=== PATIENT | male | born 1975 | race Caucasian/White ===

== ENCOUNTER 2017-08-28 14:59 | Inpatient (IN) | payer MEDICARE, MEDICAID ==
[2017-08-28] MEDS ORDERED: EPINEPHrine 1 MG/ML AMP ONE ×2 (15:14→15:15)
[2017-08-28] MEDS ORDERED: Vancomycin HCl 1 GM in Premix Bag 1 BAG IVPB SCH (16:15)
[2017-08-28] MEDS ORDERED: Gentamicin Sulfate 80 MG in Premix Bag 1 BAG IVPB SCH (16:15)
[2017-08-28 16:37] LABS: #Basophils 0.1 thou/uL (0.0-0.2); #Eosinphils 0.3 thou/uL (0.0-0.7); #Lymphocytes 2.8 thou/uL (1.20-3.40); #Monocytes 1.5 thou/uL (0.11-0.59); #Neutrophils 13.8 thou/uL (1.40-6.50); %Basophils 0.6 % (0.0-1.0); %Eosinophils 1.8 % (0.0-10.0); %Lymphocytes 15.2 % (21.0-51.0); %Monocytes 7.9 % (0.0-10.0); Hematocrit 33.9 % (42.0-52.0); Red Blood Cell (RBC) Count 3.61 mill/uL (4.70-6.10); White Blood Cell (WBC) Count 18.5 thou/uL (4.8-10.8)
[2017-08-28 16:59] LABS: Anion Gap 21 mmol/L (10-20); BUN (Urea Nitrogen) 62 mg/dL (8.9-20.6); Calc. Creatinine Clearance 0 mL/min (70-130); Calcium 9.2 mg/dL (7.8-10.44); Carbon Dioxide 25 mmol/L (22-29); Chloride 98 mmol/L (98-107); Estimated GFR-MDRD 7
[2017-08-28] MEDS ORDERED: Dextrose 50% Abboject 50 ML SYRINGE IVP PRN (19:33)
[2017-08-28] MEDS ORDERED: Dextrose 5% in Water 1,000 ML IV PRN (19:33)
[2017-08-28] MEDS ORDERED: HumaLOG 300 UNITS/3 ML VIAL SC PRN (19:33)
[2017-08-28] MEDS ORDERED: HYDROcodone/Acetaminophen 5/325 mg Tablet PO PRN ×2 (19:34)
--- NOTE | 2017-08-28 21:10 | HP ---
HISTORY OF PRESENT ILLNESS: Nimesh Tolbert is a 41-year-old male patient, dialyzes Friday, and Friday, . The patient is followed by Dr. Pearce. 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 Axillary artery repair undertaken and a left wrist Tequila fistula placed. This failed to mature an d had faint signals and Dr. Venkat Dominguez performed arteriography noting brachial artery to be occlu ded. The patient subsequently underwent revascularization with reverse greater saphenous vein from right thigh. This was placed through a left axillary incision and seemed to work well, but develope d an infection, bleeding requiring emergent removal and ligation of the proximal distal artery. Onc e this was ligated, wound was left open to heal by secondary intention with wound VAC. It has since healed. He has been relying on a left internal jugular cuffed tunnel dialysis catheter. I saw him on last visit and informed him that he will need more permanent dialysis access. [facility] and is not a candidate for peritoneal dialysis. He is reluctant to have access in his rig ht arm due to the complications resulting in tissues of his left arm. In addition, he has developed ischemic changes in all fingertips and thumb tips. This left arm is paralyzed. He will probably w ind up with partial amputation of the left arm. Patient has developed Pseudomonas bacteremia and aranda s been sent to my office. In my office, the catheter and cuff were dislodged and he was admitted to the hospital for dialysis today. Antibiotic administration and post-dialysis removal of his cathet er. We will place a new catheter tomorrow. He can be discharged home tomorrow postoperatively. Considering his paralyzed left arm and ischemic fingers, he has a risk for amputation, have discusse d with Vascular Surgery. The situation is felt that it is not worthwhile trying to revascularize th e arm again considering his past failures. It is likely he will need a partial amputation of his le ft arm in the future. It is also necessary that he will need a right arm fistula or graft. This aranda s been reiterated to the patient. Marking ultrasound, 03/18/2017 was performed and revealed that hi s right cephalic vein and right basilic vein are small, probably not suitable for a fistula. ALLERGIES: None. TOBACCO: None. ALCOHOL: None. MEDICATIONS: Velphoro 1000 mg p.o. t.i.d. with meals, Protonix 40 mg at bedtime, Zofran p.r.n., Fos renol t.i.d. with meals, hydrocodone 5/325 p.r.n. pain, folic acid daily, atorvastatin, calcium ita y, aspirin 81 mg daily. PAST MEDICAL HISTORY: End-stage renal disease, paralyzed left arm, hypertension, hypertriglyceridem ia; diabetes mellitus type 2, coronary artery disease, status post coronary bypass grafting and aort ic valve replacement. PAST SURGICAL HISTORY: Toe amputations, coronary artery stents, bypass grafting, aortic valve repla cement, removal of bovine graft left upper arm after placement in [place] due to infection and hemorr eliana, brachial artery repair as described, left Tequila fistula, subsequent breakdown in bleeding req uiring ligation of brachial artery and wound healing by secondary intention. PHYSICAL EXAMINATION: VITAL SIGNS: 87/58, 240 pounds, 70 inches, 97 heart rate, 98.2 degrees. HEENT: Unremarkable. LUNGS: Clear to auscultation. CARDIAC: Rhythm without murmur or gallop. ABDOMEN: Soft, nontender. Left axillary wound well healed. EXTREMITIES: Paralyzed left arm, ischemic fingertips, thumb, and all fingers, left hand. Palpable radial pulse right. Dialysis catheter left chest. ASSESSMENT AND PLAN: 1. Pseudomonas bacteremia. Plan dislodgement of the catheter today in the office, removal of the c uff, freeing it to enable removal post-dialysis. We will plan dialysis tonight, vancomycin, gentami germaine administration. We will plan removal of the catheter tonight after dialysis, asked nurse to do this as it is not tunneled and not cuffed at this time. We will plan placement of a new dialysis ca theter tomorrow. 2. Paralyzed left arm at risk for amputation with ischemic left hand. I have discussed with Vascul ar Surgery, and we will not revascularize this considering his past 2 failures. 3. Prosthetic aortic valve. He will need prolonged intravenous antibiotics due to Pseudomonas bact eremia. 4. Needs custodial dialysis access. We will need a right arm graft in the future as an outpatient, probably not a candidate for peritoneal dialysis, although could consider considering this situatio n, although could not do this in the assisted probably and he is one handed and this will be dif ficult for him individually to manage peritoneal dialysis at home.
[2017-08-28] MEDS: Acetaminophen 500 MG TAB PO PRN (23:06)
--- NOTE | 2017-08-29 06:00 | CON ---
DATE OF CONSULTATION: 08/28/2017 CONSULTING PHYSICIAN: Brayan Graham M.D. REASON FOR CONSULTATION: End-stage renal disease evaluation and care. REASON FOR ADMISSION: Infected dialysis access. HISTORY OF PRESENT ILLNESS: This is a 41-year-old male with a history of end-stage renal disease, h ypertension, type 2 diabetes, who came to the hospital not feeling well. The patient is having Pseu domonas growth from his catheter and plan is to have a change out of the catheter. The patient will be admitted to dialysis and get dialysis today and then removal of the old catheter and placement o f a new catheter by Dr. Graham tomorrow. PAST MEDICAL HISTORY: Positive for end-stage renal disease, hypertension, hyperlipidemia, type 2 di abetes, coronary artery disease. PAST SURGICAL HISTORY: Dialysis access placement, multiple toe amputations, CABG, aortic valve repl acement. HOME MEDICATIONS: Tylenol, Norvasc, aspirin, Lipitor, Coreg, clindamycin. ALLERGIES: No known drug allergies. SOCIAL HISTORY: No smoking, alcohol, or illicit drug abuse. FAMILY HISTORY: No history of any kidney disease. REVIEW OF SYSTEMS: The following complete review of systems was negative, unless otherwise mentione d in the HPI or below: Constitutional: Weight loss or gain, ability to conduct usual activities. Skin: Rash, itching. Eyes: Double vision, pain. ENT/Mouth: Nose bleeding, neck stiffness, pain, tenderness. Cardiovascular: Palpitations, dyspnea on exertion, orthopnea. Respiratory: Shortnes s of breath, wheezing, cough, hemoptysis, fever or night sweats. Gastrointestinal: Poor appetite, abdominal pain, heartburn, nausea, vomiting, constipation, or diarrhea. Genitourinary: Urgency, fr equency, dysuria, nocturia. Musculoskeletal: Pain, swelling. Neurologic/Psychiatric: Anxiety, de pression. Allergy/Immunologic: Skin rash, bleeding tendency. PHYSICAL EXAMINATION: GENERAL: This is a well-developed male, in no apparent distress. VITAL SIGNS: Temperature 98.7, pulse 78, respiratory rate 18, blood pressure 120/88. HEENT: Atraumatic, normocephalic. Oral mucosa is moist. NECK: Supple, no masses. CARDIOVASCULAR: S1, S2 heard. Rate and rhythm regular. RESPIRATORY: Clear. GASTROINTESTINAL: Abdomen is soft. MUSCULOSKELETAL: No tenderness. No edema. DERMATOLOGIC: No skin rash. NEUROLOGIC: Alert, awake. PSYCHIATRIC: Mood and affect normal. LABORATORY DATA: Hemoglobin is 10.7, WBC is 18.5. ASSESSMENT AND PLAN: 1. End-stage renal disease, on hemodialysis. The patient was seen and evaluated for dialysis. ___ __ we will have dialysis. We will give 1 g of vancomycin and gentamicin with dialysis and plan is t o change out the catheter and I will give antibiotics for 2 weeks, repeat culture. We will also kevin ck echocardiogram. 2. Hyperkalemia, much better. We will recheck labs. 3. Anemia, mild. 4. Hypertension, stable. 5. Edema, controlled. Plan is to continue dialysis, change the catheter out and continue antibiotics for 2 weeks, and we w ill repeat cultures. We will follow.
[2017-08-29] MEDS: Acetaminophen 500 MG TAB PO PRN (06:44)
[2017-08-29 07:20] VITALS: TEMP 97.9
[2017-08-29] MEDS ORDERED: Bupivacaine PF 0.5% 30 ML VIAL ONE (08:11)
[2017-08-29] MEDS ORDERED: Sodium Chloride 0.9% 10 ML ONE (08:11)
[2017-08-29] MEDS ORDERED: Lidocaine 2% w/Epinephrine 1:200K 20 ML VIAL ONE (08:13)
[2017-08-29] MEDS ORDERED: Lanthanum Carbonate 500 mg Tablet PO SCH (09:00)
[2017-08-29] MEDS ORDERED: VELPHORO 500 MG PO SCH (09:00)
[2017-08-29] MEDS ORDERED: Aspirin 325 MG TAB PO SCH (09:00)
[2017-08-29] MEDS ORDERED: Heparin 1,000 UNITS/ML VIAL ONE (11:11)
[2017-08-29] MEDS ORDERED: Propofol 200 MG/20 ML VIAL ONE (11:36)
[2017-08-29] MEDS ORDERED: Midazolam HCl 2 mg/2 ml Vial ONE (11:40)
--- NOTE | 2017-08-29 12:33 | OP ---
DATE OF OPERATION: 08/29/2017 PREOPERATIVE DIAGNOSES: End-stage renal disease, legally blind, Pseudomonas bacteremia, status post removal of left internal jugular cuffed tunnel dialysis catheter, ischemic left arm, occluded left brachial artery, in need of future dialysis access, right arm ischemic changes fingertips, will need a partial amputation of the left arm future. PROCEDURE: Placement of right IJ cuffed tunneled dialysis catheter, angiodynamics precurved. Fluor oscopy and ultrasound used to facilitate catheter placement. SURGEON: Dr. Brayan Graham ANESTHESIA: Intravenous sedation and local 0.5% Marcaine, 30 mL, mixed with 2% Xylocaine, 20 mL. PROCEDURE IN DETAIL: The patient was taken to the operating room where under intravenous sedation, neck and chest were prepared with ChloraPrep, draped in routine fashion. Local anesthetic mixture i nfiltrated into skin and subcutaneous tissue about the operative site. Ultrasound was used to cannu late the right internal jugular vein, threaded, J-wire removed. Trocar catheter, enlarging the skin entrance site sharply with an 11 blade. Stab incision made over the right chest. Using the tunnel ing device, the precurved angiodynamics cuffed tunnel hemodialysis catheter tunneled between the two incisions, placing the fabric cuff beneath the skin and catheter secured with 2 interrupted sutures of 3-0 silk. Smaller and medium sized dilators placed over the J-wire into the internal jugular ve in and removed. Dilator and pull-away sheath placed over the J-wire in superior vena cava and dilat or and J-wire removed. Catheter placed with pull-away sheath; pull-away sheath removed. Fluoroscop ically, catheter noted to be in good position, platysma approximated with 4-0 Monocryl, skin with vieyra bdermal 4-0 Monocryl and DermaGlue and sterile dressings applied. Each port aspirated blood and flu shed with saline solution then flushed with heparinized saline solution 1000 units heparin per mL in dicated volume of the port.
[2017-08-29 12:39] VITALS: BP 120/63
[2017-08-29] MEDS ORDERED: Gentamicin Sulfate 80 MG in Premix Bag 1 BAG IVPB SCH (13:00)
[2017-08-29 13:17] VITALS: BMI 33.5
--- NOTE | 2017-08-29 14:01 | PRG ---
DATE OF SERVICE: 08/29/2017 SUBJECTIVE: Patient was seen and examined at bedside and overnight events noted. Patient denies an y shortness of breath or chest pain or palpitation. No history of nausea or vomiting or diarrhea or fever or chills or cramps. OBJECTIVE: GENERAL: This is a well-built male in no apparent distress. VITAL SIGNS: Temperature 97.9. Pulse 70. Respiratory rate 18. Blood pressure 113/58. HEENT: Atraumatic and normocephalic. Oral mucosa is moist. NECK: Supple. CARDIOVASCULAR: S1, S2 heard. Rate and rhythm regular. RESPIRATORY: Clear to auscultation. GASTROINTESTINAL: Abdomen is soft. MUSCULOSKELETAL: No tenderness. No edema. DERMATOLOGIC: No skin rash. NEUROLOGIC: Alert and awake and oriented x3. No focal neurologic deficits. Moving all the extremi ties. PSYCHIATRIC: Mood and affect normal. LABORATORY DATA: Potassium is 5.3, BUN is 62, and creatinine 8.09. ASSESSMENT AND PLAN: 1. End-stage renal disease on hemodialysis. Continue dialysis as tolerated. We will have dialysis today and okay to discharge home. 2. Hyperkalemia. 3. Anemia. 4. Hypertension. 5. Edema. 6. Plan is to have dialysis for 3 hours today with gentamicin for 4 weeks and we will follow up ech ocardiogram also. We will follow. Thank you for the consult.
--- NOTE | 2017-08-29 15:14 | RAD ---
PORTABLE CHEST 1 VIEW: Date: 08/29/17 Time: 1218 hours HISTORY: End-stage renal disease. FINDINGS/IMPRESSION: There are changes of median sternotomy. The heart is enlarged. There is a right internal jugular estefani ble lumen dialysis catheter with tips in the projection of the SVC. No pneumothoraces, lobar consoli dation, lizzeth pulmonary edema, or large effusions are seen. POS: KYLE
--- NOTE | 2017-08-30 10:01 | DIS ---
DATE OF ADMISSION: 08/28/2017 DATE OF DISCHARGE: 08/29/2017 DISCHARGE DIAGNOSES: 1. Legal blindness. 2. Paralyzed left arm. 3. Occluded left brachial artery. 4. End-stage renal disease, on maintenance dialysis via left IJ hemodialysis catheter. 5. Positive bacteremia, Pseudomonas. 6. Status post aortic valve replacement and coronary artery bypass grafting. 7. Diabetes mellitus. 8. Hypertension. 9. Decreased mobility. 10. [facility] resident. PROCEDURES: Removal of left internal jugular cuffed tunnel dialysis catheter in my office, freeing the cuff, leaving the catheter, admission to the hospital, dialysis and gentamicin intravenous admin istration along with vancomycin 1 g. The patient had a fever that night in the hospital, at midnigh t 101, but none since. He was taken to the operating room the next day and a right IJ cuffed tunnel hemodialysis catheter placed. The patient tolerated the procedure well. He went to dialysis posto peratively and being transferred to the [facility]. The patient has been reluctant to have a right arm fistula considering the status of his left arm, w hich is nonfunctional. He has ischemic changes in left hand and will need a partial amputation of l eft arm. Transcutaneous oxygen measurements had been ordered and hyperbaric to help determine level of amputation at left arm, but there was no one present in the hospital to do this in this hospital ization and this was not done. The patient had a new dialysis catheter placed today and then underg [facility] dialysis will be transferred back to the senior living. He will see me in the office in about 2 weeks. He will get gentamicin during dialysis under Dr. Pearce's orders for the next 4-5 weeks, c onsidering his prosthetic aortic valve and Pseudomonas bacteremia. He will need a right arm fistula or graft in the future. Ultrasound vein mapping previously reveals veins supoptimal for fistula, b ut exploration will be undertaken to help accomplish this versus a prosthetic graft. He is not a ca ndidate for peritoneal dialysis due to non-use of his left arm. As far as the left arm, probably re ferral to Dr. Chino, who had to be made for partial amputation of left arm. TCOM measurements of t he left arm for determination of amputation level need to be obtained. The patient will resume his prehospitalization admission medications.
== END 2017-08-29 19:13 | disposition home or self-care (01) | DRG 314 ==
LOC: T4-A 15:05 → ONC 15:43
PROVIDERS: ADMIT Specialist; ATTEND Specialist
PROC: 5A1D70Z Performance of Urinary Filtration, Intermittent, Less than 6 Hours Per Day (ICD-10-PCS; 2017-08-28)
PROC: 02HV33Z Insertion of Infusion Device into Superior Vena Cava, Percutaneous Approach (ICD-10-PCS; principal; 2017-08-29)
DX: T82.7XXA Infection and inflammatory reaction due to other cardiac and vascular devices, implants and grafts, initial encounter (principal); N18.6 End stage renal disease; I12.0 Hypertensive chronic kidney disease with stage 5 chronic kidney disease or end stage renal disease; E87.5 Hyperkalemia; E11.9 Type 2 diabetes mellitus without complications; B96.5 Pseudomonas (aeruginosa) (mallei) (pseudomallei) as the cause of diseases classified elsewhere; D64.9 Anemia, unspecified; I70.208 Unspecified atherosclerosis of native arteries of extremities, other extremity; G83.24 Monoplegia of upper limb affecting left nondominant side; H54.8 Legal blindness, as defined in USA; Z95.2 Presence of prosthetic heart valve; Z99.2 Dependence on renal dialysis; Z95.1 Presence of aortocoronary bypass graft; Z89.429 Acquired absence of other toe(s), unspecified side; Z79.82 Long term (current) use of aspirin; Y83.8 Other surgical procedures as the cause of abnormal reaction of the patient, or of later complication, without mention of misadventure at the time of the procedure
CPT/HCPCS: 36416; 71010; 80048; 85025; 87040; 87077; 87149; 87186; 87340; 90935; 93306; A4216; C1752; C1769; G0257; J0171; J1580; J1642; J1644; J2250; J2704; J3370; S0020

== ENCOUNTER 2018-01-29 11:40 | Inpatient (IN) | payer OTHER, MEDICARE, MEDICAID ==
[2018-01-29 12:19] LABS: #Basophils 0.1 thou/uL (0.0-0.2); #Lymphocytes 1.1 thou/uL (1.20-3.40); #Monocytes 1.1 thou/uL (0.11-0.59); #Neutrophils 11.2 thou/uL (1.40-6.50); %Basophils 0.6 % (0.0-1.0); %Eosinophils 0.1 % (0.0-10.0); %Lymphocytes 8.4 % (21.0-51.0); %Monocytes 7.8 % (0.0-10.0); %Neutrophils 83.1 % (42.0-75.0); Hemoglobin 13.4 g/dL (14.0-18.0); Mean Corpuscular HGB CONC 31.2 g/dL (32.0-36.0); Mean Corpuscular Hemoglobin 30.1 pg (27.0-31.0); Mean Corpuscular Volume 96.4 fl (80.0-94.0); Mean Platelet Volume 8.6 fL (7.4-10.4); Platelet Count 151 thou/uL (130-400); RBC Distribution Width 15.5 % (11.5-14.5); Red Blood Cell (RBC) Count 4.46 mill/uL (4.70-6.10); White Blood Cell (WBC) Count 13.5 thou/uL (4.8-10.8)
[2018-01-29] MEDS ORDERED: Ondansetron HCl/PF 4 MG/2 ML Vial ONE ×2 (12:20→12:22)
[2018-01-29] MEDS ORDERED: Morphine 4 MG/ML VIAL ONE (12:20)
[2018-01-29 12:39] LABS: ALT (SGPT) 20 U/L (8-55); AST (SGOT) 10 U/L (5-34); Albumin 3.9 g/dL (3.5-5.0); Alkaline Phosphatase 107 U/L (40-150); Anion Gap 21 mmol/L (10-20); BUN (Urea Nitrogen) 73 mg/dL (8.9-20.6); Bilirubin, Total 0.5 mg/dL (0.2-1.2); Calc. Creatinine Clearance 0 mL/min (70-130); Calcium 9.1 mg/dL (7.8-10.44); Carbon Dioxide 22 mmol/L (22-29); Chloride 96 mmol/L (98-107); Estimated GFR-MDRD 6; Globulin 3.5 g/dL (2.4-3.5); Glucose 136 mg/dL (70-105); Potassium 5.1 mmol/L (3.5-5.1); Protein, Total 7.4 g/dL (6.0-8.3); Sodium 134 mmol/L (136-145)
[2018-01-29] MEDS ORDERED: Acetaminophen 500 MG TAB PO PRN ×2 (18:08→19:33)
[2018-01-29] MEDS ORDERED: Dextrose 5% in Water 1,000 ML IV PRN (19:33)
[2018-01-29] MEDS ORDERED: HumaLOG 300 UNITS/3 ML VIAL SC PRN (19:33)
[2018-01-29] MEDS ORDERED: hydrALAZINE 20 MG/ML VIAL SLOW IVP PRN (19:33)
[2018-01-29] MEDS ORDERED: Ondansetron HCl/PF 4 MG/2 ML Vial IVP PRN (19:33)
[2018-01-29] MEDS ORDERED: Polyethylene Glycol 3350 17 GM Packet PO PRN (19:33)
[2018-01-29] MEDS ORDERED: Docusate 100 MG CAP PO PRN (19:33)
[2018-01-29] MEDS ORDERED: Dextrose 50% Abboject 50 ML SYRINGE SLOW IVP PRN (19:33)
[2018-01-29] MEDS ORDERED: Ondansetron ODT 4 MG TAB PO PRN (19:33)
[2018-01-29] MEDS ORDERED: Famotidine 20 MG TAB PO SCH (21:00)
--- NOTE | 2018-01-29 21:05 | HP ---
DATE OF ADMISSION: 01/29/2018 PRIMARY CARE PHYSICIAN: Dr. Nimesh Graham. PRIMARY CADASTRAL ENGINEER: Dr. Pearce. CHIEF COMPLAINT: Left arm swelling and fever. HISTORY OF PRESENT ILLNESS: This is a 42-year-old male who presents from [facility] complaining of less than one-day history of left upper extremity redness, swelling, and fever. Patient states he woke up and the arm was red, swollen, and painful with diffic ulty to bend at the elbow. Patient does state he receives hemodialysis 3 times per week at [facility] on Friday, Friday, and Friday. Patient states he has been on dialysis since 7. Patient reports he was last in dialysis in the last 24 hours. Patient admits to subjective fever , chills, and body aches with difficulty bending the left elbow to a straight position. Patient also admits to drainage and loss of fingernails on the left hand, but is unclear on the time course of th e condition. Patient with an extensive history of peripheral vascular disease, end-stage renal disea se on hemodialysis as well as coronary artery disease, and advanced diabetes mellitus, insulin requir ing. Patient has had 4 toe amputations as well as undergone dialysis shunt placement and bypass surg fabián x3. In the emergency department, patient was noted with swelling to the left upper extremity wit h profound erythema and Calor treated with IV vancomycin, morphine sulfate, and Zofran. Patient was referred to the Hospitalist Service for admission. PAST MEDICAL HISTORY: 1. End-stage renal disease with current hemodialysis on Friday, Friday, and Friday. 2. Left upper extremity paresis. 3. Peripheral vascular disease with ischemic left hand. 4. Hypertension. 5. Hyperlipidemia. 6. Diabetes mellitus type 2, insulin requiring with end-stage renal disease, diabetic retinopathy, a nd peripheral vascular disease. 7. Coronary artery disease. PAST SURGICAL HISTORY: 1. Status post amputation of two toes on each foot. 2. Status post AV fistula placement for hemodialysis. 3. Status post coronary artery bypass grafting x3 vessels. 4. Status post aortic valve replacement. 5. Status post removal of bovine graft. 6. Status post placement and subsequent removal of temporary-tunneled hemodialysis catheters. 7. Status post brachial artery repair. CURRENT MEDICATIONS: 1. Aspirin 325 mg 1 tab p.o. daily. 2. Lipitor 80 mg p.o. at bedtime. 3. PhosLo 1334 mg p.o. b.i.d. with meals. 4. Coreg 3.125 mg p.o. b.i.d. 5. Zyrtec 10 mg p.o. daily. 6. Vitamin D3 of 2000 units p.o. daily. 7. Docusate sodium 100 mg p.o. daily. 8. Folic acid 0.8 mg p.o. daily. 9. Humalog 5 units subcutaneously t.i.d. with meals. 10. [place] 5/325 mg 1 tab p.o. q.4-6 hours p.r.n. pain. 11. Tresiba FlexTouch 50 units subcutaneously at bedtime. 12. Probiotic 1 capsule p.o. daily. 13. Melatonin 6 mg p.o. at bedtime. 14. Zofran 4 mg p.o. q.6 hours p.r.n. nausea. 15. Veltassa 8.4 grams p.o. b.i.d. 16. MiraLax 17 grams p.o. daily. 17. Risperdal 0.25 mg p.o. at bedtime. ALLERGIES: No known drug allergies. FAMILY HISTORY: Positive for diabetes mellitus and hypertension. SOCIAL HISTORY: Patient resides at [facility]. No current alcohol, t obacco, or illicit drug use. Medical power of research attorney, Tee Lopez. CODE STATUS: DO NOT RESUSCITATE, confirmed with the patient. REVIEW OF SYSTEMS: The following complete review of systems was otherwise negative, except as stated per HPI: Constitutional: Weight loss or gain, ability to conduct usual activities. Skin: Rash, i tching. Eyes: Double vision, pain. ENT/Mouth: Nose bleeding, neck stiffness, pain, tenderness. C ardiovascular: Palpitations, dyspnea on exertion, orthopnea. Respiratory: Shortness of breath, whe ezing, cough, hemoptysis, fever or night sweats. Gastrointestinal: Poor appetite, abdominal pain, h eartburn, nausea, vomiting, constipation, or diarrhea. Genitourinary: Urgency, frequency, dysuria, nocturia. Musculoskeletal: Pain, swelling. Neurologic/Psychiatric: Anxiety, depression. Allergy/ Immunologic: Skin rash, bleeding tendency. PHYSICAL EXAMINATION: VITAL SIGNS: Vital signs on admission showed a blood pressure 115/112, pulse 88, respiratory rate 20 , temperature 99.3 degrees Fahrenheit, O2 saturation 99% on room air. GENERAL APPEARANCE: This is a 42-year-old male, alert and oriented x3, pleasant, responsiv e, in no acute distress. HEENT: Extraocular muscles are intact. No scleral icterus, no conjunctival injection. Nares patent . OP is clear. NECK: Supple, no cervical adenopathy, no thyromegaly, no carotid bruits, no JVD appreciated. Cervic al spine with full active and passive range of motion. CHEST: Lungs are clear to auscultation bilaterally. CARDIOVASCULAR: S1, S2 without noted murmur. ABDOMEN: Rounded, soft, nontender, nondistended. Bowel sounds are positive in all four quadrants. There is no hepatosplenomegaly, no abdominal bruits, no rebound or guarding appreciated. EXTREMITIES: No clubbing, cyanosis. No lower extremity asymmetric edema noted. Pulses is diminishe d in the dorsalis pedis and posterior tibial arteries. Post-surgical changes to bilateral feet consi stent with prior amputation of first and second toes. Left upper extremity with erythema, edema, and Calor with tenderness to palpation. Decreased range of motion of the left upper extremity with some contractures noted of the hand. Left hand fingertips with maceration, malodorous, purulent discharg e consistent with wet-gangrene. Ischemic changes noted at the fingertips of all fingers of the left hand. NEUROLOGIC: Visual impairment noted, chronic. Rest of the cranial nerves II-XII are grossly intact. Patient not observed ambulatory during this exam. Left upper extremity with paresis and contractur e of the hand. PERTINENT LABORATORY DATA AND X-RAY FINDINGS: Sodium 134, potassium 5.1, chloride 96, CO2 of 22, BUN 73, creatinine 9.49, estimated GFR 6, glucose 136. Lactic acid level 1.1, calcium 9.1. LFTs within normal limits. CBC showed a white blood cell count of 13.5, hemoglobin 13.4, hematocrit of 43, MCV 96, platelet count 151, 83% neutrophilia. ASSESSMENT AND PLAN: 1. Left upper extremity cellulitis. Patient will be admitted to the telemetry unit. We will contin ue vancomycin, sliding scale due to end-stage renal disease on hemodialysis. Add Rocephin 2 grams IV q.24 hours, first dose now. Blood cultures x2 pending. Consult General Surgery service for evaluat ion of left upper extremity arteriovenous fistula. Continue to monitor clinical response. 2. Gangrene of the left fingertips. We will continue antibiotic therapy as outlined in #1. Consult Wound Care team for local care and evaluation. Consult General Surgery service for consideration of surgical intervention. 3. End-stage renal disease with hemodialysis. We will consult Nephrology service for ongoing [facility] hemodialysis during the hospital course. No current evidence of acute volume overload with nee d for urgent hemodialysis. 4. Diabetes mellitus, type 2, insulin requiring. Continue home insulin regimen. Insulin sliding sc lalo for reflexive coverage. Accu-Cheks before meals and at bedtime. ADA diet. 5. Neutrophilic leukocytosis secondary to #1. We will continue treatment as outlined in #1. Repeat CBC in the a.m. 6. Peripheral vascular disease with occluded left brachial artery. Consult General Surgery service for evaluation and consideration for surgical intervention. 7. Coronary artery disease, chronic and stable. Resume home medication regimen to include aspirin 3 25 mg daily. Continue Lipitor 80 mg p.o. at bedtime. 8. Prophylaxis. Sequential compression devices while in bed. Pepcid 20 mg p.o. b.i.d. Influenza a nd pneumonia vaccinations, current. 9. Code status is DO NOT RESUSCITATE, confirmed with the patient. Medical power of research attorney, Tee Lopez.
[2018-01-29] MEDS: cefTRIAXone\\ROCEPHIN 2 GM in Sodium Chloride 0.9% 100 ML IVPB SCH (21:29)
[2018-01-29] MEDS: Atorvastatin Calcium 40 MG TAB PO SCH (21:30)
[2018-01-29] MEDS: Carvedilol 3.125 MG TAB PO SCH (21:30)
[2018-01-29] MEDS: Famotidine 20 MG TAB PO SCH (21:30)
[2018-01-29] MEDS: risperiDONE 0.25 MG TAB PO SCH (21:31)
[2018-01-29] MEDS: Heparin 5,000 UNITS/ML VIAL SC SCH ×2 (21:32)
[2018-01-29] MEDS: Melatonin 3 MG TAB PO SCH (21:32)
--- NOTE | 2018-01-29 23:14 | CON ---
DATE OF CONSULTATION: 01/29/2018 CONSULTING PHYSICIAN: Dr. Luna. REASON FOR CONSULTATION: End-stage renal disease evaluation and care. REASON FOR ADMISSION: Left cellulitis. HISTORY OF PRESENT ILLNESS: This is a 42-year-old white male with history of end-stage renal disease , hypertension, type 2 diabetes, CHF, hyperlipidemia, who came to the hospital with left arm pain and swelling and redness and is being treated for left arm cellulitis. The patient gets dialysis Friday , Friday, and Friday. Nephrology consult for maintenance hemodialysis. No nausea, vomiting repor lucio. He had some chills and fever. PAST MEDICAL HISTORY: Positive for end-stage renal disease on hemodialysis Friday, Friday, and ; CHF; CAD; type 2 diabetes; hyperlipidemia. PAST SURGICAL HISTORY: Dialysis shunt placement and amputation, appendectomy, cholecystectomy. HOME MEDICATIONS: Include PhosLo, Zyrtec, vitamin D3, Coreg, Zofran, [place], Joana-Anel, Tylenol, Allyn Lax, and Veltassa. ALLERGIES: No known drug allergies. SOCIAL HISTORY: No smoking, alcohol or illicit drug abuse. FAMILY HISTORY: No history of any kidney disease. REVIEW OF SYSTEMS: The following complete review of systems was negative, unless otherwise mentioned in the HPI or below: Constitutional: Weight loss or gain, ability to conduct usual activities. Skin: Rash, itching. Eyes: Double vision, pain. ENT/Mouth: Nose bleeding, neck stiffness, pain, tenderness. Cardiovascular: Palpitations, dyspnea on exertion, orthopnea. Respiratory: Shortness of breath, wheezing, cough, hemoptysis, fever or night sweats. Gastrointestinal: Poor appetite, abdominal pain, heartburn, nausea, vomiting, constipation, or diarr hea. Genitourinary: Urgency, frequency, dysuria, nocturia. Musculoskeletal: Pain, swelling. Neurologic/Psychiatric: Anxiety, depression. Allergy/Immunologic: Skin rash, bleeding tendency. PHYSICAL EXAMINATION: GENERAL: This is a well-built male, in no apparent distress. VITAL SIGNS: Temperature 100.2, pulse 87, respiratory rate 18, blood pressure 113/69. HEENT: Atraumatic, normocephalic. Oral mucosa is moist. NECK: Supple, no masses. CARDIOVASCULAR: S1, S2 heard. Rate and rhythm regular. RESPIRATORY: Clear. GASTROINTESTINAL: Abdomen is soft. MUSCULOSKELETAL: 1+ edema. DERMATOLOGIC: No rash. NEUROLOGIC: Alert and awake. PSYCHIATRIC: Mood and affect normal. LABORATORY DATA: Hemoglobin is 13.4. Potassium is 5.1, BUN is 73, creatinine is 9.4. ASSESSMENT AND PLAN: 1. End-stage renal disease. Continue on dialysis Friday, Friday, and Friday. No dialysis today. 2. Edema, controlled. 3. Hypertension. 4. Anemia. Hemoglobin is stable. 5. Obesity. Plan is to continue on dialysis as tolerated.
[2018-01-30 06:01] LABS: Band 1 % (5-11); Hemoglobin 11.7 g/dL (14.0-18.0); Lymphocytes 21 % (21-51); MDiff Complete? YES; Mean Corpuscular HGB CONC 32.2 g/dL (32.0-36.0); Mean Corpuscular Hemoglobin 30.6 pg (27.0-31.0); Mean Corpuscular Volume 95.2 fl (80.0-94.0); Mean Platelet Volume 8.9 fL (7.4-10.4); Monocytes 12 % (0-10); Neutrophil 66 % (42-75); PLT Morphology Comment Appears Adequate; Platelet Count 140 thou/uL (130-400); RBC Distribution Width 15.2 % (11.5-14.5); Red Blood Cell (RBC) Count 3.83 mill/uL (4.70-6.10); White Blood Cell (WBC) Count 11.8 thou/uL (4.8-10.8)
[2018-01-30 06:02] LABS: Anion Gap 23 mmol/L (10-20); BUN (Urea Nitrogen) 91 mg/dL (8.9-20.6); Calc. Creatinine Clearance 17 mL/min (70-130); Calcium 8.7 mg/dL (7.8-10.44); Carbon Dioxide 22 mmol/L (22-29); Chloride 99 mmol/L (98-107); Estimated GFR-MDRD 5; Glucose 121 mg/dL (70-105); Potassium 5.5 mmol/L (3.5-5.1); Sodium 138 mmol/L (136-145)
[2018-01-30] MEDS ORDERED: HumaLOG 300 UNITS/3 ML VIAL SC SCH (08:00)
[2018-01-30] MEDS: Folic Acid/Vit B Comp W-C PO SCH (09:12)
[2018-01-30] MEDS: Aspirin 325 MG TAB PO SCH (09:12)
[2018-01-30] MEDS: Lanthanum Carbonate 500 mg Tablet PO SCH ×2 (09:12→18:14)
[2018-01-30] MEDS: Calcium Acetate 667 MG CAP PO SCH ×2 (09:12→18:15)
[2018-01-30] MEDS: Saccharomyces boulardii 250 MG CAP PO SCH (09:12)
[2018-01-30] MEDS: Loratadine 10 MG TAB PO SCH (09:13)
[2018-01-30] MEDS: Heparin 5,000 UNITS/ML VIAL SC SCH ×4 (09:17→20:59)
[2018-01-30] MEDS ORDERED: Heparin 1,000 UNITS/ML VIAL ONE (11:11)
--- NOTE | 2018-01-30 15:36 | PDOC.PN ---
- Subjective Encounter Start Date: 01/30/18 Encounter Start Time: 15:20 Subjective: f/u for LUE cellulitis and ?gangrene of left fingers in context of ischemia -: to LUE and AV fistula in upper extremity. Tx with Vancomycin and Rocephin - Objective Resuscitation Status: Resuscitation Status DNR:Do Not Resuscitate MAR Reviewed: Yes Vital Signs & Weight: Vital Signs (12 hours) Temp Pulse Resp BP Pulse Ox 01/30/18 13:40 98.8 F 81 16 116/58 L 97 01/30/18 08:13 99.4 F 86 16 141/83 H 95 01/30/18 03:35 99.2 F 84 17 147/83 H 95 Weight Admit Weight 292 lb 15.909 oz Weight 292 lb 1.546 oz I&O: 01/29/18 01/30/18 01/31/18 06:59 06:59 06:59 Intake Total 698 Output Total 200 Balance 498 Result Diagrams: 01/30/18 05:34 01/30/18 05:34 Additional Labs: Accuchecks 01/29/18 01/29/18 20:20 17:26 POC Glucose 197 H 107 Microbiology 01/29/18 21:10 Finger Bacterial Culture - Preliminary Staphylococcus species 01/29/18 12:09 Venous blood - Right Arm Blood Culture - Preliminary Specimen has been received and culture in progress. No Growth to date. 01/29/18 12:04 Venous blood - Right Arm Blood Culture - Preliminary Coagulase Neg Staphylococcus Laboratory Tests 01/29/18 01/29/18 01/30/18 12:09 12:09 05:34 WBC 13.5 H Neutrophils % 83.1 H Neutrophils % (Manual) 66 Potassium 5.1 Creatinine 9.49 H EKG Reviewed by me: Yes (Tele - SR in 70's) Phys Exam - Physical Examination Constitutional: NAD HEENT: sclera anicteric, oral pharynx no lesions Neck: no JVD, supple Respiratory: no wheezing, clear to auscultation bilateral Cardiovascular: RRR Gastrointestinal: soft, non-tender, no distention, positive bowel sounds LUE with edema and erythema L hand fingertips with maceration, cyanotic and malodorous discharge LUE flaccid paresis Neurological: moves all 4 limbs Psychiatric: A&O x 3 Deviation from normal: LUE cellulitis in humerus distribution Skin: normal turgor Dx/Plan (1) Cellulitis of left upper extremity Code(s): L03.114 - CELLULITIS OF LEFT UPPER LIMB Status: Acute Comment: Continue Rocephin and sliding scale Vancomycin with HD (2) Gangrene of finger of left hand Code(s): I96 - GANGRENE, NOT ELSEWHERE CLASSIFIED Status: Acute Comment: Consult Gen surgery for evaluation, WCT for local care, continue Vancomycin and Rocephin (3) Bacteremia, coagulase-negative staphylococcal Code(s): R78.81 - BACTEREMIA Status: Acute Comment: Potential contaminant however high risk for staph infection given hx, ischemia and open wounds to Left fingertips (4) ESRD (end stage renal disease) on dialysis Code(s): N18.6 - END STAGE RENAL DISEASE; Z99.2 - DEPENDENCE ON RENAL DIALYSIS Status: Chronic Comment: HD per Renal service, completed maintenance HD 01/30 (5) PVD (peripheral vascular disease) Code(s): I73.9 - PERIPHERAL VASCULAR DISEASE, UNSPECIFIED Status: Chronic Comment: Continue ASA 325mg daily (6) DM2 (diabetes mellitus, type 2) Status: Chronic Qualifiers: Diabetes mellitus longterm insulin use: with business support specialist use Diabetes mellitus complication status: with kidney complications Diabetes mellitus complication detail: with chronic kidney disease Chronic kidney disease stage : on chronic dialysis Qualified Code(s): E11.22 - Type 2 diabetes mellitus with diabetic chronic kidney disease; N18.6 - End stage renal disease; Z79.4 - [facility] (current) use of insulin; Z99.2 - Dependence on renal dialysis Comment: Continue Tresiba 50u sc HS, ISS - Plan continue antibiotics, PT/OT, social security assessor, DVT proph w/SCDs Stable currently -: WCT for local care of L hand -: Continue Rocephin -: Vancomycin sliding scale with HD -: HD per Renal service * AM lab: BMP, CBC
[2018-01-30] MEDS ORDERED: HOLD VANCOMYCIN FOR LEVEL >20 FS SCH (16:15)
[2018-01-30] MEDS ORDERED: Vancomycin Sliding Scale 1 EACH FS ONE (16:15)
[2018-01-30] MEDS ORDERED: Vancomycin HCl 1 GM in Premix Bag 1 BAG IVPB SCH ×4 (16:15)
[2018-01-30] MEDS ORDERED: Vancomycin HCl 1.25 GM in Sodium Chloride 0.9% 250 ML 250 ML IVPB SCH (16:15)
[2018-01-30] MEDS ORDERED: Vancomycin HCl 750 MG in Sodium Chloride 0.9% 250 ML 250 ML IVPB SCH (16:15)
[2018-01-30] MEDS ORDERED: Sodium Chloride 0.9% 10 ML ONE (18:21)
[2018-01-30] MEDS: HumaLOG 300 UNITS/3 ML VIAL SC PRN (18:26)
[2018-01-30 18:32] LABS: Vancomycin, Trough 10.6 ug/mL
[2018-01-30] MEDS: Carvedilol 3.125 MG TAB PO SCH ×2 (19:29→21:00)
[2018-01-30] MEDS: Patiromer Calcium Sorbitex [Veltassa] 8.4 GM PO SCH (20:58)
[2018-01-30] MEDS: Atorvastatin Calcium 40 MG TAB PO SCH (20:59)
[2018-01-30] MEDS: Famotidine 20 MG TAB PO SCH (20:59)
[2018-01-30] MEDS: HYDROcodone/Acetaminophen 5/325 mg Tablet PO PRN (21:00)
[2018-01-30] MEDS: cefTRIAXone\\ROCEPHIN 2 GM in Sodium Chloride 0.9% 100 ML IVPB SCH (21:01)
[2018-01-30] MEDS: Melatonin 3 MG TAB PO SCH (21:01)
[2018-01-30] MEDS: risperiDONE 0.25 MG TAB PO SCH (21:01)
--- NOTE | 2018-01-30 23:30 | PRG ---
DATE OF SERVICE: 01/30/2018 SUBJECTIVE: Patient was seen and examined at bedside and overnight events noted. Patient denies any shortness of breath or chest pain or palpitation. No history of nausea or vomitin g or diarrhea or fever or chills or cramps. OBJECTIVE: GENERAL: This is a well-built male, in no apparent distress. VITAL SIGNS: Temperature 98.0, pulse 81, respiratory rate , blood pressure 116/58. HEENT: Atraumatic, normocephalic. Oral mucosa is moist NECK: Supple. CARDIOVASCULAR: S1 and S2 heard. Rate and rhythm regular. RESPIRATORY: Clear to auscultation. GASTROINTESTINAL: Abdomen is soft. MUSCULOSKELETAL: No tenderness. No edema. DERMATOLOGIC: No skin rash. NEUROLOGIC: Alert and awake and oriented X3, No focal neurologic deficits. Moving all the extremitie s. PSYCHIATRIC: Mood and affect normal. LABORATORY DATA: Potassium is 5.5, BUN 91, creatinine is 10.4. ASSESSMENT AND PLAN: 1. End-stage renal disease. Continue on hemodialysis as tolerated. The patient was seen and evalua lucio at dialysis and we will follow. 2. Edema, controlled. 3. Hypertension. 4. Anemia. 5. Obesity. Plan is to continue on dialysis as tolerated.
--- NOTE | 2018-01-31 00:14 | CON ---
DATE OF CONSULT: 01/30/2018 HISTORY OF PRESENT ILLNESS: A 42-year-old male, DNR patient, shelter resident, [place] dialyze s at [facility]. Mr. Tolbert presented on 03/19/2017, with a left upper arm looped, bovine dialysis graft, placed in [place]. He had an abscess in the axilla that I saw initially requi ring incision and drainage. He has bacteremic from thrombosed loop graft in [place] with methicillin- resistant Staph aureus bacteremia and hemorrhage from the left axillary graft arterial segment. He h ad an excellent left wrist cephalic vein for Tequila fistula. The patient was taken to the operating room on 03/19/2017, a left wrist Tequila fistula placed port heiden vein. I then explored the right brachi al artery, removed the bovine loop graft from the upper arm and repair of the brachial artery with re versed greater saphenous vein patch graft harvested from the right thigh. On 03/21/2017, he had poor function of his left Tequila fistula and he underwent a surgical evaluation with thrombectomy. Notin g good arterial inflow and intraoperative angiogram has ligation of the Tequila fistula collaterals. It was felt that he had a poor signal, but it was patent and at this point on 07/09/2017, the patient was returned to the operating room after Dr. Venkat Dominguez performed an arteriogram, revealing the b rachial artery be occluded. I then harvested the reversed saphenous vein from right thigh, revascula rized the right axillary artery, brachial artery, left arm. On 07/18/2017, the patient experienced h emorrhage from the left axilla with hematoma and underwent exploration, finding disruption of the vei n graft anastomosis. This Tequila fistula was ligated at the wrist to maximize blood flow of the hand and I could not reconstruct the brachial artery. By this time, the patient had a paralyzed left arm . The patient on 08/29/2017 had placement of right IJ cuffed tunnel dialysis catheter because of Pse udomonas bacteremia, requiring removal of the catheter. I initially saw the patient on 02/28/2017 for debridement of diabetic foot ulcers and on 03/04/2017 f or bacteremia related to dialysis catheter. He initially had a dialysis catheter placed at [facility] in [place] and then he was referred to [facility] in [place] for left upp er arm dialysis graft, leading to the bovine graft and subsequent hemorrhage infection, requiring rem oval, and subsequent bleeding and problems relating to paralysis of his left arm and occluded brachia l artery. Upper extremity dialysis access is terminated. The patient did have a marking ultrasound on 03/18/2017, noting cephalic vein in the right upper arm to be poor. This hospitalization, he has a right antecubital IV in place. In the interim, the patient has been sent from [facility], for dialysis access. I have talked to him about consideration of placement of a thigh graft. I have talked to him previously re garding long-term dialysis access to prevent complications of bacteremia from his hemodialysis cathet er, chronic use. The patient, however, is not followed up with me and he states that the dialysis ce melissa in [place] sent him to back to [place] for a long-term dialysis access. I have talked to him in the past about long-term dialysis access probably requiring a prosthetic graft, probably in his right upper extremity versus thigh. He wishes to salvage his only functioning right upper extremity and a void access here and thus we determined that at some point he would need a thigh dialysis graft. The patient is admitted this hospitalization with erythema and cellulitis of left upper arm. At the time of his past surgery, removal of his bovine prosthetic graft in his left upper extremity accompli shed that, and there is no evidence or suggestion that any fragment of this graft remains. The patie nt is admitted for vancomycin and observation. I have been asked to see him regarding his left upper arm cellulitis. The patient has remained afebrile. White count has fallen from 13 to 11 and hemogl obin 11. Blood cultures from his right arm are positive for coagulase negative Staphylococcus. Evaluation of his left arm reveals cellulitis. There is no fluctuance, no induration, no evidence of a foreign body along the course of the previous bovine graft in his upper arm. His left axilla spar ed from the cellulitic process. PHYSICAL EXAMINATION: VITAL SIGNS: Temperature 98.8 degrees, heart rate 81, blood pressure 116/58. LUNGS: Clear to auscultation. CARDIAC: Regular rate and rhythm without murmur or gallop. ABDOMEN: Soft, nontender. EXTREMITIES: Palpable radial positive, right. Paralyzed left arm, erythema of left upper arm, spari ng the axilla, affecting the anterior, anterior medial and slightly lateral upper arm. ASSESSMENT AND PLAN: 1. Bacteremia, positive blood cultures. This could be related to the cellulitis in left upper arm a nd more likely his chronic dialysis catheter. Currently, there are no indications for his surgical a ttention to his left upper arm. As far as I know, there is no prosthetic material in his left upper arm. There are no areas of induration or fluctuance or firmness to suggest a foreign body or drainab le fluid collection. At this point, I would continue parenteral antibiotics. 2. Bacteremia, possibly coming from his left upper arm cellulitis or his chronic indwelling catheter . He has had multiple bacteremic episodes from his chronic indwelling dialysis catheter. I have josé miguel ked to him in the past regarding placement of a more permanent dialysis access in his thigh, but he h as not followed up. He is chosen to go to [place] or at least he has told me that he has been told by the dialysis center in [place] that [facility] in [place] is only place that will provide dialysis access. At this point, with his current bacteremia and his cellulitis left arm, placement of a pros thetic graft is not indicated and would have to be delayed. In the future, I could perform this once his bacteremia is cleared. More than likely, he will require removal of his dialysis catheter, but we will await Dr. Drake' opinion. Currently, there is no indication for surgical intervention in his left upper arm. I suspect this probably will resolve with intravenous antibiotics. 3. Paralysis, left upper arm, exhausted left upper extremity access and patient wishes to avoid acce ss in his right upper arm, preserving his only functional arm. 4. DNR status. 5. End-stage renal disease. I will be out of town this weekend, Dr. Puga has covered him. Please call if needed. I will return next Friday
[2018-01-31] MEDS: Patiromer Calcium Sorbitex [Veltassa] 8.4 GM PO SCH ×4 (00:22→21:25)
[2018-01-31 05:50] LABS: Anion Gap 21 mmol/L (10-20); BUN (Urea Nitrogen) 66 mg/dL (8.9-20.6); Calc. Creatinine Clearance 22 mL/min (70-130); Calcium 9.7 mg/dL (7.8-10.44); Carbon Dioxide 24 mmol/L (22-29); Chloride 96 mmol/L (98-107); Estimated GFR-MDRD 7; Glucose 132 mg/dL (70-105); Potassium 4.7 mmol/L (3.5-5.1); Sodium 136 mmol/L (136-145)
[2018-01-31 06:05] LABS: Eosinophils 3 % (0-10); Hemoglobin 12.5 g/dL (14.0-18.0); Lymphocytes 12 % (21-51); MDiff Complete? YES; Mean Corpuscular HGB CONC 32.3 g/dL (32.0-36.0); Mean Corpuscular Hemoglobin 30.3 pg (27.0-31.0); Mean Corpuscular Volume 93.8 fl (80.0-94.0); Mean Platelet Volume 8.6 fL (7.4-10.4); Monocytes 21 % (0-10); Neutrophil 64 % (42-75); PLT Morphology Comment Appears Adequate; Platelet Count 151 thou/uL (130-400); RBC Distribution Width 15.3 % (11.5-14.5); RBC Morphology Normal; Red Blood Cell (RBC) Count 4.12 mill/uL (4.70-6.10); White Blood Cell (WBC) Count 9.8 thou/uL (4.8-10.8)
[2018-01-31] MEDS: Aspirin 325 MG TAB PO SCH (11:04)
[2018-01-31] MEDS: Calcium Acetate 667 MG CAP PO SCH ×2 (11:04→17:25)
[2018-01-31] MEDS: Carvedilol 3.125 MG TAB PO SCH ×2 (11:05→21:24)
[2018-01-31] MEDS: Folic Acid/Vit B Comp W-C PO SCH (11:05)
[2018-01-31] MEDS: Loratadine 10 MG TAB PO SCH (11:05)
[2018-01-31] MEDS: Saccharomyces boulardii 250 MG CAP PO SCH (11:05)
[2018-01-31] MEDS: Heparin 5,000 UNITS/ML VIAL SC SCH ×4 (11:06→21:23)
[2018-01-31] MEDS: Lanthanum Carbonate 500 mg Tablet PO SCH ×2 (11:06→17:25)
[2018-01-31 12:07] LABS: Troponin I 0.016 ng/mL (< 0.028)
--- NOTE | 2018-01-31 16:26 | PRG ---
Patient Name: EMEKA SPENCE Date of service: 01/31/2018 Subjective: Patient was seen and examined at bedside and overnight events noted. Patient denies any shortness of breath or chest pain or palpitation. No history of nausea or vomiting or diarrhea or fever or chills or cramps. Objective: General: This is a well-built male in no apparent distress. Vital signs: Temperature 98.1, pulse 80, respiratory 18, blood pressure 177/90. HEENT: Atraumatic, normocephalic. Oral mucosa is moist. Neck: Supple. Cardiovascular: S1 S2 heard. Rate and rhythm regular. Respiratory: Clear to auscultation. Gastrointestinal: Abdomen is soft. Musculoskeletal: No tenderness. No edema. Dermatologic: No skin rash. Neurologic: Alert and awake and oriented X3. No focal neurologic deficits. Moving all the extremit ies. Psychiatric: Mood and affect normal. LABORATORY DATA: Potassium is 4.7, BUN 66, creatinine 3.2. ASSESSMENT AND PLAN: 1. End-stage renal disease on hemodialysis. 2. Cellulitis. Continue antibiotics. 3. Edema, controlled. 4. Hypertension. 5. Anemia. 6. Obesity. Continue on dialysis Friday, Friday, and Friday as tolerated.
--- NOTE | 2018-01-31 16:39 | PDOC.PN ---
- Subjective Encounter Start Date: 01/31/18 Encounter Start Time: 16:37 Subjective: c/o pain in left arm.o/w no pain anywhere else.no N/V/D/AP -: nursing reports 9 beats of abberancy and few PVC.pt asymptomatic -: no CP/SOB/Palpitations/dizziness - Objective Resuscitation Status: Resuscitation Status DNR:Do Not Resuscitate MAR Reviewed: Yes Vital Signs & Weight: Vital Signs (12 hours) Temp Pulse Resp BP BP Pulse Ox 01/31/18 10:52 98.1 F 80 18 177/90 H 97 01/31/18 08:00 97.9 F 78 20 177/85 H 97 Weight Admit Weight 292 lb 15.909 oz Weight 290 lb I&O: 01/30/18 01/31/18 02/01/18 06:59 06:59 06:59 Intake Total 698 1040 960 Output Total 200 4100 Balance 498 -3060 960 Result Diagrams: 02/01/18 05:41 02/02/18 05:34 Additional Labs: Accuchecks 01/31/18 01/30/18 01/30/18 05:38 21:20 16:50 POC Glucose 122 H 156 H 180 H 01/30/18 05:41 POC Glucose 111 H Microbiology 01/29/18 21:10 Finger Bacterial Culture - Preliminary Methicillin resistant S.aureus 01/29/18 12:09 Venous blood - Right Arm Blood Culture - Preliminary Specimen has been received and culture in progress. No Growth to date. 01/29/18 12:04 Venous blood - Right Arm Blood Culture - Preliminary Coagulase Neg Staphylococcus Radiology Reviewed by me: Yes Phys Exam - Physical Examination Constitutional: NAD HEENT: PERRLA, moist MMs, sclera anicteric, oral pharynx no lesions Neck: no nodes, no JVD, supple, full ROM Respiratory: no wheezing, no rales, no rhonchi, clear to auscultation bilateral Cardiovascular: RRR, no significant murmur Gastrointestinal: soft, non-tender, no distention, positive bowel sounds Musculoskeletal: no edema LUE erythema,fading periphery.extreme tenderness to even superficial touch able to move left forearm off the bed.all fingers in bandages Neurological: non-focal, normal sensation, moves all 4 limbs Psychiatric: normal affect, A&O x 3 Dx/Plan (1) Arrhythmia Code(s): I49.9 - CARDIAC ARRHYTHMIA, UNSPECIFIED Status: Resolved (2) Cellulitis of left upper extremity Code(s): L03.114 - CELLULITIS OF LEFT UPPER LIMB Status: Acute Comment: Continue Rocephin and sliding scale Vancomycin with HD (3) Gangrene of finger of left hand Code(s): I96 - GANGRENE, NOT ELSEWHERE CLASSIFIED Status: Acute Comment: Consult Gen surgery for evaluation, WCT for local care, continue Vancomycin and Rocephin (4) Bacteremia, coagulase-negative staphylococcal Code(s): R78.81 - BACTEREMIA Status: Acute Comment: Potential contaminant however high risk for staph infection given hx, ischemia and open wounds to Left fingertips (5) Sepsis Code(s): A41.9 - SEPSIS, UNSPECIFIED ORGANISM Status: Suspected Qualifiers: Sepsis type: methicillin resistant Staphylococcus aureus Qualified Code(s) : A41.02 - Sepsis due to Methicillin resistant Staphylococcus aureus (6) Anemia of renal disease Code(s): D63.1 - ANEMIA IN CHRONIC KIDNEY DISEASE Status: Chronic (7) CAD (coronary artery disease) Code(s): I25.10 - ATHSCL HEART DISEASE OF [place] CORONARY ARTERY W/O ANG PCTRS Status: Chronic Qualifiers: Coronary Disease-Associated Artery/Lesion type: bypass graft [place] vs. transplanted heart: [place] heart Associated angina: without angina Qualified Code(s): I25.810 - Atherosclerosis of coronary artery bypass graft(s) without angina pectoris Comment: CABG 2017.on ASA,statin,BB (8) DM2 (diabetes mellitus, type 2) Status: Chronic Qualifiers: Diabetes mellitus halfway insulin use: with halfway use Diabetes mellitus complication status: with kidney complications Diabetes mellitus complication detail: with chronic kidney disease Chronic kidney disease stage : on chronic dialysis Qualified Code(s): E11.22 - Type 2 diabetes mellitus with diabetic chronic kidney disease; N18.6 - End stage renal disease; N18.6 - End stage renal disease; N18.6 - End stage renal disease; N18.6 - End stage renal disease; Z79.4 - buttermaker continuous churn (current) use of insulin; Z79.4 - buttermaker continuous churn ( current) use of insulin; Z79.4 - halfway (current) use of insulin; Z79.4 - halfway (current) use of insulin; Z99.2 - Dependence on renal dialysis; Z99.2 - Dependence on renal dialysis; Z99.2 - Dependence on renal dialysis; Z99.2 - Dependence on renal dialysis Comment: Continue Tresiba 50u sc HS, ISS (9) Dyslipidemia Code(s): E78.5 - HYPERLIPIDEMIA, UNSPECIFIED Status: Chronic (10) ESRD (end stage renal disease) on dialysis Code(s): N18.6 - END STAGE RENAL DISEASE; Z99.2 - DEPENDENCE ON RENAL DIALYSIS Status: Chronic Comment: HD per Renal service, completed maintenance HD 01/30 (11) Obesity (BMI 30-39.9) Code(s): E66.9 - OBESITY, UNSPECIFIED Status: Chronic (12) PVD (peripheral vascular disease) Code(s): I73.9 - PERIPHERAL VASCULAR DISEASE, UNSPECIFIED Status: Chronic Comment: Continue ASA 325mg daily (13) Secondary hyperparathyroidism of renal origin Code(s): N25.81 - SECONDARY HYPERPARATHYROIDISM OF RENAL ORIGIN Status: Chronic (14) Hyperkalemia, diminished renal excretion Code(s): E87.5 - HYPERKALEMIA Status: Chronic - Plan continue antibiotics, PT/OT, DVT proph w/SCDs No intervention per GS.h/o brachial art occlusion w grafting w re-occlusion -: empiric ABx. "finger Cx" +ve for MRSA.unclear how it was obtained.vanco -: will consult ID.may need angiogram of LUE w persistant severe pain -: will also consult cardiology for asymptomatic arrythmia as h/o severe CAD -: Troponin,mag checked stat and WNL.ECHO 07/27 WNL * . Monitor lytes,renal FX. HD per nephrology.daily labs.Potassium normalized w HD leucocytosis improved Review of Systems - Review of Systems Constitutional: weakness, malaise. negative: fever, chills, sweats, other ENT: negative: Ear Pain, Ear Discharge, Nose Pain, Nose Discharge, Nose Congestion, Mouth Pain, Mouth Swelling, Throat Pain, Throat Swelling, Other Respiratory: negative: Cough, Dry, Shortness of Breath, Hemoptysis, SOB with Excertion, Pleuritic Pain, Sputum, Wheezing Cardiovascular: negative: chest pain, palpitations, orthopnea, paroxysmal nocturnal dyspnea, edema, light headedness, other Gastrointestinal: negative: Nausea, Vomiting, Abdominal Pain, Diarrhea, Constipation, Melena, Hematochezia, Other Genitourinary: negative: Dysuria, Frequency, Incontinence, Hematuria, Retention , Other Musculoskeletal: Arm Pain, Hand Pain. negative: Neck Pain, Shoulder Pain, Back Pain, Leg Pain, Foot Pain, Other Skin: Rash - Medications/Allergies Allergies/Adverse Reactions: Allergies Allergy/AdvReac Type Severity Reaction Status Date / Time No Known Allergies Allergy Verified 07/15/17 02:05 Medications: Current Medications Acetaminophen (Tylenol) 1,000 mg PO Q6H PRN PRN Reason: Headache/Fever or Mild Pain Hydrocodone Bitart/Acetaminophen ([place] 5/325) 1 tab PO Q4HR PRN PRN Reason: Pain Last Admin: 01/30/18 21:00 Dose: 1 tab Aspirin (Aspirin) 325 mg PO DAILY [facility] Last Admin: 01/31/18 11:04 Dose: 325 mg Atorvastatin Calcium (Lipitor) 80 mg PO HS [facility] Last Admin: 01/30/18 20:59 Dose: 80 mg Calcium Acetate (Phoslo) 1,334 mg PO BID-[facility] Last Admin: 01/31/18 11:04 Dose: 1,334 mg Carvedilol (Coreg) 3.125 mg PO BID [facility] Last Admin: 01/31/18 11:05 Dose: 3.125 mg Cholecalciferol (Vitamin D3) 2,000 units PO DAILY [facility] Last Admin: 01/31/18 11:05 Dose: 2,000 units Clonidine (Catapres) 0.1 mg PO Q4H PRN PRN Reason: Systolic BP > 180 Dextrose/Water (Dextrose 50%) 25 gm SLOW IVP PRN PRN PRN Reason: Hypoglycemia Docusate Sodium (Colace) 100 mg PO DAILY PRN PRN Reason: Constipation Famotidine (Pepcid) 20 mg PO 2100 [facility] Last Admin: 01/30/18 20:59 Dose: 20 mg Glucagon (Glucagon) 1 mg IM PRN PRN PRN Reason: Hypoglycemia Heparin Sodium (Porcine) (Heparin) 5,000 units SC BID [facility] Last Admin: 01/31/18 11:06 Dose: 5,000 units Hydralazine HCl (Apresoline) 10 mg SLOW IVP Q4H PRN PRN Reason: Systolic BP > 180 Ceftriaxone Sodium 2 gm/ (Sodium Chloride) 100 mls @ 200 mls/hr IVPB 2100 [facility] Last Admin: 01/30/18 21:01 Dose: 100 mls Dextrose/Water (D5w) 1,000 mls @ 0 mls/hr IV .Q0M PRN; As Directed PRN Reason: Hypoglycemia Vancomycin HCl 1.25 gm/ Sodium (Chloride) 250 mls @ 166.667 mls/hr IVPB [facility] Vancomycin HCl 1 gm/ Device 200 mls @ 200 mls/hr IVPB [facility] Vancomycin HCl 750 mg/ Sodium (Chloride) 250 mls @ 250 mls/hr IVPB [facility] Vancomycin HCl 500 mg/ Sodium (Chloride) 100 mls @ 100 [facility]ls[facility] Insulin Human Lispro (Humalog) 0 units SC .MODERATE SLIDING SC PRN PRN Reason: Moderate Correctional Scale Last Admin: 01/30/18 18:26 Dose: 2 unit Insulin Human Lispro (Humalog) 0 units SC .BEDTIME SLIDING SC PRN PRN Reason: Bedtime Correctional Scale Lanthanum Carbonate (Fosrenol) 1,000 mg PO BID-[facility] Last Admin: 01/31/18 11:06 Dose: 1,000 mg Loratadine (Claritin) 10 mg PO DAILY [facility] Last Admin: 01/31/18 11:05 Dose: 10 mg Melatonin (Melatonin) 6 mg PO [facility] Last Admin: 01/30/18 21:01 Dose: Not Given Hold Vancomycin For (Level >20) 0 each FS .AT DIALYSIS [facility] Ondansetron HCl (Zofran Odt) 4 mg PO Q6H PRN PRN Reason: Nausea/Vomiting Ondansetron HCl (Zofran) 4 mg IVP Q6H PRN PRN Reason: Nausea/Vomiting [Tresiba Flextouch U (-100] 50 Unit)) 0 each SC [facility] Last Admin: 01/31/18 00:23 Dose: Not Given Patiromer Calcium Sorbitex [Veltassa] 8.4 Gm 1 each PO BID [facility] Last Admin: 01/31/18 11:07 Dose: 1 each Polyethylene Glycol (Miralax) 17 gm PO DAILY PRN PRN Reason: Constipation Risperidone (Risperidone) 0.25 mg PO [facility] Last Admin: 01/30/18 21:01 Dose: 0.25 mg Saccharomyces Boulardii (Florastor) 250 mg PO DAILY [facility] Last Admin: 01/31/18 11:05 Dose: 250 mg Vitamin B Complex/Vit C/Folic Acid (Nephro-Anel Tablet) 1 tab PO DAILY [facility] Last Admin: 01/31/18 11:05 Dose: 1 tab
--- NOTE | 2018-01-31 17:14 | CON ---
DATE OF CONSULTATION: 01/31/2018 REASON FOR CONSULTATION: Wide complex rhythm. PRIMARY GIN POLE OPERATOR: Dr. Cj Pace. HISTORY OF PRESENT ILLNESS: Mr. Tolbert is a pleasant 42-year-old white gentleman, who comes to the hospital for fever and arm pain. He was diagnosed with left arm cellulitis and was admitted for IV antibiotics. He was placed on telemetry and was found earlier today to have about 5-6 beats of nonsustained wide complex rhythm. So, Cardiology is being consulted. He does have a significant history of coronary artery disease. He underwent heart catheterization last year and eventually needed a coronary artery bypass grafting performed by Dr. Dominguez in August of last year. He has never followed up with Cardiology since. He denies any chest pain, tightness, pressure, no shortness of breath, lightheaded. No syncope or presyncope, PND, or orthopnea. PAST MEDICAL HISTORY: 1. End-stage renal disease, on hemodialysis Friday, Friday, Friday, by Dr. Pearce. 2. Left upper extremity paresis. 3. Peripheral vascular disease with ischemic left hand. 4. Hypertension. 5. Hyperlipidemia. 6. Type 2 diabetes. 7. Diabetic retinopathy. 8. Coronary artery disease as above. PAST SURGICAL HISTORY: 1. Amputation of 2 toes. 2. AV fistula placement. 3. Coronary artery bypass grafting x3 in 08/2017. 4. Aortic valve replacement. 5. Removal of bovine graft. 6. Removal of temporary tunneled hemodialysis catheters and brachial artery repair. OUTPATIENT MEDICATIONS: Include, 1. Aspirin 325 a day. 2. Lipitor 80 at bedtime. 3. PhosLo. 4. Coreg 3.125 mg b.i.d. 5. Zyrtec 10 mg a day. 6. Vitamin D3. 7. Docusate. 8. Folic acid. 9. Humalog. 10. [place]. 11. Tresiba. 12. Probiotic. 13. Melatonin. 14. Zofran. 15. Veltassa. 16. MiraLax. 17. Risperdal. ALLERGIES: No known drug allergies. FAMILY HISTORY: Noncontributory. SOCIAL HISTORY: Lives at the [facility] [place]. No alcohol, tobacco, or drugs. REVIEW OF SYSTEMS: A 12-point review of systems was done and is otherwise negative unless stated in history of present illness. PHYSICAL EXAMINATION: VITAL SIGNS: Temperature 98.1, pulse 80, respiratory rate 18, satting 97% on room air, blood pressure 177/90. GENERAL: Awake, alert, oriented x3, in no distress noted. HEENT: Normocephalic, atraumatic. NECK: Supple. LUNGS: Clear. CARDIOVASCULAR: S1, S2, no S3 or S4. No murmurs or rubs. ABDOMEN: Soft, positive bowel sounds. EXTREMITIES: No edema. Erythema around the left shoulder area of his cellulitis. SKIN: Warm and dry. LABORATORY WORK: Reviewed. CBC with a white count of 13, down to 9.8; hemoglobin 12.5; platelet count of 151. Chemistry was reviewed. Toxicology, vancomycin trough. Telemetry imaging was reviewed. ASSESSMENT AND PLAN: 1. Nonsustained wide complex rhythm. This could be nonsustained VT. He is not having any ischemic symptoms and the only therapy for this would be a beta jefry, which he is already on. Currently, he is DNR/DNI. He does not wish to have any invasive interventions done for the heart. At this point, we would continue conservative therapy with a beta jefry and continue IV antibiotics. Thank you for letting us participate in the care of your patient. We will sign off for now. Please call with any questions. MI
[2018-01-31] MEDS: cefTRIAXone\\ROCEPHIN 2 GM in Sodium Chloride 0.9% 100 ML IVPB SCH (21:23)
[2018-01-31] MEDS: risperiDONE 0.25 MG TAB PO SCH (21:24)
[2018-01-31] MEDS: Famotidine 20 MG TAB PO SCH (21:24)
[2018-01-31] MEDS: Atorvastatin Calcium 40 MG TAB PO SCH (21:24)
[2018-01-31] MEDS: HYDROcodone/Acetaminophen 5/325 mg Tablet PO PRN (21:24)
[2018-01-31] MEDS: Melatonin 3 MG TAB PO SCH (21:31)
[2018-02-01 06:32] LABS: #Basophils 0.1 thou/uL (0.0-0.2); #Eosinphils 0.1 thou/uL (0.0-0.7); #Lymphocytes 1.7 thou/uL (1.20-3.40); #Monocytes 1.1 thou/uL (0.11-0.59); #Neutrophils 5.9 thou/uL (1.40-6.50); %Basophils 1.2 % (0.0-1.0); %Eosinophils 1.2 % (0.0-10.0); %Lymphocytes 19.2 % (21.0-51.0); %Monocytes 12.6 % (0.0-10.0); %Neutrophils 65.7 % (42.0-75.0); Mean Corpuscular HGB CONC 31.6 g/dL (32.0-36.0); Mean Corpuscular Hemoglobin 30.2 pg (27.0-31.0); Mean Corpuscular Volume 95.5 fl (80.0-94.0); Platelet Count 199 thou/uL (130-400); RBC Distribution Width 15.3 % (11.5-14.5); Red Blood Cell (RBC) Count 4.31 mill/uL (4.70-6.10)
[2018-02-01 06:42] LABS: Anion Gap 24 mmol/L (10-20); BUN (Urea Nitrogen) 93 mg/dL (8.9-20.6); Calc. Creatinine Clearance 17 mL/min (70-130); Calcium 9.5 mg/dL (7.8-10.44); Carbon Dioxide 24 mmol/L (22-29); Chloride 97 mmol/L (98-107); Estimated GFR-MDRD 5; Glucose 110 mg/dL (70-105); Potassium 5.2 mmol/L (3.5-5.1); Sodium 140 mmol/L (136-145)
[2018-02-01] MEDS: Aspirin 325 MG TAB PO SCH (09:00)
[2018-02-01] MEDS: Folic Acid/Vit B Comp W-C PO SCH (09:00)
[2018-02-01] MEDS: Loratadine 10 MG TAB PO SCH (09:01)
[2018-02-01] MEDS: Carvedilol 3.125 MG TAB PO SCH ×2 (09:01→20:38)
[2018-02-01] MEDS: Calcium Acetate 667 MG CAP PO SCH ×2 (09:01→18:06)
[2018-02-01] MEDS: Saccharomyces boulardii 250 MG CAP PO SCH (09:02)
[2018-02-01] MEDS: Lanthanum Carbonate 500 mg Tablet PO SCH ×2 (09:06→18:07)
[2018-02-01] MEDS: Heparin 5,000 UNITS/ML VIAL SC SCH ×4 (09:13→20:15)
[2018-02-01] MEDS: cloNIDine 0.1 MG TAB PO PRN (11:52)
[2018-02-01] MEDS: Patiromer Calcium Sorbitex [Veltassa] 8.4 GM PO SCH ×2 (12:44→21:19)
[2018-02-01] MEDS ORDERED: ISOVUE-370 76%-LOCM 1 ML ONE (13:04)
--- NOTE | 2018-02-01 14:31 | PDOC.PN ---
- Subjective Encounter Start Date: 02/01/18 Encounter Start Time: 14:27 Subjective: feels well. still has severe pain w light touch to left arm -: able to work w Pt and sitting i chair after almost 1 year! - Objective Resuscitation Status: Resuscitation Status DNR:Do Not Resuscitate MAR Reviewed: Yes Vital Signs & Weight: Vital Signs (12 hours) Temp Pulse Pulse Resp BP BP BP 02/01/18 13:23 78 02/01/18 11:52 189/103 H 02/01/18 11:45 97.7 F 78 20 02/01/18 11:20 77 198/91 H 02/01/18 08:00 97.7 F 78 20 160/70 H 02/01/18 05:52 96.7 F L 78 18 BP BP Pulse Ox 02/01/18 13:23 126/77 02/01/18 11:52 02/01/18 11:45 189/103 H 99 02/01/18 11:20 02/01/18 08:00 97 02/01/18 05:52 163/75 H 97 Weight Admit Weight 292 lb 15.909 oz Weight 293 lb 11.2 oz I&O: 01/31/18 02/01/18 02/02/18 06:59 06:59 06:59 Intake Total 1040 2100 240 Output Total 4100 Balance -3060 2100 240 Result Diagrams: 02/01/18 05:41 02/02/18 05:34 Additional Labs: Accuchecks 01/31/18 01/31/18 21:04 16:37 POC Glucose 199 H 175 H Microbiology 01/29/18 21:10 Finger Bacterial Culture - Preliminary Methicillin resistant S.aureus 01/29/18 12:09 Venous blood - Right Arm Blood Culture - Preliminary NO GROWTH AT 48 HOURS 01/29/18 12:04 Venous blood - Right Arm Blood Culture - Preliminary Coagulase Neg Staphylococcus Phys Exam - Physical Examination Constitutional: NAD HEENT: PERRLA, moist MMs, sclera anicteric, oral pharynx no lesions Neck: no nodes, no JVD, supple, full ROM Respiratory: no wheezing, no rales, no rhonchi, clear to auscultation bilateral Cardiovascular: RRR, no significant murmur, no rub, gallop Gastrointestinal: soft, non-tender, no distention, positive bowel sounds Musculoskeletal: no edema, pulses present Neurological: non-focal, normal sensation LUE weakness and hyperesthesias Psychiatric: normal affect, A&O x 3 Skin: no rash Dx/Plan (1) Cellulitis of left upper extremity Code(s): L03.114 - CELLULITIS OF LEFT UPPER LIMB Status: Acute Comment: Continue Rocephin and sliding scale Vancomycin with HD (2) Gangrene of finger of left hand Code(s): I96 - GANGRENE, NOT ELSEWHERE CLASSIFIED Status: Acute Comment: Consult Gen surgery for evaluation, WCT for local care, continue Vancomycin and Rocephin (3) Sepsis Code(s): A41.9 - SEPSIS, UNSPECIFIED ORGANISM Status: Suspected Qualifiers: Sepsis type: methicillin resistant Staphylococcus aureus Qualified Code(s) : A41.02 - Sepsis due to Methicillin resistant Staphylococcus aureus (4) Bacteremia, coagulase-negative staphylococcal Code(s): R78.81 - BACTEREMIA Status: Acute Comment: Potential contaminant however high risk for staph infection given hx, ischemia and open wounds to Left fingertips (5) Anemia of renal disease Code(s): D63.1 - ANEMIA IN CHRONIC KIDNEY DISEASE Status: Chronic (6) CAD (coronary artery disease) Code(s): I25.10 - ATHSCL HEART DISEASE OF [place] CORONARY ARTERY W/O ANG PCTRS Status: Chronic Qualifiers: Coronary Disease-Associated Artery/Lesion type: bypass graft [place] vs. transplanted heart: [place] heart Associated angina: without angina Qualified Code(s): I25.810 - Atherosclerosis of coronary artery bypass graft(s) without angina pectoris Comment: CABG 2017.on ASA,statin,BB (7) DM2 (diabetes mellitus, type 2) Status: Chronic Qualifiers: Diabetes mellitus intermediate manager insulin use: with [place] [facility] use Diabetes mellitus complication status: with kidney complications Diabetes mellitus complication detail: with chronic kidney disease Chronic kidney disease stage : on chronic dialysis Qualified Code(s): E11.22 - Type 2 diabetes mellitus with diabetic chronic kidney disease; N18.6 - End stage renal disease; N18.6 - End stage renal disease; N18.6 - End stage renal disease; N18.6 - End stage renal disease; Z79.4 - correction (current) use of insulin; Z79.4 - [place] ( current) use of insulin; Z79.4 - correction (current) use of insulin; Z79.4 - correction (current) use of insulin; Z99.2 - Dependence on renal dialysis; Z99.2 - Dependence on renal dialysis; Z99.2 - Dependence on renal dialysis; Z99.2 - Dependence on renal dialysis Comment: Continue Tresiba 50u sc HS, ISS (8) Dyslipidemia Code(s): E78.5 - HYPERLIPIDEMIA, UNSPECIFIED Status: Chronic (9) ESRD (end stage renal disease) on dialysis Code(s): N18.6 - END STAGE RENAL DISEASE; Z99.2 - DEPENDENCE ON RENAL DIALYSIS Status: Chronic Comment: HD per Renal service, completed maintenance HD 01/30 (10) Obesity (BMI 30-39.9) Code(s): E66.9 - OBESITY, UNSPECIFIED Status: Chronic (11) PVD (peripheral vascular disease) Code(s): I73.9 - PERIPHERAL VASCULAR DISEASE, UNSPECIFIED Status: Chronic Comment: Continue ASA 325mg daily (12) Secondary hyperparathyroidism of renal origin Code(s): N25.81 - SECONDARY HYPERPARATHYROIDISM OF RENAL ORIGIN Status: Chronic (13) Arrhythmia Code(s): I49.9 - CARDIAC ARRHYTHMIA, UNSPECIFIED Status: Resolved (14) Muscular deconditioning Code(s): R29.898 - OTH SYMPTOMS AND SIGNS INVOLVING THE MUSCULOSKELETAL SYSTEM Status: Acute - Plan continue antibiotics, PT/OT, out of bed/ambulate, DVT proph w/SCDs appreciate cradiology Input.no recurrance of arrythmia.cont BB -: HD per nephrology.daily labs -: cont vancomycin /Rocephin for now. Blood Cx likley contaminanat. -: Finger Cx shows MRSA ? significance.ID consulted -: will arrange rehab at his [place].Pt was walking prior to falling sick * .Cellulitis improving.No surgical intervention per Review of Systems - Review of Systems Constitutional: negative: fever, chills, sweats, weakness, malaise, other Respiratory: negative: Cough, Dry, Shortness of Breath, Hemoptysis, SOB with Excertion, Pleuritic Pain, Sputum, Wheezing Cardiovascular: negative: chest pain, palpitations, orthopnea, paroxysmal nocturnal dyspnea, edema, light headedness, other Gastrointestinal: negative: Nausea, Vomiting, Abdominal Pain, Diarrhea, Constipation, Melena, Hematochezia, Other Genitourinary: negative: Dysuria, Frequency, Incontinence, Hematuria, Retention , Other Musculoskeletal: negative: Neck Pain, Shoulder Pain, Arm Pain, Back Pain, Hand Pain, Leg Pain, Foot Pain, Other Skin: negative: Rash, Lesions, Km, Bruising, Other Neurological: Weakness (Left UE). negative: Numbness, Incoordination, Change in Speech, Confusion, Seizures, Other - Medications/Allergies Allergies/Adverse Reactions: Allergies Allergy/AdvReac Type Severity Reaction Status Date / Time No Known Allergies Allergy Verified 07/15/17 02:05 Medications: Current Medications Acetaminophen (Tylenol) 1,000 mg PO Q6H PRN PRN Reason: Headache/Fever or Mild Pain Hydrocodone Bitart/Acetaminophen ([place] 5/325) 1 tab PO Q4HR PRN PRN Reason: Pain Last Admin: 01/31/18 21:24 Dose: 1 tab Aspirin (Aspirin) 325 mg PO DAILY [facility] Last Admin: 02/01/18 09:00 Dose: 325 mg Atorvastatin Calcium (Lipitor) 80 mg PO HS [facility] Last Admin: 01/31/18 21:24 Dose: 80 mg Calcium Acetate (Phoslo) 1,334 mg PO BID-[facility] Last Admin: 02/01/18 09:01 Dose: 1,334 mg Carvedilol (Coreg) 3.125 mg PO BID [facility] Last Admin: 02/01/18 09:01 Dose: 3.125 mg Cholecalciferol (Vitamin D3) 2,000 units PO DAILY [facility] Last Admin: 02/01/18 09:02 Dose: 2,000 units Clonidine (Catapres) 0.1 mg PO Q4H PRN PRN Reason: Systolic BP > 180 Last Admin: 02/01/18 11:52 Dose: 0.1 mg Dextrose/Water (Dextrose 50%) 25 gm SLOW IVP PRN PRN PRN Reason: Hypoglycemia Docusate Sodium (Colace) 100 mg PO DAILY PRN PRN Reason: Constipation Famotidine (Pepcid) 20 mg PO 2100 [facility] Last Admin: 01/31/18 21:24 Dose: 20 mg Glucagon (Glucagon) 1 mg IM PRN PRN PRN Reason: Hypoglycemia Heparin Sodium (Porcine) (Heparin) 5,000 units SC BID [facility] Last Admin: 02/01/18 09:13 Dose: 5,000 units Hydralazine HCl (Apresoline) 10 mg SLOW IVP Q4H PRN PRN Reason: Systolic BP > 180 Ceftriaxone Sodium 2 gm/ (Sodium Chloride) 100 mls @ 200 mls/hr IVPB 2100 [facility] Last Admin: 01/31/18 21:23 Dose: 100 mls Dextrose/Water (D5w) 1,000 mls @ 0 mls/hr IV .Q0M PRN; As Directed PRN Reason: Hypoglycemia Vancomycin HCl 1.25 gm/ Sodium (Chloride) 250 mls @ 166.667 mls/hr IVPB [facility] Vancomycin HCl 1 gm/ Device 200 mls @ 200 mls/hr [facility] Vancomycin HCl 750 mg/ Sodium (Chloride) 250 mls @ 250 mls/hr IVPB [facility] Vancomycin HCl 500 mg/ Sodium (Chloride) 100 mls @ 100 mls/hr IVPB [facility] Insulin Human Lispro (Humalog) 0 units SC .MODERATE SLIDING SC PRN PRN Reason: Moderate Correctional Scale Last Admin: 01/30/18 18:26 Dose: 2 unit Insulin Human Lispro (Humalog) 0 units SC .BEDTIME SLIDING SC PRN PRN Reason: Bedtime Correctional Scale Lanthanum Carbonate (Fosrenol) 1,000 mg PO BID-[facility] Last Admin: 02/01/18 09:06 Dose: 1,000 mg Loratadine (Claritin) 10 mg PO DAILY [facility] Last Admin: 02/01/18 09:01 Dose: 10 mg Melatonin (Melatonin) 6 mg PO [facility] Last Admin: 01/31/18 21:31 Dose: Not Given Hold Vancomycin For (Level >20) 0 each FS .AT DIALYSIS [facility] Ondansetron HCl (Zofran Odt) 4 mg PO Q6H PRN PRN Reason: Nausea/Vomiting Ondansetron HCl (Zofran) 4 mg IVP Q6H PRN PRN Reason: Nausea/Vomiting [Tresiba Flextouch U (-100] 50 Unit)) 0 each SC [facility] Last Admin: 01/31/18 21:26 Dose: 1 each Patiromer Calcium Sorbitex [Veltassa] 8.4 Gm 1 each PO BID [facility] Last Admin: 02/01/18 12:44 Dose: Not Given Polyethylene Glycol (Miralax) 17 gm PO DAILY PRN PRN Reason: Constipation Risperidone (Risperidone) 0.25 mg PO [facility] Last Admin: 01/31/18 21:24 Dose: 0.25 mg Saccharomyces Boulardii (Florastor) 250 mg PO DAILY [facility] Last Admin: 02/01/18 09:02 Dose: 250 mg Vitamin B Complex/Vit C/Folic Acid (Nephro-Anel Tablet) 1 tab PO DAILY [facility] Last Admin: 02/01/18 09:00 Dose: 1 tab
--- NOTE | 2018-02-01 18:46 | CT ---
CT LEFT SHOULDER WITH CONTRAST: Date: 02/01/18 HISTORY: Prior infection. Swelling and redness. Prior AV graft infection. COMPARISON: None. FINDINGS: The evaluation is limited due to patient unable to be centered within the bore of the scanner and pat ient unable to raise arm above head. Only the left shoulder is evaluation on this examination and the proximal humerus. Nothing below the mid shaft of humerus is scanned. Bones: There is cortical tunneling throughout the humeral proximal metaphysis and diaphysis. No fracture. No linear periosteal new bone formation. No skin ulceration is seen extending into the bone. Muscles: Muscles appear to be intact. No significant swelling. There are multiple axillary surgical clips. There are mildly prominent trochlear lymph nodes. There is soft tissue edema of the level of the mid humeral shaft. IMPRESSION: 1. Limited examination due to patient being unable to lift arm above head and the left arm being out of the field of view due to habitus. Of what is visualized of the shoulder and upper arm, there is m ild soft tissue swelling, as well as skin thickening, suggesting cellulitis. 2. Cortical tunneling of the humeral diaphysis can be seen with end-stage renal disease. 3. Incidentally noted is opacity within the left upper lobe, which may reflect atelectasis or infect ion. POS: HOME
--- NOTE | 2018-02-01 20:06 | CON ---
DATE OF CONSULTATION: 02/01/2018 REASON FOR CONSULTATION: Inflammatory changes, left arm. HISTORY OF PRESENT ILLNESS: A 42-year-old patient known to me from prior visits, I last saw him in [facility] last year when he presented with a history of longstanding type 1 diabetes mellitus, blindne ss, end-stage renal disease on hemodialysis through a tunneled catheter. He had required replacement of the catheter earlier that year and protracted IV vancomycin through a sliding scale. Then, he aranda d an AV graft bleeding which required placement of a [place] fistula. Subsequently, developed ischemi c heart disease symptoms and underwent replacement of a heart valve as well as coronary artery bypass graft surgery which was done elsewhere. He developed tachycardia and there was a oozing noted from the left axillary wound, it was observed for that and then developed fever and 2 sets of blood cultur es yielded a gram negative qiana identified as Pseudomonas aeruginosa with a broad [facility]. The possibilities for the origin of the organism included dialysis catheter, the left upper extr emity surgical site. An echocardiogram was also limited technical quality. The patient had a hemato ma evacuated from the left axillary region. The patient was discharged on levofloxacin for 15 more d ays after discharge. The left internal jugular cuffed tunneled dialysis catheter was removed. In , patient had replacement of the right IJ cuffed tunneled dialysis catheter. Of note, patient h ad had a previous proximal left upper arm infected porcine looped graft which had been placed in [facility]. This was associated with methicillin-resistant Staphylococcus aureus from both blood cultures an d the axillary site. He also had Proteus species from the axilla and anaerobic cocci. At this time, he presents with fairly rapid onset of left upper extremity arm redness, swelling, pain, and fever w ith difficulty to bend at the elbow. No headaches. No sore throat, odynophagia, or dysphagia. Mild dyspnea, no chest pain, no abdominal pain, no diarrhea, no genitourinary symptoms, no joint symptoms . Patient has chronic ischemia of the left hand with loss of the nails and ulcerations at the tips. 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 Type 1 diabetes mellitus, end-stage renal disease on hemodialysis as above. PAST SURGICAL HISTORY: Amputations of toes in right and left feet, AV fistula placement for hemodial ysis, which is functional, coronary artery bypass graft surgery and aortic valve replacement, placeme nt of AV graft left upper extremity in [facility], which was removed because of infection by MRSA, Proteu s and anaerobic cocci. MEDICATIONS: At home, aspirin, Lipitor, PhosLo, Coreg, Zyrtec, vitamin D, docusate, folic acid, insu lamar, White, Tresiba FlexTouch, probiotic, melatonin, Zofran, Veltassa, , Risperdal. SOCIAL HISTORY: [facility] resident, never a smoker. FAMILY HISTORY: Noncontributory. ALLERGIES: NONE. CURRENT MEDICATIONS: Tylenol, White, aspirin, Lipitor, PhosLo, Coreg, ceftriaxone, clonidine, Catapr es, dextrose, docusate, glucagon, heparin, insulin, Fosrenol, Claritin, melatonin, vancomycin sliding scale, saccharomyces. PHYSICAL EXAMINATION: VITAL SIGNS: T-max 100.2, now 97.7, blood pressure 120/77, pulse 78, respirations 20, O2 sat 99%, ch ronically ill appearing, but in no distress. SKIN: Shows the areas of onychodystrophy and onycholysis in the left upper extremity with a little b it of ulceration and the extensive area of erythema left arm close to the elbow all the way to the ax illary region, kind of salmon color, with some induration and some aspects and quite tender to palpat ion. The patient has no lymphadenopathy, degree of alopecia. HEENT: Ocular movements are conjugate. Sclerae white. Oral cavity with numerous missing teeth. NECK: Supple. LUNGS: Symmetric. Clear breath sounds. HEART: S1, S2, regular rate. No S3 or S4. ABDOMEN: Soft, nondistended, nontender. No ascites. No bladder distention. : No genital abnormalities. The patient has a left BKA. EXTREMITIES: He moves all extremities equally. Plantar responses are flexor. Pulses are diminished in dorsalis pedis left side. Popliteals are 1+. NEUROLOGIC: His cognitive function appears to be intact. He recognized me. LABORATORY DATA: White cell count is down from 13.5-9.0 hemoglobin 13 and 13, platelets stable at 19 9. Differential with improvement in the neutrophil percentage from 83-65, and sodium 140, creatinine 10.76. Liver profile normal. Albumin 3.9, globulin 3.5. Vancomycin trough 10.6. One set of blood cultures with coagulase negative Staphylococcus, finger culture with methicillin-resistant Staphyloc occus aureus. All the venous blood culture negative thus far. IMAGING STUDIES: See any imaging studies ordered. ASSESSMENT: 1. End-stage renal disease secondary to type 1 diabetes mellitus. 2. Blindness. 3. Dialysis through an AV fistula, complications related to the left upper extremity prior AV graft, which had been placed in [facility] with a polymicrobial infection which MRSA was the predominant organi sm. 4. New-onset of circumferential erythema with tenderness and areas of induration, left arm. DISCUSSION: Differential diagnosis includes cellulitis versus a deeper process associated with a suki or surgical procedure to deal with the infection in the left axilla, left arm noted above. Continue current antimicrobials and check imaging study of the left upper extremity, probably a CT with contra st next dialysis session. Thus far, there is no evidence of bacteremia, but we will continue monitor ing.
[2018-02-01] MEDS: Atorvastatin Calcium 40 MG TAB PO SCH (20:14)
[2018-02-01] MEDS: cefTRIAXone\\ROCEPHIN 2 GM in Sodium Chloride 0.9% 100 ML IVPB SCH (20:14)
[2018-02-01] MEDS: Famotidine 20 MG TAB PO SCH (20:15)
[2018-02-01] MEDS: Melatonin 3 MG TAB PO SCH (20:15)
[2018-02-01] MEDS: risperiDONE 0.25 MG TAB PO SCH (20:16)
--- NOTE | 2018-02-01 20:50 | PRG ---
DATE OF SERVICE: 02/01/2018 SUBJECTIVE: Patient was seen and examined at bedside and overnight events noted. Patient denies any shortness of breath or chest pain or palpitation. No history of nausea or vomitin g or diarrhea or fever or chills or cramps. OBJECTIVE: GENERAL: This is an obese male, in no acute distress VITAL SIGNS: Temperature 97.7, pulse 78, respiratory rate , blood pressure 189/103. HEENT: Atraumatic, normocephalic, Oral mucosa is moist. NECK: Supple. CARDIOVASCULAR: S1S2 heard, Rate and rhythm regular. RESPIRATORY: Clear to auscultation. GASTROINTESTINAL: Abdomen is soft. MUSCULOSKELETAL: No tenderness, No edema. DERMATOLOGIC: No skin rash. NEUROLOGIC: Alert and awake and oriented X3, No focal neurologic deficits. Moving all the extremiti es. PSYCHIATRIC: Mood and affect normal. LABORATORY DATA: Potassium is 5.2, BUN is 93, creatinine is 7.7. ASSESSMENT AND PLAN: 1. End-stage renal disease, continue on hemodialysis Friday, Friday, and Friday. 2. Hyperkalemia. Limit potassium in the diet, we will have a renal diet. 3. Edema, controlled. 4. Hypertension. 5. Anemia. 6. Obesity. 7. Start renal diet. Continue dialysis Friday, Friday, and Friday. Continue antibiotics.
[2018-02-02 06:12] LABS: Anion Gap 25 mmol/L (10-20); BUN (Urea Nitrogen) 111 mg/dL (8.9-20.6); Calc. Creatinine Clearance 14 mL/min (70-130); Carbon Dioxide 21 mmol/L (22-29); Chloride 96 mmol/L (98-107); Estimated GFR-MDRD 4; Glucose 75 mg/dL (70-105); Potassium 5.9 mmol/L (3.5-5.1); Sodium 136 mmol/L (136-145)
[2018-02-02 08:38] LABS: Vancomycin, Trough 15.7 ug/mL
[2018-02-02] MEDS ORDERED: Carvedilol 3.125 MG TAB PO SCH (09:45)
[2018-02-02] MEDS ORDERED: Lisinopril 5 MG TAB PO SCH (09:45)
[2018-02-02] MEDS: Vancomycin HCl 500 MG in Sodium Chloride 0.9% 100 ML IVPB SCH ×3 (09:47)
--- NOTE | 2018-02-02 11:41 | PRG ---
DATE OF SERVICE: 02/02/2018 SUBJECTIVE: This is a 42-year-old gentleman being seen for end-stage renal disease. Patient is seen on dialysis. Denies any nausea, vomiting, or chest pain. PHYSICAL EXAMINATION: GENERAL: Patient is awake, alert. VITAL SIGNS: Afebrile, pulse 75, breathing 16, blood pressure 151/74. HEAD/NECK: Normocephalic. Atraumatic. EYES: EOMI. No deformity. EARS: Clear. No ulcers. NOSE: Intact. No lesions. MOUTH: Clear. No discharge. THROAT: Clear. No exudate. LUNGS: Clear. No crackles. CARDIAC: S1, S2. No rub. ABDOMEN: Benign. BS+. GENITALIA/RECTUM: Mei absent. BACK/EXTREMITIES: Edema 0+ Ulcer- NEUROLOGICAL: Alert and motor intact. SKIN: Rash- Bruise- LYMPHATICS: Edema- Ulcer- LABORATORY DATA: Show hemoglobin 13. ASSESSMENT AND RECOMMENDATIONS: 1. Stage 6 chronic kidney disease. We will plan hemodialysis. 2. Hypertension, stable. 3. Anemia, stable. 4. Medications based on glomerular filtration rate are appropriate.
[2018-02-02] MEDS: Saccharomyces boulardii 250 MG CAP PO SCH (13:54)
[2018-02-02] MEDS: Aspirin 325 MG TAB PO SCH (13:55)
[2018-02-02] MEDS: Loratadine 10 MG TAB PO SCH (13:55)
[2018-02-02] MEDS: Folic Acid/Vit B Comp W-C PO SCH (13:58)
[2018-02-02] MEDS: Carvedilol 3.125 MG TAB PO SCH (14:03)
[2018-02-02] MEDS: Calcium Acetate 667 MG CAP PO SCH ×2 (14:04→16:43)
[2018-02-02] MEDS: Lanthanum Carbonate 500 mg Tablet PO SCH ×2 (14:04→16:43)
[2018-02-02] MEDS: Heparin 5,000 UNITS/ML VIAL SC SCH ×4 (14:04→20:38)
[2018-02-02] MEDS: Patiromer Calcium Sorbitex [Veltassa] 8.4 GM PO SCH ×2 (14:15→20:45)
[2018-02-02] MEDS ORDERED: guaiFENesin ER 600 MG TAB PO SCH ×2 (14:24→14:30)
--- NOTE | 2018-02-02 14:24 | PDOC.PN ---
- Subjective Encounter Start Date: 02/02/18 Encounter Start Time: 14:22 Subjective: seen during dialysis. feels weak and tired -: denies any new symptoms but left arm pain persists - Objective Resuscitation Status: Resuscitation Status DNR:Do Not Resuscitate MAR Reviewed: Yes Vital Signs & Weight: Vital Signs (12 hours) Temp Pulse Resp BP BP Pulse Ox 02/02/18 13:59 79 02/02/18 12:16 98.4 F 79 16 155/85 H 98 02/02/18 09:50 97.7 F 76 18 97 02/02/18 06:51 96.6 F L 75 16 151/84 H 97 02/02/18 04:00 97.7 F 76 18 170/76 H 95 Weight Admit Weight 292 lb 15.909 oz Weight 293 lb 11.2 oz I&O: 02/01/18 02/02/18 02/03/18 06:59 06:59 06:59 Intake Total 2100 840 600 Output Total 50 Balance 2100 790 600 Result Diagrams: 02/01/18 05:41 02/03/18 05:07 Additional Labs: Accuchecks 02/01/18 02/01/18 02/01/18 16:31 11:17 05:29 POC Glucose 99 110 103 Microbiology 01/29/18 21:10 Finger Bacterial Culture - Final Methicillin resistant S.aureus 01/29/18 12:04 Venous blood - Right Arm Blood Culture - Final Coagulase Neg Staphylococcus 01/29/18 12:09 Venous blood - Right Arm Blood Culture - Preliminary NO GROWTH AT 48 HOURS Phys Exam - Physical Examination Constitutional: NAD HEENT: PERRLA, moist MMs, sclera anicteric, oral pharynx no lesions Neck: no nodes, no JVD, supple, full ROM Respiratory: no wheezing, clear to auscultation bilateral Cardiovascular: RRR, no significant murmur Gastrointestinal: soft, non-tender, no distention, positive bowel sounds Musculoskeletal: no edema, pulses present L arm erythema slightly better,hyperesthesia Neurological: non-focal, normal sensation LUE paresis Psychiatric: normal affect, A&O x 3 Skin: no rash Dx/Plan (1) Cellulitis of left upper extremity Code(s): L03.114 - CELLULITIS OF LEFT UPPER LIMB Status: Acute Comment: Continue Rocephin and sliding scale Vancomycin with HD (2) Gangrene of finger of left hand Code(s): I96 - GANGRENE, NOT ELSEWHERE CLASSIFIED Status: Acute Comment: Consult Gen surgery for evaluation, WCT for local care, continue Vancomycin and Rocephin (3) Sepsis Code(s): A41.9 - SEPSIS, UNSPECIFIED ORGANISM Status: Suspected Qualifiers: Sepsis type: methicillin resistant Staphylococcus aureus Qualified Code(s) : A41.02 - Sepsis due to Methicillin resistant Staphylococcus aureus (4) Bacteremia, coagulase-negative staphylococcal Code(s): R78.81 - BACTEREMIA Status: Acute Comment: Potential contaminant however high risk for staph infection given hx, ischemia and open wounds to Left fingertips (5) Anemia of renal disease Code(s): D63.1 - ANEMIA IN CHRONIC KIDNEY DISEASE Status: Chronic (6) CAD (coronary artery disease) Code(s): I25.10 - ATHSCL HEART DISEASE OF [place] CORONARY ARTERY W/O ANG PCTRS Status: Chronic Qualifiers: Coronary Disease-Associated Artery/Lesion type: bypass graft [place] vs. transplanted heart: [place] heart Associated angina: without angina Qualified Code(s): I25.810 - Atherosclerosis of coronary artery bypass graft(s) without angina pectoris Comment: CABG 2017.on ASA,statin,BB (7) DM2 (diabetes mellitus, type 2) Status: Chronic Qualifiers: Diabetes mellitus correction insulin use: with correction use Diabetes mellitus complication status: with kidney complications Diabetes mellitus complication detail: with chronic kidney disease Chronic kidney disease stage : on chronic dialysis Qualified Code(s): E11.22 - Type 2 diabetes mellitus with diabetic chronic kidney disease; N18.6 - End stage renal disease; N18.6 - End stage renal disease; N18.6 - End stage renal disease; N18.6 - End stage renal disease; Z79.4 - penitentiary (current) use of insulin; Z79.4 - penitentiary ( current) use of insulin; Z79.4 - penitentiary (current) use of insulin; Z79.4 - perinatal coordinator (current) use of insulin; Z99.2 - Dependence on renal dialysis; Z99.2 - Dependence on renal dialysis; Z99.2 - Dependence on renal dialysis; Z99.2 - Dependence on renal dialysis Comment: Continue Tresiba 50u sc HS, ISS (8) Dyslipidemia Code(s): E78.5 - HYPERLIPIDEMIA, UNSPECIFIED Status: Chronic (9) ESRD (end stage renal disease) on dialysis Code(s): N18.6 - END STAGE RENAL DISEASE; Z99.2 - DEPENDENCE ON RENAL DIALYSIS Status: Chronic Comment: HD per Renal service, completed maintenance HD 01/30 (10) Obesity (BMI 30-39.9) Code(s): E66.9 - OBESITY, UNSPECIFIED Status: Chronic (11) PVD (peripheral vascular disease) Code(s): I73.9 - PERIPHERAL VASCULAR DISEASE, UNSPECIFIED Status: Chronic Comment: Continue ASA 325mg daily (12) Secondary hyperparathyroidism of renal origin Code(s): N25.81 - SECONDARY HYPERPARATHYROIDISM OF RENAL ORIGIN Status: Chronic (13) Arrhythmia Code(s): I49.9 - CARDIAC ARRHYTHMIA, UNSPECIFIED Status: Resolved (14) Muscular deconditioning Code(s): R29.898 - OTH SYMPTOMS AND SIGNS INVOLVING THE MUSCULOSKELETAL SYSTEM Status: Acute - Plan PT/OT, social service technician, incentive spirometry, out of bed/ambulate, DVT proph w/ SCDs HD per nephrology.cardiac status stable. cont meds as below -: Q about final ABx choice.CT arm inconclusive -: Rafael defer to . Pt with complicated history -: Add rehab w his NH stay.Pt need extensive rehab -: BP still high.will add JOSE RAMON-I given ESRD also.AM labs * . Review of Systems - Review of Systems Constitutional: weakness, malaise. negative: fever, chills, sweats, other Eyes: negative: Pain, Vision Change, Conjunctivae Inflammation, Eyelid Inflammation, Redness, Other ENT: negative: Ear Pain, Ear Discharge, Nose Pain, Nose Discharge, Nose Congestion, Mouth Pain, Mouth Swelling, Throat Pain, Throat Swelling, Other Respiratory: negative: Cough, Dry, Shortness of Breath, Hemoptysis, SOB with Excertion, Pleuritic Pain, Sputum, Wheezing Cardiovascular: negative: chest pain, palpitations, orthopnea, paroxysmal nocturnal dyspnea, edema, light headedness, other Gastrointestinal: negative: Nausea, Vomiting, Abdominal Pain, Diarrhea, Constipation, Melena, Hematochezia, Other Genitourinary: negative: Dysuria, Frequency, Incontinence, Hematuria, Retention , Other Musculoskeletal: Arm Pain, Hand Pain. negative: Neck Pain, Shoulder Pain, Back Pain, Leg Pain, Foot Pain, Other Skin: negative: Rash, Lesions, Km, Bruising, Other Neurological: negative: Weakness, Numbness, Incoordination, Change in Speech, Confusion, Seizures, Other - Medications/Allergies Allergies/Adverse Reactions: Allergies Allergy/AdvReac Type Severity Reaction Status Date / Time No Known Allergies Allergy Verified 07/15/17 02:05 Medications: Current Medications Acetaminophen (Tylenol) 1,000 mg PO Q6H PRN PRN Reason: Headache/Fever or Mild Pain Hydrocodone Bitart/Acetaminophen (Cantril 5/325) 1 tab PO Q4HR PRN PRN Reason: Pain Last Admin: 01/31/18 21:24 Dose: 1 tab Aspirin (Aspirin) 325 mg PO DAILY [facility] Last Admin: 02/02/18 13:55 Dose: 325 mg Atorvastatin Calcium (Lipitor) 80 mg PO HS [facility] Last Admin: 02/01/18 20:14 Dose: 80 mg Calcium Acetate (Phoslo) 1,334 mg PO BID-[facility] Last Admin: 02/02/18 14:04 Dose: Not Given Carvedilol (Coreg) 6.25 mg PO BID [facility] Cholecalciferol (Vitamin D3) 2,000 units PO DAILY [facility] Last Admin: 02/02/18 13:54 Dose: 2,000 units Clonidine (Catapres) 0.1 mg PO Q4H PRN PRN Reason: Systolic BP > 180 Last Admin: 02/01/18 11:52 Dose: 0.1 mg Dextrose/Water (Dextrose 50%) 25 gm SLOW IVP PRN PRN PRN Reason: Hypoglycemia Docusate Sodium (Colace) 100 mg PO DAILY PRN PRN Reason: Constipation Famotidine (Pepcid) 20 mg PO 2100 [facility] Last Admin: 02/01/18 20:15 Dose: 20 mg Glucagon (Glucagon) 1 mg IM PRN PRN PRN Reason: Hypoglycemia Heparin Sodium (Porcine) (Heparin) 5,000 units SC BID [facility] Last Admin: 02/02/18 14:04 Dose: Not Given Hydralazine HCl (Apresoline) 10 mg SLOW IVP Q4H PRN PRN Reason: Systolic BP > 180 Ceftriaxone Sodium 2 gm/ (Sodium Chloride) 100 mls @ 200 mls/hr IVPB 2100 [facility] Last Admin: 02/01/18 20:14 Dose: 100 mls Dextrose/Water (D5w) 1,000 mls @ 0 mls/hr IV .Q0M PRN; As Directed PRN Reason: Hypoglycemia Vancomycin HCl 1.25 gm/ Sodium (Chloride) 250 mls @ 166.667 mls/hr IVPB WILLCALL [facility] Vancomycin HCl 1 gm/ Device 200 mls @ 200 mls/hr IVPB [facility] Vancomycin HCl 750 mg/ Sodium (Chloride) 250 mls @ 250 mls/hr IVPB [facility] Vancomycin HCl 500 mg/ Sodium (Chloride) 100 mls @ 100 mls/hr IVPB [facility] Last Admin: 02/02/18 09:47 Dose: 100 mls Insulin Human Lispro (Humalog) 0 units SC .MODERATE SLIDING SC PRN PRN Reason: Moderate Correctional Scale Last Admin: 01/30/18 18:26 Dose: 2 unit Insulin Human Lispro (Humalog) 0 units SC .BEDTIME SLIDING SC PRN PRN Reason: Bedtime Correctional Scale Lanthanum Carbonate (Fosrenol) 1,000 mg PO BID-[facility] Last Admin: 02/02/18 14:04 Dose: Not Given Lisinopril (Zestril) 5 mg PO DAILY [facility] Loratadine (Claritin) 10 mg PO DAILY [facility] Last Admin: 02/02/18 13:55 Dose: 10 mg Melatonin (Melatonin) 6 mg PO [facility] Last Admin: 02/01/18 20:15 Dose: Not Given Hold Vancomycin For (Level >20) 0 each FS .AT DIALYSIS [facility] Ondansetron HCl (Zofran Odt) 4 mg PO Q6H PRN PRN Reason: Nausea/Vomiting Ondansetron HCl (Zofran) 4 mg IVP Q6H PRN PRN Reason: Nausea/Vomiting [Tresiba Flextouch U (-100] 50 Unit)) 0 each SC [facility] Last Admin: 02/01/18 21:49 Dose: 50 each Patiromer Calcium Sorbitex [Veltassa] 8.4 Gm 1 each PO BID [facility] Last Admin: 02/02/18 14:15 Dose: Not Given Polyethylene Glycol (Miralax) 17 gm PO DAILY PRN PRN Reason: Constipation Risperidone (Risperidone) 0.25 mg PO [facility] Last Admin: 02/01/18 20:16 Dose: 0.25 mg Saccharomyces Boulardii (Florastor) 250 mg PO DAILY [facility] Last Admin: 02/02/18 13:54 Dose: 250 mg Vitamin B Complex/Vit C/Folic Acid (Nephro-Anel Tablet) 1 tab PO DAILY [facility] Last Admin: 02/02/18 13:58 Dose: 1 tab
[2018-02-02] MEDS: cefTRIAXone\\ROCEPHIN 2 GM in Sodium Chloride 0.9% 100 ML IVPB SCH (20:37)
[2018-02-02] MEDS: Atorvastatin Calcium 40 MG TAB PO SCH (20:41)
[2018-02-02] MEDS: guaiFENesin ER 600 MG TAB PO SCH (20:41)
[2018-02-02] MEDS: Famotidine 20 MG TAB PO SCH (20:42)
[2018-02-02] MEDS: risperiDONE 0.25 MG TAB PO SCH (20:42)
[2018-02-02] MEDS: Carvedilol 6.25 MG TAB PO SCH (20:44)
[2018-02-02] MEDS: Melatonin 3 MG TAB PO SCH (20:45)
[2018-02-03 05:35] LABS: Anion Gap 17 mmol/L (10-20); BUN (Urea Nitrogen) 66 mg/dL (8.9-20.6); Calc. Creatinine Clearance 19 mL/min (70-130); Calcium 8.9 mg/dL (7.8-10.44); Carbon Dioxide 26 mmol/L (22-29); Chloride 95 mmol/L (98-107); Estimated GFR-MDRD 6; Glucose 114 mg/dL (70-105); Sodium 133 mmol/L (136-145)
[2018-02-03] MEDS: Lanthanum Carbonate 500 mg Tablet PO SCH ×2 (13:20→16:02)
[2018-02-03] MEDS: Calcium Acetate 667 MG CAP PO SCH ×2 (13:20→16:01)
[2018-02-03] MEDS: Folic Acid/Vit B Comp W-C PO SCH (13:21)
[2018-02-03] MEDS: Aspirin 325 MG TAB PO SCH (13:21)
[2018-02-03] MEDS: Carvedilol 6.25 MG TAB PO SCH ×2 (13:21→21:43)
[2018-02-03] MEDS: guaiFENesin ER 600 MG TAB PO SCH ×2 (13:21→21:55)
[2018-02-03] MEDS: Lisinopril 5 MG TAB PO SCH (13:22)
[2018-02-03] MEDS: Loratadine 10 MG TAB PO SCH (13:22)
[2018-02-03] MEDS: Heparin 5,000 UNITS/ML VIAL SC SCH ×4 (13:22→21:43)
[2018-02-03] MEDS: Patiromer Calcium Sorbitex [Veltassa] 8.4 GM PO SCH ×2 (13:22→21:42)
[2018-02-03] MEDS: Saccharomyces boulardii 250 MG CAP PO SCH (13:23)
--- NOTE | 2018-02-03 13:29 | PRG ---
DATE OF SERVICE: 02/03/2018 SUBJECTIVE: A 42-year-old gentleman being seen for end-stage renal disease. The patient denies any nausea, vomiting or chest pain. PHYSICAL EXAMINATION: GENERAL: Patient is awake, alert. VITAL SIGNS: Afebrile, pulse 83, breathing 16, blood pressure 157/70. HEAD/NECK: Normocephalic. Atraumatic. EYES: EOMI. No deformity. EARS: Clear. No ulcers. NOSE: Intact. No lesions. MOUTH: Clear. No discharge. THROAT: Clear. No exudate. LUNGS: Clear. No crackles. CARDIAC: S1, S2. No rub. ABDOMEN: Benign. BS+. GENITALIA/RECTUM: Mei absent. BACK/EXTREMITIES: Edema 0+ Ulcer- NEUROLOGICAL: Alert and motor intact. SKIN: Rash- Bruise- LYMPHATICS: Edema- Ulcer- LABORATORY DATA: Show hemoglobin 13. ASSESSMENT AND RECOMMENDATIONS: 1. Stage 6 chronic kidney disease. Continue hemodialysis on Friday, Friday, and Friday. 2. Hypertension, stable. 3. Anemia, stable. 4. Medications based on glomerular filtration rate are appropriate.
--- NOTE | 2018-02-03 14:32 | PDOC.PN ---
- Subjective Encounter Start Date: 02/03/18 Encounter Start Time: 14:30 Subjective: feels better. arm redness improving. no new complaints - Objective Resuscitation Status: Resuscitation Status DNR:Do Not Resuscitate MAR Reviewed: Yes Vital Signs & Weight: Vital Signs (12 hours) Temp Pulse Pulse Resp BP BP BP 02/03/18 13:22 80 02/03/18 13:21 129/74 02/03/18 12:26 98.4 F 80 16 02/03/18 09:00 98.5 F 83 16 02/03/18 07:32 98.5 F 80 80 16 156/77 H 02/03/18 04:00 96.7 F L 76 18 137/63 BP Pulse Ox 02/03/18 13:22 02/03/18 13:21 02/03/18 12:26 126/58 L 98 02/03/18 09:00 157/73 H 98 02/03/18 07:32 98 02/03/18 04:00 98 Weight Admit Weight 292 lb 15.909 oz Weight 293 lb 11.2 oz I&O: 02/02/18 02/03/18 02/04/18 06:59 06:59 06:59 Intake Total 840 1800 Output Total 50 2600 Balance 790 -800 Result Diagrams: 02/01/18 05:41 02/03/18 05:07 Additional Labs: Accuchecks 02/03/18 02/03/18 02/02/18 11:49 06:02 21:15 POC Glucose 137 H 127 H 128 H 02/02/18 02/02/18 16:37 06:14 POC Glucose 132 H 77 Microbiology 01/29/18 21:10 Finger Bacterial Culture - Final Methicillin resistant S.aureus 01/29/18 12:09 Venous blood - Right Arm Blood Culture - Final NO GROWTH IN 5 DAYS 01/29/18 12:04 Venous blood - Right Arm Blood Culture - Final Coagulase Neg Staphylococcus Phys Exam - Physical Examination Constitutional: NAD HEENT: PERRLA, moist MMs, sclera anicteric, TM's clear, oral pharynx no lesions , 2+ tonsils Neck: no nodes, no JVD, supple, full ROM Respiratory: no wheezing, no rales, no rhonchi, clear to auscultation bilateral Cardiovascular: RRR, no significant murmur Gastrointestinal: soft, non-tender, no distention, positive bowel sounds Musculoskeletal: no edema, pulses present erythema better.still some induration Neurological: non-focal, normal sensation, moves all 4 limbs Psychiatric: normal affect, A&O x 3 Skin: no rash Dx/Plan (1) Cellulitis of left upper extremity Code(s): L03.114 - CELLULITIS OF LEFT UPPER LIMB Status: Acute Comment: Continue Rocephin and sliding scale Vancomycin with HD (2) Gangrene of finger of left hand Code(s): I96 - GANGRENE, NOT ELSEWHERE CLASSIFIED Status: Acute Comment: Consult Gen surgery for evaluation, WCT for local care, continue Vancomycin and Rocephin (3) Sepsis Code(s): A41.9 - SEPSIS, UNSPECIFIED ORGANISM Status: Suspected Qualifiers: Sepsis type: methicillin resistant Staphylococcus aureus Qualified Code(s) : A41.02 - Sepsis due to Methicillin resistant Staphylococcus aureus (4) Bacteremia, coagulase-negative staphylococcal Code(s): R78.81 - BACTEREMIA Status: Acute Comment: Potential contaminant however high risk for staph infection given hx, ischemia and open wounds to Left fingertips (5) Anemia of renal disease Code(s): D63.1 - ANEMIA IN CHRONIC KIDNEY DISEASE Status: Chronic (6) CAD (coronary artery disease) Code(s): I25.10 - ATHSCL HEART DISEASE OF [place] CORONARY ARTERY W/O ANG PCTRS Status: Chronic Qualifiers: Coronary Disease-Associated Artery/Lesion type: bypass graft [place] vs. transplanted heart: [place] heart Associated angina: without angina Qualified Code(s): I25.810 - Atherosclerosis of coronary artery bypass graft(s) without angina pectoris Comment: CABG 2017.on ASA,statin,BB (7) DM2 (diabetes mellitus, type 2) Status: Chronic Qualifiers: Diabetes mellitus termite treater helper insulin use: with half-way use Diabetes mellitus complication status: with kidney complications Diabetes mellitus complication detail: with chronic kidney disease Chronic kidney disease stage : on chronic dialysis Qualified Code(s): E11.22 - Type 2 diabetes mellitus with diabetic chronic kidney disease; N18.6 - End stage renal disease; Z99.2 - Dependence on renal dialysis; Z99.2 - Dependence on renal dialysis; Z99.2 - Dependence on renal dialysis; N18.6 - End stage renal disease; N18.6 - End stage renal disease; N18.6 - End stage renal disease; Z79.4 - keno terminal operator (current ) use of insulin; Z79.4 - keno terminal operator (current) use of insulin; Z79.4 - residential (current) use of insulin; Z79.4 - residential (current) use of insulin; Z99.2 - Dependence on renal dialysis Comment: Continue Tresiba 50u sc HS, ISS (8) Dyslipidemia Code(s): E78.5 - HYPERLIPIDEMIA, UNSPECIFIED Status: Chronic (9) ESRD (end stage renal disease) on dialysis Code(s): N18.6 - END STAGE RENAL DISEASE; Z99.2 - DEPENDENCE ON RENAL DIALYSIS Status: Chronic Comment: HD per Renal service, completed maintenance HD 01/30 (10) Obesity (BMI 30-39.9) Code(s): E66.9 - OBESITY, UNSPECIFIED Status: Chronic (11) PVD (peripheral vascular disease) Code(s): I73.9 - PERIPHERAL VASCULAR DISEASE, UNSPECIFIED Status: Chronic Comment: Continue ASA 325mg daily (12) Secondary hyperparathyroidism of renal origin Code(s): N25.81 - SECONDARY HYPERPARATHYROIDISM OF RENAL ORIGIN Status: Chronic (13) Arrhythmia Code(s): I49.9 - CARDIAC ARRHYTHMIA, UNSPECIFIED Status: Resolved (14) Muscular deconditioning Code(s): R29.898 - OTH SYMPTOMS AND SIGNS INVOLVING THE MUSCULOSKELETAL SYSTEM Status: Chronic - Plan continue antibiotics, PT/OT, respiratory therapy, incentive spirometry, out of bed/ambulate, DVT proph w/SCDs Discussed with Dr. Drake .will continue vancomycin X2 weeks w HD -: all blood cx negative. -: likley to MA back tomorrow once IV ABx arranged. -: hemodynamically stable. -: HD per nephrology * . Review of Systems - Review of Systems Constitutional: weakness, malaise Respiratory: negative: Cough, Dry, Shortness of Breath, Hemoptysis, SOB with Excertion, Pleuritic Pain, Sputum, Wheezing Cardiovascular: negative: chest pain, palpitations, orthopnea, paroxysmal nocturnal dyspnea, edema, light headedness, other Gastrointestinal: negative: Nausea, Vomiting, Abdominal Pain, Diarrhea, Constipation, Melena, Hematochezia, Other Genitourinary: negative: Dysuria, Frequency, Incontinence, Hematuria, Retention , Other Musculoskeletal: negative: Neck Pain, Shoulder Pain, Arm Pain, Back Pain, Hand Pain, Leg Pain, Foot Pain, Other Skin: negative: Rash, Lesions, Km, Bruising, Other Neurological: negative: Weakness, Numbness, Incoordination, Change in Speech, Confusion, Seizures, Other - Medications/Allergies Allergies/Adverse Reactions: Allergies Allergy/AdvReac Type Severity Reaction Status Date / Time No Known Allergies Allergy Verified 07/15/17 02:05 Medications: Current Medications Acetaminophen (Tylenol) 1,000 mg PO Q6H PRN PRN Reason: Headache/Fever or Mild Pain Hydrocodone Bitart/Acetaminophen ([place] 5/325) 1 tab PO Q4HR PRN PRN Reason: Pain Last Admin: 01/31/18 21:24 Dose: 1 tab Aspirin (Aspirin) 325 mg PO DAILY [facility] Last Admin: 02/03/18 13:21 Dose: Not Given Atorvastatin Calcium (Lipitor) 80 mg PO HS [facility] Last Admin: 02/02/18 20:41 Dose: 80 mg Calcium Acetate (Phoslo) 1,334 mg PO BID-[facility] Last Admin: 02/03/18 13:20 Dose: Not Given Carvedilol (Coreg) 6.25 mg PO BID [facility] Last Admin: 02/03/18 13:21 Dose: Not Given Cholecalciferol (Vitamin D3) 2,000 units PO DAILY [facility] Last Admin: 02/03/18 13:21 Dose: Not Given Clonidine (Catapres) 0.1 mg PO Q4H PRN PRN Reason: Systolic BP > 180 Last Admin: 02/01/18 11:52 Dose: 0.1 mg Dextrose/Water (Dextrose 50%) 25 gm SLOW IVP PRN PRN PRN Reason: Hypoglycemia Docusate Sodium (Colace) 100 mg PO DAILY PRN PRN Reason: Constipation Famotidine (Pepcid) 20 mg PO 2100 [facility] Last Admin: 02/02/18 20:42 Dose: Not Given Glucagon (Glucagon) 1 mg IM PRN PRN PRN Reason: Hypoglycemia Guaifenesin (Mucinex) 1,200 mg PO Q12HR [facility] Last Admin: 02/03/18 13:21 Dose: Not Given Heparin Sodium (Porcine) (Heparin) 5,000 units SC BID [facility] Last Admin: 02/03/18 13:22 Dose: Not Given Hydralazine HCl (Apresoline) 10 mg SLOW IVP Q4H PRN PRN Reason: Systolic BP > 180 Ceftriaxone Sodium 2 gm/ (Sodium Chloride) 100 mls @ 200 mls/hr IVPB 2100 [facility] Last Admin: 02/02/18 20:37 Dose: 100 mls Dextrose/Water (D5w) 1,000 mls @ 0 mls/hr IV .Q0M PRN; As Directed PRN Reason: Hypoglycemia Vancomycin HCl 1.25 gm/ Sodium (Chloride) 250 mls @ 166.667 mls/hr IVPB [facility] Vancomycin HCl 1 gm/ Device 200 mls @ 200 mls/hr IVPB [facility] Vancomycin HCl 750 mg/ Sodium (Chloride) 250 mls @ 250 mls/hr IVPB [facility] Vancomycin HCl 500 mg/ Sodium (Chloride) 100 mls @ 100 mls/hr IVPB [facility] Last Admin: 02/02/18 09:47 Dose: 100 mls Insulin Human Lispro (Humalog) 0 units SC .MODERATE SLIDING SC PRN PRN Reason: Moderate Correctional Scale Last Admin: 01/30/18 18:26 Dose: 2 unit Insulin Human Lispro (Humalog) 0 units SC .BEDTIME SLIDING SC PRN PRN Reason: Bedtime Correctional Scale Lanthanum Carbonate (Fosrenol) 1,000 mg PO BID-[facility] Last Admin: 02/03/18 13:20 Dose: Not Given Lisinopril (Zestril) 5 mg PO DAILY [facility] Last Admin: 02/03/18 13:22 Dose: Not Given Loratadine (Claritin) 10 mg PO DAILY [facility] Last Admin: 02/03/18 13:22 Dose: Not Given Melatonin (Melatonin) 6 mg PO [facility] Last Admin: 02/02/18 20:45 Dose: Not Given Hold Vancomycin For (Level >20) 0 each FS .AT DIALYSIS [facility] Ondansetron HCl (Zofran Odt) 4 mg PO Q6H PRN PRN Reason: Nausea/Vomiting Last Admin: 02/02/18 20:44 Dose: 4 mg Ondansetron HCl (Zofran) 4 mg IVP Q6H PRN PRN Reason: Nausea/Vomiting [Tresiba Flextouch U (-100] 50 Unit)) 0 each SC [facility] Last Admin: 02/02/18 20:39 Dose: 50 each Patiromer Calcium Sorbitex [Veltassa] 8.4 Gm 1 each PO BID [facility] Last Admin: 02/03/18 13:22 Dose: Not Given Polyethylene Glycol (Miralax) 17 gm PO DAILY PRN PRN Reason: Constipation Risperidone (Risperidone) 0.25 mg PO [facility] Last Admin: 02/02/18 20:42 Dose: Not Given Saccharomyces Boulardii (Florastor) 250 mg PO DAILY [facility] Last Admin: 02/03/18 13:23 Dose: Not Given Sodium Chloride (Flush - Normal Saline) 10 ml IVF Q12HR [facility] Last Admin: 02/03/18 13:23 Dose: Not Given Sodium Chloride (Flush - Normal Saline) 10 ml IVF PRN PRN PRN Reason: Saline Flush Vitamin B Complex/Vit C/Folic Acid (Nephro-Anel Tablet) 1 tab PO DAILY [facility] Last Admin: 02/03/18 13:21 Dose: Not Given
[2018-02-03] MEDS ORDERED: Heparin 10,000 UNITS/ 10 ML VIAL ONE (14:56)
--- NOTE | 2018-02-03 16:14 | PRG ---
DATE OF SERVICE: 02/03/2018 Mr. Tolbert is doing well today. Left arm cellulitis is resolved. Blood cultures are negative to day. The patient is an urgent need for more permanent dialysis access. He will need a thigh dialysi s graft. 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 The patient was referred to [facility] in [facility] dialysis access as he was told they were the only people that did that. The patient can contact me should he desire to have that done locally and we can arrange that. The patient needs to have it do ne as soon as possible as he is at risk for bacteremia from a senescent dialysis catheter. At this p oint, I will see him as needed this hospitalization. Please call if necessary.
[2018-02-03] MEDS: HYDROcodone/Acetaminophen 5/325 mg Tablet PO PRN (18:26)
[2018-02-03] MEDS: cefTRIAXone\\ROCEPHIN 2 GM in Sodium Chloride 0.9% 100 ML IVPB SCH (21:41)
[2018-02-03] MEDS: Famotidine 20 MG TAB PO SCH (21:43)
[2018-02-03] MEDS: Atorvastatin Calcium 40 MG TAB PO SCH (21:43)
[2018-02-03] MEDS: risperiDONE 0.25 MG TAB PO SCH (21:55)
[2018-02-03] MEDS: Melatonin 3 MG TAB PO SCH (22:09)
[2018-02-04 08:37] LABS: Anion Gap 21 mmol/L (10-20); BUN (Urea Nitrogen) 94 mg/dL (8.9-20.6); Calc. Creatinine Clearance 16 mL/min (70-130); Calcium 9.1 mg/dL (7.8-10.44); Carbon Dioxide 23 mmol/L (22-29); Chloride 96 mmol/L (98-107); Estimated GFR-MDRD 5; Glucose 125 mg/dL (70-105); Sodium 134 mmol/L (136-145)
[2018-02-04 08:44] LABS: Vancomycin, Trough 15.7 ug/mL
[2018-02-04] MEDS ORDERED: Lisinopril 10 MG TAB PO SCH (09:00)
[2018-02-04] MEDS ORDERED: Heparin 10,000 UNITS/ 10 ML VIAL ONE (10:00)
[2018-02-04] MEDS ORDERED: Activase 2 MG VIAL CATH SCH (10:00)
--- NOTE | 2018-02-04 10:28 | PRG ---
DATE OF SERVICE: 02/04/2018 SUBJECTIVE: This is a 42-year-old gentleman being seen for end-stage renal disease. The patient den ies any nausea, vomiting or chest pain. PHYSICAL EXAMINATION: GENERAL: Patient is awake, alert. VITAL SIGNS: Afebrile, pulse 79, breathing 16, blood pressure 167/90. HEAD/NECK: Normocephalic. Atraumatic. EYES: EOMI. No deformity. EARS: Clear. No ulcers. NOSE: Intact. No lesions. MOUTH: Clear. No discharge. THROAT: Clear. No exudate. LUNGS: Clear. No crackles. CARDIAC: S1, S2. No rub. ABDOMEN: Benign. BS+. GENITALIA/RECTUM: Mei absent. BACK/EXTREMITIES: Edema 0+ Ulcer- NEUROLOGICAL: Alert and motor intact. SKIN: Rash- Bruise- LYMPHATICS: Edema- Ulcer- LABORATORY DATA: Show hemoglobin 13. ASSESSMENT AND RECOMMENDATIONS: 1. Stage 6 chronic kidney disease, continue hemodialysis. 2. Hypertension, stable. 3. Anemia, stable. 4. Hyperkalemia. Plan dialysis. 5. Medications based on glomerular filtration rate are appropriate.
[2018-02-04] MEDS: Vancomycin HCl 500 MG in Sodium Chloride 0.9% 100 ML IVPB SCH ×3 (10:37)
[2018-02-04] MEDS: Aspirin 325 MG TAB PO SCH (13:42)
[2018-02-04] MEDS: Lanthanum Carbonate 500 mg Tablet PO SCH ×2 (13:43→16:45)
[2018-02-04] MEDS: Calcium Acetate 667 MG CAP PO SCH ×2 (13:43→16:44)
[2018-02-04] MEDS: Folic Acid/Vit B Comp W-C PO SCH (13:43)
[2018-02-04] MEDS: Loratadine 10 MG TAB PO SCH (13:44)
[2018-02-04] MEDS: Lisinopril 5 MG TAB PO SCH ×2 (13:44→22:04)
[2018-02-04] MEDS: Carvedilol 6.25 MG TAB PO SCH ×2 (13:44→22:02)
[2018-02-04] MEDS: guaiFENesin ER 600 MG TAB PO SCH ×2 (13:44→22:03)
[2018-02-04] MEDS: Saccharomyces boulardii 250 MG CAP PO SCH (13:44)
[2018-02-04] MEDS: Heparin 5,000 UNITS/ML VIAL SC SCH ×4 (13:54→22:04)
[2018-02-04] MEDS: Patiromer Calcium Sorbitex [Veltassa] 8.4 GM PO SCH ×2 (13:56→22:06)
--- NOTE | 2018-02-04 14:27 | PDOC.PN ---
- Subjective Encounter Start Date: 02/04/18 Encounter Start Time: 14:25 Subjective: feels weak and nauseated - Objective Resuscitation Status: Resuscitation Status DNR:Do Not Resuscitate MAR Reviewed: Yes Vital Signs & Weight: Vital Signs (12 hours) Temp Pulse Resp BP BP BP Pulse Ox 02/04/18 13:15 98.2 F 83 16 145/81 H 97 02/04/18 06:36 179/82 H 02/04/18 04:10 96.7 F L 79 19 173/102 H 98 Weight Admit Weight 292 lb 15.909 oz Weight 292 lb 12.8 oz I&O: 02/03/18 02/04/18 02/05/18 06:59 06:59 06:59 Intake Total 1800 715 Output Total 2600 100 Balance -800 615 Result Diagrams: 02/01/18 05:41 02/04/18 08:05 Additional Labs: Accuchecks 02/04/18 02/03/18 06:14 17:11 POC Glucose 130 H 127 H Microbiology 01/29/18 21:10 Finger Bacterial Culture - Final Methicillin resistant S.aureus 01/29/18 12:09 Venous blood - Right Arm Blood Culture - Final NO GROWTH IN 5 DAYS 01/29/18 12:04 Venous blood - Right Arm Blood Culture - Final Coagulase Neg Staphylococcus Phys Exam - Physical Examination Constitutional: NAD HEENT: PERRLA, moist MMs, sclera anicteric, oral pharynx no lesions Neck: no nodes, no JVD, supple, full ROM Respiratory: no wheezing, no rales, no rhonchi, wheezing present, clear to auscultation bilateral Cardiovascular: RRR, no significant murmur Gastrointestinal: soft, non-tender, no distention, positive bowel sounds Musculoskeletal: no edema, pulses present left arm erythema better Neurological: non-focal, normal sensation, moves all 4 limbs Psychiatric: normal affect, A&O x 3 Skin: no rash Dx/Plan (1) Cellulitis of left upper extremity Code(s): L03.114 - CELLULITIS OF LEFT UPPER LIMB Status: Acute Comment: Continue Rocephin and sliding scale Vancomycin with HD (2) Gangrene of finger of left hand Code(s): I96 - GANGRENE, NOT ELSEWHERE CLASSIFIED Status: Acute Comment: Gen surgery recs for ABx only., WCT for local care, continue Vancomycin and Rocephin (3) Sepsis Code(s): A41.9 - SEPSIS, UNSPECIFIED ORGANISM Status: Suspected Qualifiers: Sepsis type: methicillin resistant Staphylococcus aureus Qualified Code(s) : A41.02 - Sepsis due to Methicillin resistant Staphylococcus aureus (4) Bacteremia, coagulase-negative staphylococcal Code(s): R78.81 - BACTEREMIA Status: Acute Comment: Potential contaminant however high risk for staph infection given hx, ischemia and open wounds to Left fingertips (5) Anemia of renal disease Code(s): D63.1 - ANEMIA IN CHRONIC KIDNEY DISEASE Status: Chronic (6) CAD (coronary artery disease) Code(s): I25.10 - ATHSCL HEART DISEASE OF [place] CORONARY ARTERY W/O ANG PCTRS Status: Chronic Qualifiers: Coronary Disease-Associated Artery/Lesion type: bypass graft [place] vs. transplanted heart: [place] heart Associated angina: without angina Qualified Code(s): I25.810 - Atherosclerosis of coronary artery bypass graft(s) without angina pectoris Comment: CABG 2017.on ASA,statin,BB (7) DM2 (diabetes mellitus, type 2) Status: Chronic Qualifiers: Diabetes mellitus mcc insulin use: with mcc use Diabetes mellitus complication status: with kidney complications Diabetes mellitus complication detail: with chronic kidney disease Chronic kidney disease stage : on chronic dialysis Qualified Code(s): E11.22 - Type 2 diabetes mellitus with diabetic chronic kidney disease; N18.6 - End stage renal disease; Z99.2 - Dependence on renal dialysis; Z99.2 - Dependence on renal dialysis; Z99.2 - Dependence on renal dialysis; N18.6 - End stage renal disease; N18.6 - End stage renal disease; N18.6 - End stage renal disease; Z79.4 - [facility] (current ) use of insulin; Z79.4 - marine oil terminal superintendent (current) use of insulin; Z79.4 - [facility] (current) use of insulin; Z79.4 - [facility] (current) use of insulin; Z99.2 - Dependence on renal dialysis Comment: Continue Tresiba 50u sc HS, ISS (8) Dyslipidemia Code(s): E78.5 - HYPERLIPIDEMIA, UNSPECIFIED Status: Chronic (9) ESRD (end stage renal disease) on dialysis Code(s): N18.6 - END STAGE RENAL DISEASE; Z99.2 - DEPENDENCE ON RENAL DIALYSIS Status: Chronic Comment: HD per Renal service, completed maintenance HD 01/30 (10) Obesity (BMI 30-39.9) Code(s): E66.9 - OBESITY, UNSPECIFIED Status: Chronic (11) PVD (peripheral vascular disease) Code(s): I73.9 - PERIPHERAL VASCULAR DISEASE, UNSPECIFIED Status: Chronic Comment: Continue ASA 325mg daily (12) Secondary hyperparathyroidism of renal origin Code(s): N25.81 - SECONDARY HYPERPARATHYROIDISM OF RENAL ORIGIN Status: Chronic (13) Arrhythmia Code(s): I49.9 - CARDIAC ARRHYTHMIA, UNSPECIFIED Status: Resolved (14) Muscular deconditioning Code(s): R29.898 - OTH SYMPTOMS AND SIGNS INVOLVING THE MUSCULOSKELETAL SYSTEM Status: Chronic - Plan PT/OT, social research assistant, incentive spirometry, out of bed/ambulate, DVT proph w/ SCDs Will set up for IV Vancomycin w HD per Sliding scale at [place] -: Will fax records to [facility] Dr. Pack([place] [facility]) for HD access -: Pt had HD catheter for now w high risk of infection/bacteremia -: needs new access & has tried twice but did not get it at [place] -: add OT,PT,wound care for NH * .HD per nephrology. * DC later today or early tomorrow if ABx arranged Review of Systems - Review of Systems Constitutional: weakness, malaise. negative: fever, chills, sweats, other ENT: negative: Ear Pain, Ear Discharge, Nose Pain, Nose Discharge, Nose Congestion, Mouth Pain, Mouth Swelling, Throat Pain, Throat Swelling, Other Respiratory: negative: Cough, Dry, Shortness of Breath, Hemoptysis, SOB with Excertion, Pleuritic Pain, Sputum, Wheezing Cardiovascular: negative: chest pain, palpitations, orthopnea, paroxysmal nocturnal dyspnea, edema, light headedness, other Gastrointestinal: negative: Nausea, Vomiting, Abdominal Pain, Diarrhea, Constipation, Melena, Hematochezia, Other Genitourinary: negative: Dysuria, Frequency, Incontinence, Hematuria, Retention , Other Musculoskeletal: negative: Neck Pain, Shoulder Pain, Arm Pain, Back Pain, Hand Pain, Leg Pain, Foot Pain, Other Skin: negative: Rash, Lesions, Km, Bruising, Other Neurological: negative: Weakness, Numbness, Incoordination, Change in Speech, Confusion, Seizures, Other - Medications/Allergies Allergies/Adverse Reactions: Allergies Allergy/AdvReac Type Severity Reaction Status Date / Time No Known Allergies Allergy Verified 07/15/17 02:05 Medications: Current Medications Acetaminophen (Tylenol) 1,000 mg PO Q6H PRN PRN Reason: Headache/Fever or Mild Pain Hydrocodone Bitart/Acetaminophen ([place] 5/325) 1 tab PO Q4HR PRN PRN Reason: Pain Last Admin: 02/03/18 18:26 Dose: 1 tab Aspirin (Aspirin) 325 mg PO DAILY [facility] Last Admin: 02/04/18 13:42 Dose: 325 mg Atorvastatin Calcium (Lipitor) 80 mg PO HS [facility] Last Admin: 02/03/18 21:43 Dose: 80 mg Calcium Acetate (Phoslo) 1,334 mg PO BID-[facility] Last Admin: 02/04/18 13:43 Dose: 1,334 mg Carvedilol (Coreg) 6.25 mg PO BID [facility] Last Admin: 02/04/18 13:44 Dose: 6.25 mg Cholecalciferol (Vitamin D3) 2,000 units PO DAILY [facility] Last Admin: 02/04/18 13:44 Dose: 2,000 units Clonidine (Catapres) 0.1 mg PO Q4H PRN PRN Reason: Systolic BP > 180 Last Admin: 02/01/18 11:52 Dose: 0.1 mg Dextrose/Water (Dextrose 50%) 25 gm SLOW IVP PRN PRN PRN Reason: Hypoglycemia Docusate Sodium (Colace) 100 mg PO DAILY PRN PRN Reason: Constipation Famotidine (Pepcid) 20 mg PO 2100 [facility] Last Admin: 02/03/18 21:43 Dose: 20 mg Glucagon (Glucagon) 1 mg IM PRN PRN PRN Reason: Hypoglycemia Guaifenesin (Mucinex) 1,200 mg PO Q12HR [facility] Last Admin: 02/04/18 13:44 Dose: 1,200 mg Heparin Sodium (Porcine) (Heparin) 5,000 units SC BID [facility] Last Admin: 02/04/18 13:54 Dose: 5,000 units Hydralazine HCl (Apresoline) 10 mg SLOW IVP Q4H PRN PRN Reason: Systolic BP > 180 Ceftriaxone Sodium 2 gm/ (Sodium Chloride) 100 mls @ 200 mls/hr IVPB 2100 [facility] Last Admin: 02/03/18 21:41 Dose: 100 mls Dextrose/Water (D5w) 1,000 mls @ 0 mls/hr IV .Q0M PRN; As Directed PRN Reason: Hypoglycemia Vancomycin HCl 1.25 gm/ Sodium (Chloride) 250 mls @ 166.667 mls/hr IVPB [facility] Vancomycin HCl 1 gm/ Device 200 mls @ 200 mls/hr IVPB [facility] Vancomycin HCl 750 mg/ Sodium (Chloride) 250 mls @ 250 mls/hr IVPB [facility] Vancomycin HCl 500 mg/ Sodium (Chloride) 100 mls @ 100 mls/hr IVPB [facility] Last Admin: 02/04/18 10:37 Dose: 100 mls Insulin Human Lispro (Humalog) 0 units SC .MODERATE SLIDING SC PRN PRN Reason: Moderate Correctional Scale Last Admin: 01/30/18 18:26 Dose: 2 unit Insulin Human Lispro (Humalog) 0 units SC .BEDTIME SLIDING SC PRN PRN Reason: Bedtime Correctional Scale Lanthanum Carbonate (Fosrenol) 1,000 mg PO BID-[facility] Last Admin: 02/04/18 13:43 Dose: 1,000 mg Lisinopril (Zestril) 5 mg PO BID [facility] Loratadine (Claritin) 10 mg PO DAILY [facility] Last Admin: 02/04/18 13:44 Dose: 10 mg Melatonin (Melatonin) 6 mg PO [facility] Last Admin: 02/03/18 22:09 Dose: Not Given Hold Vancomycin For (Level >20) 0 each FS .AT DIALYSIS [facility] Ondansetron HCl (Zofran Odt) 4 mg PO Q6H PRN PRN Reason: Nausea/Vomiting Last Admin: 02/02/18 20:44 Dose: 4 mg Ondansetron HCl (Zofran) 4 mg IVP Q6H PRN PRN Reason: Nausea/Vomiting [Tresiba Flextouch U (-100] 50 Unit)) 0 each SC [facility] Last Admin: 02/03/18 21:42 Dose: Not Given Patiromer Calcium Sorbitex [Veltassa] 8.4 Gm 1 each PO BID [facility] Last Admin: 02/04/18 13:56 Dose: 1 each Polyethylene Glycol (Miralax) 17 gm PO DAILY PRN PRN Reason: Constipation Risperidone (Risperidone) 0.25 mg PO HS [facility] Last Admin: 02/03/18 21:55 Dose: 0.25 mg Saccharomyces Boulardii (Florastor) 250 mg PO DAILY [facility] Last Admin: 02/04/18 13:44 Dose: 250 mg Sodium Chloride (Flush - Normal Saline) 10 ml IVF Q12HR [facility] Last Admin: 02/04/18 13:59 Dose: 10 ml Sodium Chloride (Flush - Normal Saline) 10 ml IVF PRN PRN PRN Reason: Saline Flush Vitamin B Complex/Vit C/Folic Acid (Nephro-Anel Tablet) 1 tab PO DAILY [facility] Last Admin: 02/04/18 13:43 Dose: 1 tab
[2018-02-04 15:03] VITALS: BMI 42.0
[2018-02-04] MEDS: cloNIDine 0.1 MG TAB PO PRN (16:45)
--- NOTE | 2018-02-04 16:51 | PDOC.EVN ---
Event Note - Event Note Event Note: discussed with Renal transplant surgeon at [facility]. Hospital to hospital transfet for thigh fistila denies.Will have to get it done as an Outpt. is Dr. Forrest at [facility], Renal traslan who has performed prior access in 02/2017.
[2018-02-04] MEDS: HumaLOG 300 UNITS/3 ML VIAL SC PRN (18:17)
[2018-02-04] MEDS: Atorvastatin Calcium 40 MG TAB PO SCH (22:02)
[2018-02-04] MEDS: Famotidine 20 MG TAB PO SCH (22:03)
[2018-02-04] MEDS: cefTRIAXone\\ROCEPHIN 2 GM in Sodium Chloride 0.9% 100 ML IVPB SCH (22:03)
[2018-02-04] MEDS: Melatonin 3 MG TAB PO SCH (22:04)
[2018-02-04] MEDS: risperiDONE 0.25 MG TAB PO SCH (22:06)
[2018-02-05 06:12] LABS: Anion Gap 19 mmol/L (10-20); BUN (Urea Nitrogen) 62 mg/dL (8.9-20.6); Calc. Creatinine Clearance 20 mL/min (70-130); Calcium 9.2 mg/dL (7.8-10.44); Carbon Dioxide 23 mmol/L (22-29); Chloride 96 mmol/L (98-107); Estimated GFR-MDRD 7; Glucose 149 mg/dL (70-105); Potassium 5.4 mmol/L (3.5-5.1); Sodium 133 mmol/L (136-145)
--- NOTE | 2018-02-05 07:08 | PRG ---
DATE OF SERVICE: 02/04/2018 He is feeling better. No headaches, no respiratory symptoms or abdominal pain, no diarrhea. PHYSICAL EXAMINATION: VITAL SIGNS: T-max 98.8, blood pressure 130/65, pulse 72, respirations 20. SKIN: Not remarkable. LUNGS: Clear. CARDIOVASCULAR: S1, S2, without murmurs. No S3, S4. LABORATORY: White cell count 9.0, hemoglobin 13, platelets 199. Chemistry not remarkable. Microbio logy with methicillin-resistant Staph aureus from the finger and coagulase negative Staph from one se t of blood cultures, likely a contaminant. CT of the extremity did not show any evidence of phlegmon or retained foreign body. ASSESSMENT: Cellulitis, left upper extremity without evidence of abscess or foreign body. Continue vancomycin administered through dialysis access for the next 2 weeks The reason for the development of the cellulitis is not clear at this time, self-excoriation is one o f the possibilities. No evidence of retained foreign body or abscess in the extremity. The other po ssibility would be lymphatic spread from the openings in the distal parts of the left hand.
[2018-02-05] MEDS: Saccharomyces boulardii 250 MG CAP PO SCH (08:43)
[2018-02-05] MEDS: Folic Acid/Vit B Comp W-C PO SCH (08:44)
[2018-02-05] MEDS: Calcium Acetate 667 MG CAP PO SCH ×2 (08:44→17:58)
[2018-02-05] MEDS: Aspirin 325 MG TAB PO SCH (08:44)
[2018-02-05] MEDS: Loratadine 10 MG TAB PO SCH (08:44)
[2018-02-05] MEDS: Carvedilol 6.25 MG TAB PO SCH ×2 (08:45→21:35)
[2018-02-05] MEDS: Lisinopril 5 MG TAB PO SCH ×2 (08:45→21:36)
[2018-02-05] MEDS: guaiFENesin ER 600 MG TAB PO SCH ×2 (08:46→21:35)
[2018-02-05] MEDS: Lanthanum Carbonate 500 mg Tablet PO SCH ×2 (08:49→18:00)
[2018-02-05] MEDS: Heparin 5,000 UNITS/ML VIAL SC SCH ×4 (08:53→21:37)
--- NOTE | 2018-02-05 09:53 | PRG ---
DATE OF SERVICE: 02/05/2018 SUBJECTIVE: This is a 42-year-old gentleman being seen for end-stage renal disease. Patient denies any chest pain, but has chronic nausea. PHYSICAL EXAMINATION: GENERAL: Patient is awake, alert. VITAL SIGNS: Afebrile, pulse 70, breathing 16, blood pressure 142/74. OBJECTIVE: See above. Awake, alert, in no acute distress. GENERAL APPEARANCE AND MENTAL STATUS: Fair. HEAD/NECK: Normocephalic. Atraumatic. EYES: EOMI. No deformity. EARS: Clear. No ulcers. NOSE: Intact. No lesions. MOUTH: Clear. No discharge. THROAT: Clear. No exudate. LUNGS: Clear. No crackles. CARDIAC: S1, S2. No rub. ABDOMEN: Benign. BS+. GENITALIA/RECTUM: Mei absent. BACK/EXTREMITIES: Edema 0+ Ulcer- NEUROLOGICAL: Alert and motor intact. SKIN: Rash- Bruise- LYMPHATICS: Edema- Ulcer- LABORATORY: Hemoglobin 13, potassium 5.4. ASSESSMENT: 1. Stage 6 chronic kidney disease. We will plan dialysis. Potassium is elevated. 2. Hyperkalemia. Recheck potassium. I would recommend low potassium diet 3. Anemia, stable. 4. Medication based on glomerular filtration rate are appropriate. 5. Chronic nausea and vomiting, probably due to diabetic gastroparesis.
[2018-02-05] MEDS: Patiromer Calcium Sorbitex [Veltassa] 8.4 GM PO SCH ×2 (11:30→21:38)
--- NOTE | 2018-02-05 11:52 | PDOC.PN ---
- Subjective Encounter Start Date: 02/05/18 Encounter Start Time: 11:49 Patient seen and examined, no new issues or complaints, all questions answered. - Objective Resuscitation Status: Resuscitation Status DNR:Do Not Resuscitate Vital Signs & Weight: Vital Signs (12 hours) Temp Pulse Resp BP BP BP Pulse Ox 02/05/18 11:39 98.5 F 73 20 169/79 H 98 02/05/18 08:45 72 142/74 H 02/05/18 08:00 98.3 F 72 20 163/85 H 98 02/05/18 04:00 97.4 F L 72 20 138/65 98 Weight Admit Weight 292 lb 15.909 oz Weight 285 lb 8 oz I&O: 02/04/18 02/05/18 02/06/18 06:59 06:59 06:59 Intake Total 715 2220 Output Total 100 50 Balance 615 2170 Result Diagrams: 02/01/18 05:41 02/05/18 09:30 Additional Labs: Accuchecks 02/05/18 02/05/18 02/04/18 11:36 06:36 21:15 POC Glucose 145 H 115 H 132 H 02/04/18 02/03/18 16:58 21:08 POC Glucose 159 H 129 H Phys Exam - Physical Examination Constitutional: NAD HEENT: PERRLA, moist MMs, sclera anicteric Neck: no nodes, no JVD Respiratory: no wheezing, no rales, no rhonchi Cardiovascular: RRR, no significant murmur, no rub Gastrointestinal: soft, non-tender, no distention Musculoskeletal: pulses present, edema present (trace) Dx/Plan (1) Bacteremia, coagulase-negative staphylococcal Code(s): R78.81 - BACTEREMIA Status: Acute Comment: Potential contaminant however high risk for staph infection given hx, ischemia and open wounds to Left fingertips (2) Cellulitis of left upper extremity Code(s): L03.114 - CELLULITIS OF LEFT UPPER LIMB Status: Acute Comment: Continue Rocephin and sliding scale Vancomycin with HD (3) Gangrene of finger of left hand Code(s): I96 - GANGRENE, NOT ELSEWHERE CLASSIFIED Status: Acute Comment: Gen surgery recs for ABx only., WCT for local care, continue Vancomycin and Rocephin (4) CAD (coronary artery disease) Code(s): I25.10 - ATHSCL HEART DISEASE OF [place] CORONARY ARTERY W/O ANG PCTRS Status: Chronic Qualifiers: Coronary Disease-Associated Artery/Lesion type: bypass graft [place] vs. transplanted heart: [place] heart Associated angina: without angina Qualified Code(s): I25.810 - Atherosclerosis of coronary artery bypass graft(s) without angina pectoris Comment: CABG 2017.on ASA,statin,BB (5) DM2 (diabetes mellitus, type 2) Status: Chronic Qualifiers: Diabetes mellitus skilled nursing insulin use: with skilled nursing use Diabetes mellitus complication status: with kidney complications Diabetes mellitus complication detail: with chronic kidney disease Chronic kidney disease stage : on chronic dialysis Qualified Code(s): E11.22 - Type 2 diabetes mellitus with diabetic chronic kidney disease; N18.6 - End stage renal disease; Z99.2 - Dependence on renal dialysis; Z99.2 - Dependence on renal dialysis; Z99.2 - Dependence on renal dialysis; N18.6 - End stage renal disease; N18.6 - End stage renal disease; N18.6 - End stage renal disease; Z79.4 - career services manager (current ) use of insulin; Z79.4 - career services manager (current) use of insulin; Z79.4 - long-term (current) use of insulin; Z79.4 - long-term (current) use of insulin; Z99.2 - Dependence on renal dialysis Comment: Continue Tresiba 50u sc HS, ISS (6) ESRD (end stage renal disease) on dialysis Code(s): N18.6 - END STAGE RENAL DISEASE; Z99.2 - DEPENDENCE ON RENAL DIALYSIS Status: Chronic Comment: HD per Renal service, completed maintenance HD 01/30 (7) Obesity (BMI 30-39.9) Code(s): E66.9 - OBESITY, UNSPECIFIED Status: Chronic - Plan * Patient would like to go to [facility] for his surgery * At this point in time the plan will be to HD the patient in AM, case specialist to confirm with [facility] if they have vancomycin available at the HD unit * Patient will require 2 more weeks of vanc with HD, patient can then proceed to have his HD access removed and graft placed, so long as blood cultures remain negative risks of septic infection are low, renal and ID following closely * DC plans in AM post HD once abx are confirmed and ok with renal and ID, patient states he will follow up with [facility] for further management and care once he's discharged * case and plan d/w patient at length, he understands and agrees with this plan
[2018-02-05 13:13] LABS: Vancomycin, Trough 14.8 ug/mL
[2018-02-05] MEDS: cefTRIAXone\\ROCEPHIN 2 GM in Sodium Chloride 0.9% 100 ML IVPB SCH (21:34)
[2018-02-05] MEDS: risperiDONE 0.25 MG TAB PO SCH (21:36)
[2018-02-05] MEDS: Famotidine 20 MG TAB PO SCH (21:36)
[2018-02-05] MEDS: Atorvastatin Calcium 40 MG TAB PO SCH (21:36)
[2018-02-05] MEDS: Melatonin 3 MG TAB PO SCH (21:37)
[2018-02-05] MEDS: HYDROcodone/Acetaminophen 5/325 mg Tablet PO PRN (23:40)
[2018-02-06 06:08] LABS: Anion Gap 19 mmol/L (10-20); BUN (Urea Nitrogen) 56 mg/dL (8.9-20.6); Calc. Creatinine Clearance 21 mL/min (70-130); Calcium 9.4 mg/dL (7.8-10.44); Carbon Dioxide 24 mmol/L (22-29); Chloride 96 mmol/L (98-107); Estimated GFR-MDRD 7; Glucose 168 mg/dL (70-105); Sodium 134 mmol/L (136-145)
[2018-02-06 07:40] LABS: Vancomycin, Trough 16.5 ug/mL
--- NOTE | 2018-02-06 08:24 | PRG ---
DATE OF SERVICE: 02/05/2018 SUBJECTIVE: Mr. Tolbert sitting on the bed. He is feeling well. Denies any headaches, no shortn ess of breath. No arm pain, no abdominal pain. OBJECTIVE: VITAL SIGNS: He has been afebrile throughout the hospital stay. LUNGS: Clear. EXTREMITIES: The left arm erythema has completely resolved. HEART: S1, S2, regular rate. ABDOMEN: Soft. GENITOURINARY: Dialysis catheter site with no inflammatory changes or exudate. LABORATORY DATA: White cell count is 9.0, hemoglobin 13, platelets 199 with 65% neutrophils and sodi um 134, creatinine 8.24. The cultures as noted previously and the CT scan as noted previously. ASSESSMENT AND DISCUSSION: Cellulitis of left upper extremity with no evidence of abscess or retaine d foreign body. Continue vancomycin as ordered for the next 2 weeks with dialysis. Again, self-exco riation is one of the possibilities. Since there is no evidence of retained foreign body or abscess in the extremity. The other possibility would be lymphatic spread from the openings in distal parts of the hand.
[2018-02-06] MEDS: Vancomycin HCl 500 MG in Sodium Chloride 0.9% 100 ML IVPB SCH ×3 (09:49)
[2018-02-06] MEDS ORDERED: Heparin 1,000 UNITS/ML VIAL ONE (11:11)
[2018-02-06] MEDS: Calcium Acetate 667 MG CAP PO SCH (11:17)
[2018-02-06] MEDS: Lanthanum Carbonate 500 mg Tablet PO SCH (11:18)
--- NOTE | 2018-02-06 11:50 | PDOC.EVN ---
Event Note - Event Note Event Note: DC SUMMARY #[id number]
--- NOTE | 2018-02-06 12:03 | PRG ---
DATE OF SERVICE: 02/06/2018 SUBJECTIVE: This is a 42-year-old gentleman being seen for end-stage renal disease. The patient den ies any nausea, vomiting or chest pain. The patient was seen on dialysis. PHYSICAL EXAMINATION: GENERAL: Patient is awake, alert. VITAL SIGNS: Afebrile, pulse 77, breathing at 16, blood pressure 152/76. GENERAL APPEARANCE AND MENTAL STATUS: Fair. HEAD/NECK: Normocephalic. Atraumatic. EYES: EOMI. No deformity. EARS: Clear. No ulcers. NOSE: Intact. No lesions. MOUTH: Clear. No discharge. THROAT: Clear. No exudate. LUNGS: Clear. No crackles. CARDIAC: S1, S2. No rub. ABDOMEN: Benign. BS+. GENITALIA/RECTUM: Mei absent. BACK/EXTREMITIES: Edema 0+ Ulcer- NEUROLOGICAL: Alert and motor intact. SKIN: Rash- Bruise- LYMPHATICS: Edema- Ulcer- LABORATORY DATA: Hemoglobin 13. ASSESSMENT AND RECOMMENDATIONS: 1. Stage 6 chronic kidney disease, on hemodialysis. 2. Hypertension, stable. 3. Hyperkalemia, plan dialysis. 4. Anemia, stable.
[2018-02-06] MEDS: Heparin 5,000 UNITS/ML VIAL SC SCH ×2 (12:10)
[2018-02-06] MEDS: guaiFENesin ER 600 MG TAB PO SCH (12:11)
[2018-02-06] MEDS: Folic Acid/Vit B Comp W-C PO SCH (12:11)
[2018-02-06] MEDS: Loratadine 10 MG TAB PO SCH (12:11)
[2018-02-06] MEDS: Carvedilol 6.25 MG TAB PO SCH (12:11)
[2018-02-06] MEDS: Aspirin 325 MG TAB PO SCH (12:11)
[2018-02-06] MEDS: Saccharomyces boulardii 250 MG CAP PO SCH (12:11)
[2018-02-06] MEDS: Lisinopril 5 MG TAB PO SCH (12:12)
[2018-02-06] MEDS: Patiromer Calcium Sorbitex [Veltassa] 8.4 GM PO SCH (12:12)
[2018-02-06 12:24] VITALS: BP 136/66
--- NOTE | 2018-02-06 13:22 | DIS ---
DATE OF ADMISSION: 01/29/2018 DATE OF DISCHARGE: 02/06/2018 ADMITTING DIAGNOSES: Left upper extremity cellulitis, end-stage renal disease, hypertension, diabete s mellitus type 2, physical deconditioning and fever. DISCHARGE DIAGNOSES: Bacteremia secondary to dialysis line sepsis; end-stage renal, stable; diabetes mellitus type 2, stable; hypertension, stable; coronary artery disease, stable. HOSPITAL COURSE: Patient was a 42-year-old male admitted to the hospital due to sepsis from a line i nfection, likely related to his dialysis access. The patient had close followups with Internal Medic ine, Nephrology, Infectious Disease and Surgery team. The patient stated that he followed up at [facility] and did not want to have any new access created for his dialysis purposes here at this [facility]. Patient had a long discussion with the Surgery Team and it was decided that the patient woul d have IV antibiotics for 2 weeks with vancomycin at point in time of discharge back to his dialysis and the patient was to follow up with his own physician at [facility] for preparation for AV gra ft placement in his leg. The physicians name at [facility] is Dr. Forrest. The patient at this point in time of discharge is stable. The patient received a dialysis treatment prior to discharge a s well as a dose of antibiotics prior to discharge. Arrangements have to be made as an outpatient an d has dialysis unit for vancomycin 1 gram with dialysis for the next 2 weeks. DISPOSITION: Home. FOLLOWUP: Follow up with Dr. Forrest as well as his PCP and maintenance worker swimming pool within 5-10 days. MEDICATIONS: See MAR. ACTIVITY: As tolerated. DIET: Renal. CONDITION: Stable. PROGNOSIS: Guarded. Case and plan discussed with patient at length. He understands and agrees with this plan.
[2018-02-06 14:41] VITALS: TEMP 98
== END 2018-02-06 15:30 | DRG 314 ==
LOC: ERS 11:40 → 2NO 13:23
PROVIDERS: ADMIT Family Medicine; ATTEND Family Medicine
PROC: 5A1D70Z Performance of Urinary Filtration, Intermittent, Less than 6 Hours Per Day (ICD-10-PCS; principal; 2018-01-30)
DX: T82.7XXA Infection and inflammatory reaction due to other cardiac and vascular devices, implants and grafts, initial encounter (principal); A41.9 Sepsis, unspecified organism; N18.6 End stage renal disease; I13.2 Hypertensive heart and chronic kidney disease with heart failure and with stage 5 chronic kidney disease, or end stage renal disease; I47.2 Ventricular tachycardia; I96 Gangrene, not elsewhere classified; L03.114 Cellulitis of left upper limb; Z68.41 Body mass index [BMI] 40.0-44.9, adult; E11.52 Type 2 diabetes mellitus with diabetic peripheral angiopathy with gangrene; N25.81 Secondary hyperparathyroidism of renal origin; E11.22 Type 2 diabetes mellitus with diabetic chronic kidney disease; Z99.2 Dependence on renal dialysis; Z79.4 Long term (current) use of insulin; I69.334 Monoplegia of upper limb following cerebral infarction affecting left non-dominant side; I99.8 Other disorder of circulatory system; E78.5 Hyperlipidemia, unspecified; I25.10 Atherosclerotic heart disease of native coronary artery without angina pectoris; Z95.1 Presence of aortocoronary bypass graft; Z95.2 Presence of prosthetic heart valve; E11.319 Type 2 diabetes mellitus with unspecified diabetic retinopathy without macular edema; Z89.422 Acquired absence of other left toe(s); Z89.421 Acquired absence of other right toe(s); Z66 Do not resuscitate; E66.9 Obesity, unspecified; Z86.14 Personal history of Methicillin resistant Staphylococcus aureus infection; D63.1 Anemia in chronic kidney disease; I49.9 Cardiac arrhythmia, unspecified; L60.1 Onycholysis; E87.5 Hyperkalemia
CPT/HCPCS: 36415; 36416; 80048; 80053; 80202; 83605; 83735; 84484; 85007; 85025; 85027; 87040; 87070; 87077; 87186; 87205; 90935; 96365; 96375; A4216; G0257; G8978-GP-CI; G8979-GP-CH; G8987-GO-CL; G8988-GO-CL; G8989-GO-CL; J0696; J1644; J2270; J2405; J2997; J3370; J7050; Q0162

== ENCOUNTER 2018-03-10 13:19 | Inpatient (IN) | payer MEDICARE, MEDICAID ==
[~2018-03-10 13:19] MED LIST: Heparin 1,000 UNITS/ML VIAL ONE
[2018-03-10] MEDS ORDERED: Calcium Gluc 4.6 MEQ/10 ML (100 MG/ML) ONE (13:38)
[2018-03-10] MEDS ORDERED: Albuterol Sulfate 2.5 mg/0.5 ml Neb ONE ×5 (13:40→14:50)
[2018-03-10] MEDS ORDERED: Albuterol Sulfate 2.5 mg/3 ml Neb ONE (13:41)
[2018-03-10] MEDS ORDERED: Dextrose 50% Abboject 50 ML SYRINGE ONE (13:45)
[2018-03-10] MEDS ORDERED: Insulin Regular 300 UNITS/3 ML VIAL ONE (13:45)
[2018-03-10] MEDS ORDERED: Sodium Bicarb 50 MEQ/50 ML Abboject 8.4% SYRINGE ONE ×2 (13:45→13:55)
[2018-03-10] MEDS ORDERED: Nitroglycerin 2% Ointment 1 INCH/1 GM Packet ONE (13:59)
[2018-03-10 14:02] LABS: #Eosinphils 0.1 thou/uL (0.0-0.7); #Lymphocytes 1.3 thou/uL (1.20-3.40); #Monocytes 0.7 thou/uL (0.11-0.59); #Neutrophils 10.8 thou/uL (1.40-6.50); %Basophils 0.2 % (0.0-1.0); %Eosinophils 0.4 % (0.0-10.0); %Lymphocytes 10.3 % (21.0-51.0); %Monocytes 5.7 % (0.0-10.0); %Neutrophils 83.4 % (42.0-75.0); Hemoglobin 13.6 g/dL (14.0-18.0); Mean Corpuscular Hemoglobin 31.3 pg (27.0-31.0); Mean Corpuscular Volume 94.7 fl (80.0-94.0); Mean Platelet Volume 9.2 fL (7.4-10.4); Platelet Count 152 thou/uL (130-400); Red Blood Cell (RBC) Count 4.34 mill/uL (4.70-6.10); White Blood Cell (WBC) Count 12.9 thou/uL (4.8-10.8)
[2018-03-10 14:14] LABS: INR-International Normal Ratio 1.2; PTT 32.3 SEC (22.9-36.1); Prothrombin Time 15.2 SEC (12.0-14.7)
[2018-03-10 14:21] LABS: Actual Bicarbonate (HCO3a) 16.7 mEq/L (22-26); Base Excess (BEa) -10.7 mEq/L (0 (+/-) 2.5); Hemoglobin (Hb) 12.3 g/dL (14.0-18.0); O2 Tension (PaO2) 184.1 mmHg (80.0-100.0); pH, Arterial 7.21 (7.35-7.45)
[2018-03-10 14:22] LABS: Analyzer IN Cardio ER; Puncture Site RRA
[2018-03-10 14:24] LABS: ALT (SGPT) 18 U/L (8-55); AST (SGOT) 14 U/L (5-34); Albumin 4.3 g/dL (3.5-5.0); Alkaline Phosphatase 163 U/L (40-150); Bilirubin, Total 0.5 mg/dL (0.2-1.2); CK (CPK) 407 U/L (30-200); Calc. Creatinine Clearance 0 mL/min (70-130); Calcium 8.9 mg/dL (7.8-10.44); Carbon Dioxide 10 mmol/L (22-29); Chloride 100 mmol/L (98-107); Estimated GFR-MDRD 3; Globulin 3.6 g/dL (2.4-3.5); Glucose 131 mg/dL (70-105); Magnesium 2.4 mg/dL (1.6-2.6); Protein, Total 7.9 g/dL (6.0-8.3); Sodium 137 mmol/L (136-145)
[2018-03-10 14:34] LABS: CKMB 10.5 ng/mL (0-6.6)
[2018-03-10 14:35] LABS: BUN (Urea Nitrogen) 165 mg/dL (8.9-20.6)
[2018-03-10 14:36] LABS: Potassium Greater than 9.5 mmol/L (3.5-5.1)
[2018-03-10] MEDS ORDERED: Albuterol Sulfate 1.25 MG/3 ML NEB ONE (14:50)
[2018-03-10 15:18] LABS: HBSAg Index 0.17 S/CO (0-0.99); Hep B Surf Ag Non-Reactive S/CO (NonReactive)
[2018-03-10] MEDS ORDERED: Metoprolol Tartrate 5 MG/5 ML VIAL IVP PRN (15:21)
--- NOTE | 2018-03-10 15:27 | RAD ---
PORTABLE CHEST ONE VIEW: Date: 03-10-18 Time: 2:01 p.m. History: Chest pain. Shortness of breath. FINDINGS/IMPRESSION: Comparison made with exam of 08-29-17. There are changes of median sternotomy. The heart is enlarged. The right sided dialysis catheter melvin ins in place. There is mild prominence of the pulmonary vasculature. No lobar consolidation, pneumoth oraces or large effusions are seen. POS: H
[2018-03-10 16:02] LABS: Bilirubin Negative (Negative); Blood, Urine Small (Negative); Clarity CLEAR (Clear); Glucose, Urine (Dipstick) 100 mg/dL (Negative); Leukocyte Trace (Negative); Nitrite Negative (Negative); Protein, Urine (Dipstick) 100 mg/dL (Neg-Trace); Specific Gravity, Urine 1.014 (1.002-1.036); Urobilinogen 0.2 mg/dL (0.2-1.0)
[2018-03-10 16:05] LABS: Bacteria/HPF None Seen HPF (None Seen); Hyaline Casts/LPF 0-3 HYALINE CAST LPF (0-3 Hyaline); Pathc Cast-AUWi Flag 0.14 (0-2.49); RBC/HPF 0-3 HPF (0-3); Squamous Epithelial 0-3 HPF (0-3)
[2018-03-10 16:06] LABS: BUN (Urea Nitrogen) 173 mg/dL (8.9-20.6)
[2018-03-10 16:11] LABS: Anion Gap 35 mmol/L (10-20); Calc. Creatinine Clearance 0 mL/min (70-130); Calcium 8.5 mg/dL (7.8-10.44); Carbon Dioxide 11 mmol/L (22-29); Chloride 101 mmol/L (98-107); Estimated GFR-MDRD 3; Glucose 141 mg/dL (70-105); Potassium 9.3 mmol/L (3.5-5.1); Sodium 138 mmol/L (136-145)
[2018-03-10 16:15] LABS: Yeast-All Forms None Seen HPF (None Seen)
[2018-03-10 17:23] LABS: Troponin I 0.039 ng/mL (< 0.028)
--- NOTE | 2018-03-10 18:08 | HP ---
DATE OF ADMISSION: 03/10/2018 CHIEF COMPLAINT: Diarrhea. Admits to dialysis. HISTORY OF PRESENT ILLNESS: This is a 42-year-old young white male with a known past medical history of end-stage renal disease on hemodialysis with known history of type 2 diabetes mellitus. The chiquita ent was in his usual state of health until yesterday, he started noticing severe diarrhea of sudden o nset. He was recently admitted to the hospital for left upper arm cellulitis a month ago and was sta rted on antibiotics. After that, he was doing fine except for this sudden onset of diarrhea. He den ies eating any outside food or any evidence of food poisoning. He denies having any chest pain, no n ausea, no vomiting. He denies any abdominal pain. Denies having any back pain. No burning on passi ng urine. He does complain of severe headache and he relates that to the possibly diarrhea, but neck stiffness. No dizziness, no vomiting was noted. Patient came to the ER, he was noted to have eleva lucio potassium of 8.1 and Nephrology was consulted for emergent hemodialysis. The patient also clearl y stated that he does not want to be intubated if it comes to that stage. Right now, the patient is on BiPAP. His oxygenations were low when he came in and chest x-ray was showing signs of pulmonary e caesar. All this could be related to volume overload secondary to failed dialysis treatment. PAST MEDICAL HISTORY: 1. End-stage renal disease, on hemodialysis Friday, Friday, Friday and he goes to Dr. Pearce. 2. Left upper extremity paresis. 3. Peripheral vascular disease with ischemic left hand. 4. Hypertension. 5. Hyperlipidemia. 6. Type 2 diabetes mellitus, on insulin. 7. Coronary artery disease. PAST SURGICAL HISTORY: 1. Status post amputation of the toes in each foot. 2. Status post AV fistula placement for hemodialysis on the right. 3. Status post coronary artery bypass grafting x3. 4. Status post aortic valve replacement. 5. Status post removal of bovine graft. 6. Status post placement of subsequent removal of temporary tunneled hemodialysis catheter. CURRENT MEDICATIONS: 1. Aspirin 325 mg p.o. daily. 2. Lipitor 80 mg. 3. PhosLo. 4. Coreg 3.125 mg p.o. b.i.d. 5. Zyrtec 10 mg p.o. daily. 6. Vitamin D3 of 2000 units p.o. daily. 7. Docusate sodium. 8. Folic acid 0.8 mg p.o. daily. 9. Humalog 5 units subcutaneously t.i.d. with meals. 10. [place] 5/325 mg 1 tablet p.o. q.4-6 h. fever. 11. Tresiba. 12. Probiotic. 13. Zofran. 14. Veltassa 8.4 g p.o. b.i.d. 15. Risperdal 0.25 mg p.o. at bedtime. ALLERGIES: No known drug allergies. FAMILY HISTORY: Positive for type 2 diabetes mellitus and hypertension. SOCIAL HISTORY: The patient resides at [facility] with no histor y of alcohol, no history of illicit drug use. CODE STATUS: DO NOT INTUBATE, but he says resuscitation CPR is okay and this was confirmed with the ER physician. REVIEW OF SYSTEMS: All 12 systems were reviewed with the patient thoroughly and found to be negative except the ones described in the HPI. The following complete review of systems was negative, unless otherwise mentioned in the HPI or below : Constitutional: Weight loss or gain, ability to conduct usual activities. Skin: Rash, itching. Eyes: Double vision, pain. ENT/Mouth: Nose bleeding, neck stiffness, pain, tenderness. Cardiovas cular: Palpitations, dyspnea on exertion, orthopnea. Respiratory: Shortness of breath, wheezing, c ough, hemoptysis, fever or night sweats. Gastrointestinal: Poor appetite, abdominal pain, heartburn , nausea, vomiting, constipation, or diarrhea. Genitourinary: Urgency, frequency, dysuria, nocturia . Musculoskeletal: Pain, swelling. Neurologic/Psychiatric: Anxiety, depression. Allergy/Immunolo gic: Skin rash, bleeding tendency. LABORATORY DATA: WBC 12.9, hemoglobin is 13.6, hematocrit 41.1, platelets 152. Sodium 137, potassium 9.5, chloride is 100, BUN is 165, creatinine is 15.72. Blood sugar is 131. T roponin 0.020. BNP is 102. Chest x-ray was done showing no evidence of any pulmonary edema was noted. ASSESSMENT: 1. Acute hyperkalemia. 2. Acute hypoxic respiratory failure. 3. Acute volume overload state. 4. End-stage renal disease, missed hemodialysis. 5. Type 2 diabetes mellitus, well-controlled. 6. History of coronary artery disease with coronary artery bypass grafting. 7. Diarrhea, likely rule out Clostridium difficile PLAN: 1. To closely monitor this patient. This time, the patient would need emergent dialysis and would n eed ICU admissions as a high risk for cardiac arrest. Critical Care has been informed by the ER guero last. We will closely monitor at this time. The patient received 30 grams of Kayexalate times and also 10 mg of albuterol inhalation and which was spiking the heart rate even higher. 2. The patient has severe diarrhea 3 to 4 times a day, most likely antibiotic associated diarrhea or he could have a Clostridium difficile infection. We will send the C. diff toxin assay for a stool s ample and we will do stool cultures. If it is positive, we will need to start the patient on Flagyl and p.o. vancomycin. 3. Patient has type 2 diabetes mellitus, well-controlled. We will continue the patient on home medi cations. We will closely monitor the patient. 4. Hypoxic respiratory failure, likely from volume overload state. The patient is on BiPAP and slow ly titrating down to nasal cannula. The dialysis should help his breathing better. 5. History of coronary artery disease, no evidence of any chest pain noted. We will closely monitor . His initial troponin was negative. 6. DVT prophylaxis is Lovenox 30 mg subcutaneously. I spent 75minutes with patient of this. Of this, 1-hour is critical care time.
[2018-03-10] MEDS ORDERED: Ondansetron HCl/PF 4 MG/2 ML Vial IVP PRN (19:49)
[2018-03-10] MEDS ORDERED: HYDROcodone/Acetaminophen 7.5/325 mg Tablet PO PRN (19:49)
[2018-03-10 20:20] LABS: Troponin I 0.066 ng/mL (< 0.028)
[2018-03-10] MEDS ORDERED: Prevnar 13-Val Conj/PF 0.5 ML SYRINGE IM ONE (21:00)
--- NOTE | 2018-03-10 21:46 | CON ---
DATE OF CONSULTATION: 03/10/2018 CONSULTING PHYSICIAN: Dr. Reynaga. REASON FOR CONSULTATION: Severe hyperkalemia. REASON FOR ADMISSION: Altered mentation. HISTORY OF PRESENT ILLNESS: This is a 42-year-old male with history of end- stage renal disease, peripheral vascular disease, hypertension, hyperlipidemia, type 2 diabetes who refused dialysis yesterday and shortening of treatments regularly who was brought to the hospital. He refuses medications and dialysis yesterday and this morning, he was found to be confused and was having chest pain and was brought to the hospital. His potassium was more than 9.5. No fever or chills. No nausea, vomiting. Patient is confused and not able to give a good history at this point. He was on BiPAP, he was seen in the ER. PAST MEDICAL HISTORY: Positive for end-stage renal disease, peripheral vascular disease, hypertension, hyperlipidemia, type 2 diabetes, coronary artery disease. PAST SURGICAL HISTORY: Amputations, AV fistula placement, coronary artery bypass grafting, valve replacement. HOME MEDICATIONS: Aspirin, Lipitor, Zyrtec, vitamin D3, Humalog, [place], probiotic, melatonin, Veltassa. ALLERGIES: No known drug allergies. SOCIAL HISTORY: No smoking, alcohol, or illicit drugs abuse. FAMILY HISTORY: Positive for diabetes. REVIEW OF SYSTEMS: The following complete review of systems was negative, unless otherwise mentioned in the HPI or below: Constitutional: Weight loss or gain, ability to conduct usual activities. Skin: Rash, itching. Eyes: Double vision, pain. ENT/Mouth: Nose bleeding, neck stiffness, pain, tenderness. Cardiovascular: Palpitations, dyspnea on exertion, orthopnea. Respiratory: Shortness of breath, wheezing, cough, hemoptysis, fever, or night sweats. Gastrointestinal: Poor appetite, abdominal pain, heartburn, nausea, vomiting, constipation, or diarrhea. Genitourinary: Urgency, frequency, dysuria, nocturia. Musculoskeletal: Pain, swelling. Neurologic/Psychiatric: Anxiety, depression. Allergy/Immunologic: Skin rash, bleeding tendency. PHYSICAL EXAMINATION: GENERAL: Reveals an obese male in moderate distress in BiPAP. VITAL SIGNS: Temperature 98.2, pulse 71, respiratory rate 18, blood pressure 122/78. HEENT: On BiPAP. CARDIOVASCULAR: S1, S2 heard. RESPIRATORY: Clear. GI: Abdomen soft. MUSCULOSKELETAL: 1+ edema. DERMATOLOGIC: No skin rash. NEUROLOGIC: Confused. LABORATORY DATA: Hemoglobin is 13.6, pH 7.2, potassium is 9.3, BUN is 173, creatinine is 15.7. ASSESSMENT AND PLAN: 1. End-stage renal disease on hemodialysis. Plan is to have continue dialysis. Patient's dialysis nurse notified and patient will be getting emergent dialysis. Patient was seen during dialysis. 1a. Severe hyperkalemia - will have emergent dialysis. Use 2K bath. Limit K in diet. 2. Uremia with elevated BUN. 3. Severe acidosis. 4. Anemia. Hemoglobin is stable. 5. Hypertension. 6. Obesity. 5. No noncompliance. 7. Continue low-potassium diet. We will check labs in the morning. Continue on dialysis as tolerated. Patient is tolerating dialysis well so far. MTDD
[2018-03-10] MEDS: Famotidine 40 MG/4 ML VIAL SLOW IVP SCH (22:07)
--- NOTE | 2018-03-11 01:45 | CON ---
DATE OF CONSULTATION: 03/10/2018 HISTORY OF PRESENT ILLNESS: Mr. Tolbert is a 42-year-old male. I am told he has a history of mar ginal compliance with dialysis. He actually was discharged here 02/06 with a diagnosis of a left upp er extremity cellulitis, end-stage renal disease. He had bacteremia reportedly secondary to dialysis line sepsis on that admission. He apparently declined new access placement during that hospitalizat ion. It was recommended he received 2 weeks of antibiotics and then go back to his physician at [facility] for further graft evaluation. By my exam, he still has a tunnel catheter and that appear s to be old. When I evaluated him in the room, his only complaint was he was cold, he wanted to be c overed, he was shivering. He says he did not go to dialysis yesterday because he had diarrhea. His potassium today was almost 9. PAST MEDICAL HISTORY: Also remarkable for hypertension, diabetes, lipid disorder, history of coronar y artery disease, history of bypass grafting x3, history of vascular access placement, history of mul tiple toe amputations, history of aortic valve replacement, history of multiple vascular access proce dures. MEDICATIONS: Prior to admission, he has been on aspirin, Lipitor, PhosLo, Coreg, Zyrtec, vitamin D, folate, insulin, [place], Tresiba, Veltassa, Risperdal. SOCIAL HISTORY: He lives in [facility], apparently nonsmoker, nondrinker. FAMILY HISTORY: Positive for diabetes and hypertension. REVIEW OF SYSTEMS: Ten points otherwise negative. PHYSICAL EXAMINATION: VITAL SIGNS: His heart rate is 97, blood pressure 105/78, respiratory rates in the teens. GENERAL: He has BiPAP on. He is being emergently dialyzed. LUNGS: Clear. He has a big scar from his sternotomy for his bypass. HEART: Regular rhythm. ABDOMEN: Soft and nontender. EXTREMITIES: No clubbing, cyanosis, or edema. LABORATORY DATA: White count 12.9, hemoglobin 13.6, platelets 152. Protime is 15.2. PH 7.21, CO2 o f 43, pO2 of 184. Sodium 138, potassium 9.3, chloride 101, bicarbonate 11, BUN 172, creatinine 15.7. I was asked the dialysis physician be sure the dialysis nurse draw blood cultures on him. IMPRESSION: 1. Noncompliance with dialysis because of diarrhea. 2. Life threatening hyperkalemia with metabolic acidosis secondary to missed dialysis. 3. Recent history of bacteremia felt to be of line origin. It should be cultured and then receive p rophylactic antimicrobial therapy. He had MRSA from the finger in January. He had one blood culture t hat was negative on 01/29. Coag negative staff that was from one blood culture from the . He has had blood cultures in last fall with Pseudomonas in July and Pseudomonas in August. Once his dialysis is over, he should be able to be weaned from noninvasive ventilatory support. Compliance is imperative given his multiple complicated medical problems. He does not need to be int ubated at this point of time in my opinion. CRITICAL CARE TIME: Thirty minutes.
[2018-03-11 05:36] LABS: #Basophils 0.1 thou/uL (0.0-0.2); #Eosinphils 0.1 thou/uL (0.0-0.7); #Lymphocytes 1.3 thou/uL (1.20-3.40); #Monocytes 0.8 thou/uL (0.11-0.59); #Neutrophils 7.4 thou/uL (1.40-6.50); %Basophils 0.8 % (0.0-1.0); %Eosinophils 1.2 % (0.0-10.0); %Lymphocytes 13.8 % (21.0-51.0); %Monocytes 8.4 % (0.0-10.0); %Neutrophils 75.8 % (42.0-75.0); Hemoglobin 11.5 g/dL (14.0-18.0); Mean Corpuscular HGB CONC 33.5 g/dL (32.0-36.0); Mean Corpuscular Volume 92.6 fl (80.0-94.0); Mean Platelet Volume 9.1 fL (7.4-10.4); Platelet Count 129 thou/uL (130-400); RBC Distribution Width 15.1 % (11.5-14.5); Red Blood Cell (RBC) Count 3.72 mill/uL (4.70-6.10); White Blood Cell (WBC) Count 9.7 thou/uL (4.8-10.8)
[2018-03-11 05:51] LABS: Anion Gap 24 mmol/L (10-20); BUN (Urea Nitrogen) 99 mg/dL (8.9-20.6); Calc. Creatinine Clearance 18 mL/min (70-130); Calcium 8.3 mg/dL (7.8-10.44); Carbon Dioxide 21 mmol/L (22-29); Chloride 99 mmol/L (98-107); Estimated GFR-MDRD 5; Glucose 150 mg/dL (70-105); Potassium 5.6 mmol/L (3.5-5.1); Sodium 138 mmol/L (136-145)
[2018-03-11 07:06] LABS: Base Excess-Venous -13.1 mmol/L (0 (+/- 2.5)); CO2 Tension (PvCO2) 47.1 mmHg (41.0-51.0); Calcium, Ionized 0.86 mmol/L (1.12-1.32); Hemoglobin - Calc 15.7 g/dL (12.0-18.0); T. Carbon Dioxide 17.4 mmol/L (1.0-85.0); pH (Venous) 7.138 (7.35-7.45); vO2 Saturation-calc 69.2 % (94-98)
[2018-03-11 07:20] LABS: Potassium 8.9 mmol/L (3.4-4.7)
[2018-03-11] MEDS ORDERED: Enoxaparin Sodium 30 MG/0.3 ML SYRINGE SC SCH (09:00)
[2018-03-11] MEDS ORDERED: Heparin 5,000 UNITS/ML VIAL SC SCH (10:30)
[2018-03-11] MEDS: Acetaminophen 325 MG TAB PO PRN (13:29)
--- NOTE | 2018-03-11 14:59 | PRG ---
DATE OF SERVICE: 03/11/2018 NEPHROLOGY PROGRESS NOTE SUBJECTIVE: Patient was seen and examined at bedside and overnight events noted. Patient denies any shortness of breath or chest pain or palpitation. No history of nausea or vomiting or diarrhea or f ever or chills or cramps. OBJECTIVE: GENERAL: This is an obese . VITAL SIGNS: Afebrile, pulse 92, respiratory rate 12. HEENT: Atraumatic, normocephalic. Oral mucosa is moist. NECK: Supple. CARDIOVASCULAR: S1, S2 heard. Rate and rhythm regular. RESPIRATORY: Clear to auscultation. GASTROINTESTINAL: Abdomen is soft. MUSCULOSKELETAL: No tenderness. No edema. DERMATOLOGIC: No skin rash. NEUROLOGIC: Alert and awake and oriented x3. No focal neurologic deficits. Moving all the extremiti es. PSYCHIATRIC: Mood and affect normal. LABORATORY DATA: Potassium is 5.6. ASSESSMENT AND PLAN: 1. End-stage renal disease on dialysis. Plan is to continue on dialysis as tolerated. 2. We will have dialysis for 3-4 hours today as tolerated. 3. Fluid overload fluids. 4. Uremia . 5. Hyperkalemia, continue on low potassium diet. 6. Acidosis, better, we will continue on dialysis as tolerated.
[2018-03-11] MEDS ORDERED: Acetaminophen 325 MG TAB PO PRN (15:01)
--- NOTE | 2018-03-11 15:06 | PDOC.PN ---
- Subjective Encounter Start Date: 03/11/18 Encounter Start Time: 11:00 Patient is seen today, alert and oriented. No other Concenr snoted. He is still on oxygen which he gets at [facility]. - Objective Resuscitation Status: Resuscitation Status DNI:No Intubation MAR Reviewed: Yes Vital Signs & Weight: Vital Signs (12 hours) Temp Pulse Resp Pulse Ox 03/11/18 11:00 98.0 F 03/11/18 08:00 98.6 F 92 18 99 03/11/18 07:00 98.6 F 03/11/18 06:00 98.2 F 03/11/18 04:00 98.4 F Weight Admit Weight 311 lb 4.683 oz Weight 311 lb 4.683 oz Most Recent Monitor Data Heart Rate from ECG 90 NIBP 104/71 NIBP BP-Mean 83 Respiration from ECG 18 SpO2 100 I&O: 03/10/18 03/11/18 03/12/18 06:59 06:59 06:59 Intake Total 270 345 Output Total 50 Balance 220 345 Result Diagrams: 03/11/18 04:49 03/11/18 04:49 Additional Labs: Accuchecks 03/11/18 03/11/18 03/10/18 11:36 06:35 22:12 POC Glucose 138 H 93 87 03/10/18 17:27 POC Glucose 104 Radiology Reviewed by me: Yes Phys Exam - Physical Examination HEENT: PERRLA, moist MMs Neck: no nodes, no JVD Respiratory: no wheezing, no rales Cardiovascular: no significant murmur Gastrointestinal: soft, non-tender Musculoskeletal: no edema, pulses present Neurological: non-focal, normal sensation Lymphatic: no nodes Psychiatric: normal affect, A&O x 3 Skin: normal turgor Dx/Plan (1) Acute and chronic respiratory failure Code(s): J96.20 - ACUTE AND CHR RESP FAILURE, UNSP W HYPOXIA OR HYPERCAPNIA Status: Acute Comment: Will continue to Moniotr, pt needed Bipap yesterday, he is on 4 Liers [place], will continue with Nebs. (2) CAD (coronary artery disease) Code(s): I25.10 - ATHSCL HEART DISEASE OF [place] CORONARY ARTERY W/O ANG PCTRS Status: Chronic Qualifiers: Comment: CABG 2017.on ASA,statin,BB (3) DM2 (diabetes mellitus, type 2) Status: Chronic Qualifiers: Comment: Continue Tresiba 50u sc HS, ISS (4) ESRD (end stage renal disease) on dialysis Code(s): N18.6 - END STAGE RENAL DISEASE; Z99.2 - DEPENDENCE ON RENAL DIALYSIS Status: Chronic Comment: HD per Renal service, completed maintenance HD 01/30 (5) Hyperkalemia, diminished renal excretion Code(s): E87.5 - HYPERKALEMIA Status: Chronic Comment: Resolved after two back to back HD. (6) Obesity (BMI 30-39.9) Code(s): E66.9 - OBESITY, UNSPECIFIED Status: Chronic (7) PVD (peripheral vascular disease) Code(s): I73.9 - PERIPHERAL VASCULAR DISEASE, UNSPECIFIED Status: Chronic Comment: Continue ASA 325mg daily - Plan cont current plan of care, PT/OT, social worker health services, respiratory therapy, incentive spirometry, DVT proph w/heparin * . - Discharge Day Encounter end time: 11:35 Review of Systems - Review of Systems Eyes: negative: Pain, Vision Change, Conjunctivae Inflammation, Eyelid Inflammation, Redness, Other ENT: negative: Ear Pain, Ear Discharge, Nose Pain, Nose Discharge, Nose Congestion, Mouth Pain, Mouth Swelling, Throat Pain, Throat Swelling, Other Respiratory: negative: Cough, Dry, Shortness of Breath, Hemoptysis, SOB with Excertion, Pleuritic Pain, Sputum, Wheezing Cardiovascular: negative: chest pain, palpitations, orthopnea, paroxysmal nocturnal dyspnea, edema, light headedness, other Gastrointestinal: negative: Nausea, Vomiting, Abdominal Pain, Diarrhea, Constipation, Melena, Hematochezia, Other Musculoskeletal: negative: Neck Pain, Shoulder Pain, Arm Pain, Back Pain, Hand Pain, Leg Pain, Foot Pain, Other Skin: negative: Rash, Lesions, Km, Bruising, Other - Medications/Allergies Allergies/Adverse Reactions: Allergies Allergy/AdvReac Type Severity Reaction Status Date / Time No Known Allergies Allergy Verified 07/15/17 02:05 Medications: Current Medications Acetaminophen (Tylenol) 650 mg PO Q4H PRN PRN Reason: Headache/Fever or Pain Last Admin: 03/11/18 13:29 Dose: 650 mg Acetaminophen (Tylenol) 650 mg PO Q4HR PRN PRN Reason: Pain Hydrocodone Bitart/Acetaminophen ([place] 7.5/325) 1 tab PO Q4H PRN PRN Reason: Moderate Pain (4-6) Hydrocodone Bitart/Acetaminophen ([place] 5/325) 1 tab PO Q4HR PRN PRN Reason: Pain Aspirin (Aspirin) 325 mg PO DAILY [facility] Calcium Acetate (Phoslo) 1,334 mg PO BID-WM [facility] Carvedilol (Coreg) 3.125 mg PO BID [facility] Cetirizine HCl (Zyrtec) 10 mg PO DAILY [facility] Famotidine (Pepcid) 20 mg SLOW IVP Q24HR [facility] Last Admin: 03/10/18 22:07 Dose: 20 mg Heparin Sodium (Porcine) (Heparin) 5,000 units SC BID [facility] Insulin Human Lispro (Humalog) units SC TID-WM [facility] Melatonin (Melatonin) 3 mg PO HS [facility] Metoprolol Tartrate (Lopressor) 5 mg IVP Q6H PRN PRN Reason: HR > 110 Non-Formulary Medication (Atorvastatin Calcium [Atorvastatin Calcium]) 80 mg PO HS [facility] Non-Formulary Medication (Cholecalciferol (Vitamin D3) [Vitamin D3]) 2,000 unit PO DAILY [facility] Non-Formulary Medication (Insulin Degludec [Tresiba Flextouch U-100]) 50 unit SQ HS [facility] Non-Formulary Medication (L. Acidophilus/Pectin, [place] [Acidophilus Probiotic Capsule]) 1 cap PO TID [facility] Non-Formulary Medication (Lanthanum Carbonate [Fosrenol]) 1,000 mg PO TID-WM [facility] Non-Formulary Medication (Patiromer Calcium Sorbitex [Veltassa]) 8.4 gm PO DAILY [facility] Ondansetron HCl (Zofran) 4 mg IVP Q6H PRN PRN Reason: Nausea/Vomiting Ondansetron HCl (Zofran Odt) 4 mg PO Q6HR PRN PRN Reason: Nausea/Vomiting Risperidone (Risperidone) 0.25 mg PO HS [facility] Vitamin B Complex/Vit C/Folic Acid (Nephro-Anel Tablet) tab PO DAILY [facility]
[2018-03-11] MEDS: Calcium Acetate 667 MG CAP PO SCH (16:50)
[2018-03-11] MEDS: HumaLOG 300 UNITS/3 ML VIAL SC SCH (16:51)
[2018-03-11] MEDS ORDERED: HumaLOG 300 UNITS/3 ML VIAL SC SCH (17:00)
--- NOTE | 2018-03-11 18:10 | PRG ---
DATE OF SERVICE: 03/11/2018 SUBJECTIVE: Mr. Tolbert has no complaints. Blood cultures from yesterday are negative. Urine culture is negative. He is in no distress. OBJECTIVE: VITAL SIGNS: Heart rates in the 80s, blood pressure 125/85, respiratory rate is 18, oximetry is 99. LUNGS: Clear. HEART: Regular rhythm. ABDOMEN: Soft and nontender. EXTREMITIES: Without asymmetry. LABORATORY DATA: White count 9.7, hemoglobin 11.5, platelets 129. Sodium 138, potassium 5.6, chloride 99, bicarbonate 21, BUN 99, creatinine 10.5. IMPRESSION: 1. Hyperkalemia, status post emergent dialysis. 2. Noncompliance with scheduled dialysis this week. 3. End-stage renal disease. 4. History of dialysis catheter infection with negative blood cultures. Blood cultures were done du ring dialysis. It is not clear to me whether or not antibiotics were given in the emergency room bef ore he came upstairs. 5. History of diabetes. 6. Hypertension. 7. Morbid obesity. 8. History of coronary artery bypass grafting. 9. History of multiple toe amputations. 10. History of aortic valve replacement. PLAN: Continue supportive care. He could transfer out of the Critical Care Unit in my opinion.
[2018-03-11] MEDS: risperiDONE 0.25 MG TAB PO SCH (20:18)
[2018-03-11] MEDS: Atorvastatin Calcium 40 MG TAB PO SCH (20:18)
[2018-03-11] MEDS: Melatonin 3 MG TAB PO SCH (20:19)
[2018-03-11] MEDS: Famotidine 40 MG/4 ML VIAL SLOW IVP SCH (20:22)
[2018-03-11] MEDS: Heparin 5,000 UNITS/ML VIAL SC SCH (20:22)
[2018-03-11] MEDS: Carvedilol 3.125 MG TAB PO SCH (20:22)
[2018-03-11] MEDS: Lactinex Tablet PO SCH (20:23)
[2018-03-11] MEDS ORDERED: TRESIBA INSULIN SC SCH (21:00)
[2018-03-11] MEDS ORDERED: Non-Formulary Item 1 EACH (Atorvastatin Calcium [Atorvastatin Calcium] 80 MG) PO SCH (21:00)
[2018-03-12 05:52] LABS: Anion Gap 20 mmol/L (10-20); BUN (Urea Nitrogen) 58 mg/dL (8.9-20.6); Calc. Creatinine Clearance 24 mL/min (70-130); Calcium 9.3 mg/dL (7.8-10.44); Carbon Dioxide 24 mmol/L (22-29); Chloride 97 mmol/L (98-107); Estimated GFR-MDRD 8; Glucose 127 mg/dL (70-105); Sodium 136 mmol/L (136-145)
[2018-03-12] MEDS: HumaLOG 300 UNITS/3 ML VIAL SC SCH ×3 (08:57→16:50)
[2018-03-12] MEDS: Ondansetron ODT 4 MG TAB PO PRN (08:58)
[2018-03-12] MEDS: Folic Acid/Vit B Comp W-C PO SCH (08:58)
[2018-03-12] MEDS: Lactinex Tablet PO SCH ×3 (08:58→21:01)
[2018-03-12] MEDS: Calcium Acetate 667 MG CAP PO SCH ×2 (08:58→16:51)
[2018-03-12] MEDS: Aspirin 325 MG TAB PO SCH (08:59)
[2018-03-12] MEDS: Heparin 5,000 UNITS/ML VIAL SC SCH ×2 (08:59→21:01)
[2018-03-12] MEDS: Loratadine 10 MG TAB PO SCH (08:59)
[2018-03-12] MEDS: Carvedilol 3.125 MG TAB PO SCH ×2 (08:59→21:01)
[2018-03-12] MEDS ORDERED: Cetirizine HCl 10 MG TAB PO SCH (09:00)
[2018-03-12] MEDS ORDERED: Folic Acid/Vit B Comp W-C PO SCH (09:00)
[2018-03-12] MEDS: Lanthanum Carbonate 500 mg Tablet PO SCH ×3 (09:22→16:50)
[2018-03-12] MEDS: Patiromer Calcium Sorbitex [Veltassa] 8.4 GM PO SCH (09:23)
--- NOTE | 2018-03-12 12:08 | PRG ---
DATE OF SERVICE: 03/12/2018 NEPHROLOGY PROGRESS NOTE SUBJECTIVE: Patient was seen and examined at bedside and overnight events noted. Patient denies any shortness of breath or chest pain or palpitation. No history of nausea or vomiting or diarrhea or f ever or chills or cramps. OBJECTIVE: GENERAL: This is a morbidly obese white male in no apparent distress. VITAL SIGNS: Temperature 97.8, pulse 85, respiratory rate 18, blood pressure 113/67. HEENT: Atraumatic, normocephalic. Oral mucosa is moist. NECK: Supple. CARDIOVASCULAR: S1, S2 heard. Rate and rhythm regular. RESPIRATORY: Clear to auscultation. GASTROINTESTINAL: Abdomen is soft. MUSCULOSKELETAL: No tenderness. No edema. DERMATOLOGIC: No skin rash. NEUROLOGIC: Alert and awake and oriented x3. No focal neurologic deficits. Moving all the extremiti es. PSYCHIATRIC: Mood and affect normal. LABORATORY DATA: Potassium is 5.0, BUN is 58, and creatinine is 7.7. ASSESSMENT AND PLAN: 1. End-stage renal disease. We will continue on hemodialysis as tolerated. 2. Fluid overload, advised to limit fluid intake. 3. Uremia, better. 4. Hyperkalemia. We will continue on dialysis. 5. Metabolic acidosis, much better. 6. Anemia. 7. We will check for hemodialysis. He continues to be hyperkalemic despite adequate dialysis, most likely some even though hemoglobin is stable. We will check LDH and haptoglobin and we will fo llow.
--- NOTE | 2018-03-12 15:06 | PRG ---
DATE OF SERVICE: 03/12/2018 SUBJECTIVE: Mr. Tolbert is afebrile. OBJECTIVE: VITAL SIGNS: Heart rate is 86, respiratory rate is 18, oximetry is 98 on 2 liters, blood pressure 13 5/96. LUNGS: Unchanged. HEART: Unchanged. ABDOMEN: Unchanged. LABORATORY DATA: Potassium today is 5, BUN is 58, creatinine 7.7. Glucoses have all been less than 155. IMPRESSION: 1. Noncompliant with dialysis, presenting with potassium of 9, status post emergent dialysis. 2. History of dialysis access infection. Blood cultures are negative at 48 hours. 3. Obesity. 4. End-stage renal disease with a tunneled catheter in his right back. 5. Hypertension. 6. History of coronary artery disease with bypass grafting in the past. 7. Peripheral vascular disease. 8. History of an aortic valve replacement. PLAN: Continue per the digital editor. He is stable from a pulmonary standpoint on the telemetry unit . We will sign off.
--- NOTE | 2018-03-12 15:09 | PDOC.PN ---
- Subjective Encounter Start Date: 03/12/18 Encounter Start Time: 13:00 Patient is seen wilfrid, alert and oriened. he Feels he is still very weak and not able to stand on his Feet. Pt is Admitted with Hyperkalemia. - Objective Resuscitation Status: Resuscitation Status DNI:No Intubation MAR Reviewed: Yes Vital Signs & Weight: Vital Signs (12 hours) Temp Pulse Pulse Pulse Resp BP BP 03/12/18 12:45 98.8 F 86 18 03/12/18 09:32 85 135/96 H 03/12/18 08:49 86 86 124/73 135/82 03/12/18 08:05 98.3 F 86 18 03/12/18 04:33 97.8 F 85 18 BP BP Pulse Ox Pulse Ox Pulse Ox 03/12/18 12:45 118/60 98 03/12/18 09:32 96 03/12/18 08:49 100 100 03/12/18 08:05 98 03/12/18 04:33 130/67 100 Weight Admit Weight 311 lb 4.683 oz Weight 299 lb 6.4 oz Most Recent Monitor Data Heart Rate from ECG 97 NIBP 158/98 NIBP BP-Mean 112 Respiration from ECG 18 SpO2 93 I&O: 03/11/18 03/12/18 03/13/18 06:59 06:59 06:59 Intake Total 270 811 Output Total 50 100 Balance 220 711 Result Diagrams: 03/11/18 04:49 03/12/18 05:12 Additional Labs: Accuchecks 03/12/18 03/12/18 03/11/18 12:17 05:38 21:08 POC Glucose 155 H 125 H 153 H 03/11/18 16:39 POC Glucose 127 H Radiology Reviewed by me: Yes Phys Exam - Physical Examination HEENT: PERRLA, moist MMs Neck: no nodes, no JVD Respiratory: no wheezing, no rales Cardiovascular: RRR, no significant murmur Gastrointestinal: soft, non-tender Musculoskeletal: no edema, pulses present Neurological: non-focal, normal sensation Lymphatic: no nodes Psychiatric: normal affect Dx/Plan (1) Acute and chronic respiratory failure Code(s): J96.20 - ACUTE AND CHR RESP FAILURE, UNSP W HYPOXIA OR HYPERCAPNIA Status: Acute Comment: Will continue to Moniotr, he is on 4 Liers [place], will continue with Nebs. (2) CAD (coronary artery disease) Code(s): I25.10 - ATHSCL HEART DISEASE OF [place] CORONARY ARTERY W/O ANG PCTRS Status: Chronic Qualifiers: Comment: CABG 2017.on ASA,statin,BB (3) DM2 (diabetes mellitus, type 2) Status: Chronic Qualifiers: Comment: Continue Tresiba 50u sc HS, ISS (4) ESRD (end stage renal disease) on dialysis Code(s): N18.6 - END STAGE RENAL DISEASE; Z99.2 - DEPENDENCE ON RENAL DIALYSIS Status: Chronic Comment: @ consecutive HD, No HD today, pt still has mild Elevation of potassium. (5) Hyperkalemia, diminished renal excretion Code(s): E87.5 - HYPERKALEMIA Status: Chronic Comment: Resolved after two back to back HD. (6) Obesity (BMI 30-39.9) Code(s): E66.9 - OBESITY, UNSPECIFIED Status: Chronic (7) PVD (peripheral vascular disease) Code(s): I73.9 - PERIPHERAL VASCULAR DISEASE, UNSPECIFIED Status: Chronic Comment: Continue ASA 325mg daily - Plan cont current plan of care, plan discussed w/ family, PT/OT, respiratory therapy , incentive spirometry, out of bed/ambulate, DVT proph w/heparin * . - Discharge Day Encounter end time: 13:30 Review of Systems - Review of Systems Constitutional: weakness, malaise Eyes: negative: Pain, Vision Change, Conjunctivae Inflammation, Eyelid Inflammation, Redness, Other ENT: negative: Ear Pain, Ear Discharge, Nose Pain, Nose Discharge, Nose Congestion, Mouth Pain, Mouth Swelling, Throat Pain, Throat Swelling, Other Respiratory: negative: Cough, Dry, Shortness of Breath, Hemoptysis, SOB with Excertion, Pleuritic Pain, Sputum, Wheezing Cardiovascular: negative: chest pain, palpitations, orthopnea, paroxysmal nocturnal dyspnea, edema, light headedness, other Gastrointestinal: negative: Nausea, Vomiting, Abdominal Pain, Diarrhea, Constipation, Melena, Hematochezia, Other Genitourinary: negative: Dysuria, Frequency, Incontinence, Hematuria, Retention , Other Musculoskeletal: negative: Neck Pain, Shoulder Pain, Arm Pain, Back Pain, Hand Pain, Leg Pain, Foot Pain, Other Skin: negative: Rash, Lesions, Km, Bruising, Other Neurological: negative: Weakness, Numbness, Incoordination, Change in Speech, Confusion, Seizures, Other - Medications/Allergies Allergies/Adverse Reactions: Allergies Allergy/AdvReac Type Severity Reaction Status Date / Time No Known Allergies Allergy Verified 07/15/17 02:05 Medications: Current Medications Acetaminophen (Tylenol) 650 mg PO Q4H PRN PRN Reason: Headache/Fever or Pain Last Admin: 03/11/18 13:29 Dose: 650 mg Acetaminophen (Tylenol) 650 mg PO Q4H PRN PRN Reason: Pain Hydrocodone Bitart/Acetaminophen ([place] 7.5/325) 1 tab PO Q4H PRN PRN Reason: Moderate Pain (4-6) Hydrocodone Bitart/Acetaminophen ([place] 5/325) 1 tab PO Q4H PRN PRN Reason: Pain Acidophilus (Floranex) 1 tab PO TID [facility] Last Admin: 03/12/18 08:58 Dose: 1 tab Aspirin (Aspirin) 325 mg PO DAILY [facility] Last Admin: 03/12/18 08:59 Dose: 325 mg Atorvastatin Calcium (Lipitor) [address] [facility] Last Admin: 03/11/18 20:18 Dose: 80 mg Calcium Acetate (Phoslo) 1,334 mg PO BID-[facility] Last Admin: 03/12/18 08:58 Dose: 1,334 mg Carvedilol (Coreg) 3.125 mg PO BID [facility] Last Admin: 03/12/18 08:59 Dose: 3.125 mg Cholecalciferol (Vitamin D3) 2,000 units PO DAILY [facility] Last Admin: 03/12/18 08:58 Dose: 2,000 units Famotidine (Pepcid) 20 mg SLOW IVP Q24HR [facility] Last Admin: 03/11/18 20:22 Dose: 20 mg Heparin Sodium (Porcine) (Heparin) 5,000 units SC BID [facility] Last Admin: 03/12/18 08:59 Dose: 5,000 units Insulin Human Lispro (Humalog) 5 units SC TID-[facility] Last Admin: 03/12/18 12:50 Dose: 5 unit Lanthanum Carbonate (Fosrenol) 1,000 mg PO TID-[facility] Last Admin: 03/12/18 12:50 Dose: 1,000 mg Loratadine (Claritin) 10 mg PO DAILY [facility] Last Admin: 03/12/18 08:59 Dose: 10 mg Melatonin (Melatonin) 3 mg PO HS [facility] Last Admin: 03/11/18 20:19 Dose: Not Given Metoprolol Tartrate (Lopressor) 5 mg IVP Q6H PRN PRN Reason: HR > 110 Ondansetron HCl (Zofran) 4 mg IVP Q6H PRN PRN Reason: Nausea/Vomiting Ondansetron HCl (Zofran Odt) 4 mg PO Q6H PRN PRN Reason: Nausea/Vomiting Last Admin: 03/12/18 08:58 Dose: 4 mg Patient Own Medication (Patient's Home Medication) 0 each SC HS [facility] Patiromer Calcium Sorbitex [Veltassa] 8.4 Gm 0 each PO DAILY [facility] Last Admin: 03/12/18 09:23 Dose: Not Given Risperidone (Risperidone) 0.25 mg PO HS [facility] Last Admin: 03/11/18 20:18 Dose: 0.25 mg Sodium Chloride (Flush - Normal Saline) 10 ml IVF Q12HR [facility] Last Admin: 03/12/18 09:00 Dose: 10 ml Sodium Chloride (Flush - Normal Saline) 10 ml IVF PRN PRN PRN Reason: Saline Flush Vitamin B Complex/Vit C/Folic Acid (Nephro-Anel Tablet) 1 tab PO DAILY [facility] Last Admin: 03/12/18 08:58 Dose: 1 tab
[2018-03-12] MEDS: risperiDONE 0.25 MG TAB PO SCH (21:01)
[2018-03-12] MEDS: Atorvastatin Calcium 40 MG TAB PO SCH (21:01)
[2018-03-12] MEDS: Melatonin 3 MG TAB PO SCH (21:02)
[2018-03-12] MEDS: Famotidine 40 MG/4 ML VIAL SLOW IVP SCH (21:11)
[2018-03-12] MEDS: HYDROcodone/Acetaminophen 5/325 mg Tablet PO PRN (21:15)
[2018-03-12] MEDS ORDERED: Famotidine 20 MG TAB PO SCH (21:15)
[2018-03-13 05:17] LABS: Reticulocyte Count 1.8 % (0.5-1.5)
[2018-03-13 05:31] LABS: ALT (SGPT) 27 U/L (8-55); AST (SGOT) 19 U/L (5-34); Albumin 3.8 g/dL (3.5-5.0); Alkaline Phosphatase 128 U/L (40-150); Anion Gap 23 mmol/L (10-20); BUN (Urea Nitrogen) 89 mg/dL (8.9-20.6); Bilirubin, Total 0.4 mg/dL (0.2-1.2); Calc. Creatinine Clearance 19 mL/min (70-130); Calcium 9.4 mg/dL (7.8-10.44); Carbon Dioxide 22 mmol/L (22-29); Chloride 97 mmol/L (98-107); Estimated GFR-MDRD 6; Glucose 116 mg/dL (70-105); Potassium 5.6 mmol/L (3.5-5.1); Protein, Total 6.8 g/dL (6.0-8.3); Sodium 136 mmol/L (136-145)
--- NOTE | 2018-03-13 09:48 | PRG ---
DATE OF SERVICE: 03/13/2018 SUBJECTIVE: Patient was seen and examined at bedside and overnight events noted. Patient denies any shortness of breath or chest pain or palpitation. No history of nausea or vomiting or diarrhea or f ever or chills or cramps. OBJECTIVE: GENERAL: This is a well-built male in no apparent distress. VITAL SIGNS: Temperature 97.8, pulse 80, respirations 16, blood pressure 135/71. HEENT: Atraumatic, normocephalic. Oral mucosa is moist. NECK: Supple. CARDIOVASCULAR: S1, S2 heard. Rate and rhythm regular. RESPIRATORY: Clear to auscultation. GASTROINTESTINAL: Abdomen is soft. MUSCULOSKELETAL: No tenderness, no edema. DERMATOLOGIC: No skin rash. NEUROLOGIC: Alert and awake and oriented x3. No focal neurologic deficits. Moving all the extremit ies. PSYCHIATRIC: Mood and affect normal. LABORATORY DATA: Potassium is 5.6, BUN is 89, creatinine is 10.07. Hemoglobin is 11.5, platelet cou nt is 128. Total bilirubin 0.4. LDH is 167. ASSESSMENT AND PLAN: 1. End-stage renal disease. Continue on hemodialysis Friday, Friday, and Friday. We will have d ialysis. 2. Hyperkalemia. Limit potassium in the diet and LDH is normal and no signs of hemodialysis. 3. Uremia. 4. Metabolic acidosis. 5. Anemia.
[2018-03-13] MEDS: Patiromer Calcium Sorbitex [Veltassa] 8.4 GM PO SCH (10:11)
[2018-03-13] MEDS ORDERED: Heparin 1,000 UNITS/ML VIAL ONE (11:11)
[2018-03-13] MEDS: HumaLOG 300 UNITS/3 ML VIAL SC SCH ×3 (12:51→16:42)
[2018-03-13] MEDS: Calcium Acetate 667 MG CAP PO SCH ×2 (12:51→16:37)
[2018-03-13] MEDS: Lanthanum Carbonate 500 mg Tablet PO SCH ×3 (12:51→16:37)
[2018-03-13] MEDS: Lactinex Tablet PO SCH ×3 (12:52→22:42)
[2018-03-13] MEDS: Aspirin 325 MG TAB PO SCH (13:23)
[2018-03-13] MEDS: Carvedilol 3.125 MG TAB PO SCH ×2 (13:24→22:48)
[2018-03-13] MEDS: Heparin 5,000 UNITS/ML VIAL SC SCH ×2 (13:24→22:43)
[2018-03-13] MEDS: Loratadine 10 MG TAB PO SCH (13:24)
[2018-03-13] MEDS: Folic Acid/Vit B Comp W-C PO SCH (13:24)
--- NOTE | 2018-03-13 16:16 | PDOC.PN ---
- Subjective Encounter Start Date: 03/13/18 Encounter Start Time: 13:00 Patient is seen today, in HD, he is still very weak, he is admitted with hyperkalemia, with persistant high potassium. he is Now C/o complianing of Body weakness. - Objective Resuscitation Status: Resuscitation Status DNI:No Intubation MAR Reviewed: Yes Vital Signs & Weight: Vital Signs (12 hours) Temp Pulse Resp BP Pulse Ox 03/13/18 08:00 97.8 F 80 16 98 03/13/18 07:51 97.8 F 80 16 135/71 98 Weight Admit Weight 311 lb 4.683 oz Weight 301 lb 14.4 oz Most Recent Monitor Data Heart Rate from ECG 97 NIBP 158/98 NIBP BP-Mean 112 Respiration from ECG 18 SpO2 93 I&O: 03/12/18 03/13/18 03/14/18 06:59 06:59 06:59 Intake Total 811 726 Output Total 100 50 Balance 711 676 Result Diagrams: 03/11/18 04:49 03/13/18 05:01 Additional Labs: Accuchecks 03/13/18 03/13/18 03/12/18 11:11 06:30 20:53 POC Glucose 116 H 132 H 155 H 03/12/18 16:36 POC Glucose 121 H Radiology Reviewed by me: Yes Phys Exam - Physical Examination HEENT: PERRLA, moist MMs Neck: no nodes, no JVD Respiratory: no wheezing, no rales Cardiovascular: RRR, no significant murmur Gastrointestinal: soft, non-tender Musculoskeletal: no edema Neurological: non-focal Dx/Plan (1) Acute and chronic respiratory failure Code(s): J96.20 - ACUTE AND CHR RESP FAILURE, UNSP W HYPOXIA OR HYPERCAPNIA Status: Acute Comment: Will continue to Moniotr, he is on 4 Liers [place], will continue with Nebs. (2) CAD (coronary artery disease) Code(s): I25.10 - ATHSCL HEART DISEASE OF [place] CORONARY ARTERY W/O ANG PCTRS Status: Chronic Qualifiers: Comment: CABG 2017.on ASA,statin,BB (3) DM2 (diabetes mellitus, type 2) Status: Chronic Qualifiers: Comment: Continue Tresiba 50u sc HS, ISS (4) ESRD (end stage renal disease) on dialysis Code(s): N18.6 - END STAGE RENAL DISEASE; Z99.2 - DEPENDENCE ON RENAL DIALYSIS Status: Chronic Comment: @ consecutive HD, No HD today, pt still has mild Elevation of potassium. (5) Hyperkalemia, diminished renal excretion Code(s): E87.5 - HYPERKALEMIA Status: Chronic Comment: persistant after three back to back HD. pt has likely hemolysis, elevated Retic count, Will check Bili, LDH,Haptoglobulin, peripheral smear (6) Obesity (BMI 30-39.9) Code(s): E66.9 - OBESITY, UNSPECIFIED Status: Chronic (7) PVD (peripheral vascular disease) Code(s): I73.9 - PERIPHERAL VASCULAR DISEASE, UNSPECIFIED Status: Chronic Comment: Continue ASA 325mg daily - Plan cont current plan of care, social media marketing specialist, respiratory therapy, incentive spirometry, DVT proph w/heparin * . - Discharge Day Encounter end time: 13:30 Review of Systems - Review of Systems Constitutional: weakness, malaise Eyes: negative: Pain, Vision Change, Conjunctivae Inflammation, Eyelid Inflammation, Redness, Other ENT: negative: Ear Pain, Ear Discharge, Nose Pain, Nose Discharge, Nose Congestion, Mouth Pain, Mouth Swelling, Throat Pain, Throat Swelling, Other Respiratory: negative: Cough, Dry, Shortness of Breath, Hemoptysis, SOB with Excertion, Pleuritic Pain, Sputum, Wheezing Cardiovascular: negative: chest pain, palpitations, orthopnea, paroxysmal nocturnal dyspnea, edema, light headedness, other Gastrointestinal: negative: Nausea, Vomiting, Abdominal Pain, Diarrhea, Constipation, Melena, Hematochezia, Other Musculoskeletal: Back Pain Skin: negative: Rash, Lesions, Km, Bruising, Other Neurological: Weakness - Medications/Allergies Allergies/Adverse Reactions: Allergies Allergy/AdvReac Type Severity Reaction Status Date / Time No Known Allergies Allergy Verified 07/15/17 02:05 Medications: Current Medications Acetaminophen (Tylenol) 650 mg PO Q4H PRN PRN Reason: Headache/Fever or Pain Last Admin: 03/11/18 13:29 Dose: 650 mg Acetaminophen (Tylenol) 650 mg PO Q4H PRN PRN Reason: Pain Hydrocodone Bitart/Acetaminophen ([place] 7.5/325) 1 tab PO Q4H PRN PRN Reason: Moderate Pain (4-6) Hydrocodone Bitart/Acetaminophen ([place] 5/325) 1 tab PO Q4H PRN PRN Reason: Pain Last Admin: 03/12/18 21:15 Dose: 1 tab Acidophilus (Floranex) 1 tab PO TID [facility] Last Admin: 03/13/18 15:33 Dose: 1 tab Aspirin (Aspirin) 325 mg PO DAILY [facility] Last Admin: 03/13/18 13:23 Dose: 325 mg Atorvastatin Calcium (Lipitor) 80 mg PO HS [facility] Last Admin: 03/12/18 21:01 Dose: 80 mg Calcium Acetate (Phoslo) 1,334 mg PO BID-[facility] Last Admin: 03/13/18 12:51 Dose: Not Given Carvedilol (Coreg) 3.125 mg PO BID [facility] Last Admin: 03/13/18 13:24 Dose: 3.125 mg Cholecalciferol (Vitamin D3) 2,000 units PO DAILY [facility] Last Admin: 03/13/18 13:24 Dose: 2,000 units Famotidine (Pepcid) 20 mg PO 2100 [facility] Heparin Sodium (Porcine) (Heparin) 5,000 units SC BID [facility] Last Admin: 03/13/18 13:24 Dose: 5,000 units Insulin Human Lispro (Humalog) 5 units SC TID-[facility] Last Admin: 03/13/18 13:25 Dose: 5 unit Lanthanum Carbonate (Fosrenol) 1,000 mg PO TID-[facility] Last Admin: 03/13/18 13:25 Dose: 1,000 mg Loratadine (Claritin) 10 mg PO DAILY [facility] Last Admin: 03/13/18 13:24 Dose: 10 mg Melatonin (Melatonin) 3 mg PO [facility] Last Admin: 03/12/18 21:02 Dose: Not Given Metoprolol Tartrate (Lopressor) 5 mg IVP Q6H PRN PRN Reason: HR > 110 Ondansetron HCl (Zofran) 4 mg IVP Q6H PRN PRN Reason: Nausea/Vomiting Ondansetron HCl (Zofran Odt) 4 mg PO Q6H PRN PRN Reason: Nausea/Vomiting Last Admin: 03/12/18 08:58 Dose: 4 mg Tresiba Insulin 0 each SC [facility] Patiromer Calcium Sorbitex [Veltassa] 8.4 Gm 0 each PO DAILY [facility] Last Admin: 03/13/18 10:11 Dose: Not Given Risperidone (Risperidone) 0.25 mg PO HS [facility] Last Admin: 03/12/18 21:01 Dose: 0.25 mg Sodium Chloride (Flush - Normal Saline) 10 ml IVF Q12HR [facility] Last Admin: 03/13/18 13:24 Dose: 10 ml Sodium Chloride (Flush - Normal Saline) 10 ml IVF PRN PRN PRN Reason: Saline Flush Vitamin B Complex/Vit C/Folic Acid (Nephro-Anel Tablet) 1 tab PO DAILY [facility] Last Admin: 03/13/18 13:24 Dose: 1 tab
[2018-03-13 17:27] LABS: Bilirubin, Direct 0.2 mg/dL (0.1-0.3); Bilirubin, Total 0.4 mg/dL (0.2-1.2)
[2018-03-13] MEDS: HYDROcodone/Acetaminophen 5/325 mg Tablet PO PRN (18:32)
[2018-03-13] MEDS: Famotidine 20 MG TAB PO SCH (22:41)
[2018-03-13] MEDS: Atorvastatin Calcium 40 MG TAB PO SCH (22:41)
[2018-03-13] MEDS: Melatonin 3 MG TAB PO SCH (22:41)
[2018-03-13] MEDS: risperiDONE 0.25 MG TAB PO SCH (22:42)
[2018-03-14 06:01] LABS: Anion Gap 17 mmol/L (10-20); BUN (Urea Nitrogen) 66 mg/dL (8.9-20.6); Calc. Creatinine Clearance 24 mL/min (70-130); Calcium 9.7 mg/dL (7.8-10.44); Carbon Dioxide 24 mmol/L (22-29); Chloride 100 mmol/L (98-107); Estimated GFR-MDRD 8; Glucose 142 mg/dL (70-105); Potassium 5.2 mmol/L (3.5-5.1); Sodium 136 mmol/L (136-145)
[2018-03-14] MEDS: Lanthanum Carbonate 500 mg Tablet PO SCH ×3 (08:36→17:17)
[2018-03-14] MEDS: HumaLOG 300 UNITS/3 ML VIAL SC SCH ×3 (08:36→17:15)
[2018-03-14] MEDS: Calcium Acetate 667 MG CAP PO SCH ×2 (08:36→17:17)
[2018-03-14] MEDS: Patiromer Calcium Sorbitex [Veltassa] 8.4 GM PO SCH (08:37)
[2018-03-14] MEDS: Loratadine 10 MG TAB PO SCH (08:37)
[2018-03-14] MEDS: Lactinex Tablet PO SCH ×3 (08:37→20:37)
[2018-03-14] MEDS: Folic Acid/Vit B Comp W-C PO SCH (08:37)
[2018-03-14] MEDS: Carvedilol 3.125 MG TAB PO SCH ×2 (08:37→20:37)
[2018-03-14] MEDS: Heparin 5,000 UNITS/ML VIAL SC SCH ×2 (08:37→20:36)
[2018-03-14] MEDS: Aspirin 325 MG TAB PO SCH (08:37)
[2018-03-14] MEDS ORDERED: Heparin 1,000 UNITS/ML VIAL ONE (11:11)
--- NOTE | 2018-03-14 14:10 | PRG ---
DATE OF SERVICE: 03/14/2018 SUBJECTIVE: Patient was seen and examined at bedside and overnight events noted. Patient denies any shortness of breath or chest pain or palpitation. No history of nausea or vomiting or diarrhea or f ever or chills or cramps. OBJECTIVE: GENERAL: This is an obese male, in no apparent distress. VITAL SIGNS: Temperature 98.7, pulse 81, respiratory rate 18. Blood pressure 128/65. HEENT: Atraumatic, normocephalic, Oral mucosa is moist. NECK: Supple. CARDIOVASCULAR: S1, S2 heard. Rate and rhythm regular. RESPIRATORY: Clear to auscultation. GASTROINTESTINAL: Abdomen is soft. MUSCULOSKELETAL: No tenderness, No edema. DERMATOLOGIC: No skin rash. NEUROLOGIC: Alert and awake and oriented X3. No focal neurologic deficits. Moving all the extremit ies. PSYCHIATRIC: Mood and affect normal. LABORATORY DATA: Potassium 5.2, BUN is 66, creatinine 7.8. ASSESSMENT AND PLAN: 1. End-stage renal disease, continue on hemodialysis. We will have an extra session of dialysis tod for hyperkalemia. 2. Hyperkalemia, no signs of hemolysis. 3. Uremia. 4. Metabolic acidosis. 5. Recheck CBC. Plan is to have an extra session of dialysis. Limit potassium and we will follow. Patient does have a catheter, no fistula and no evidence of recirculation. We will follow.
[2018-03-14] MEDS: Famotidine 20 MG TAB PO SCH (20:37)
[2018-03-14] MEDS: risperiDONE 0.25 MG TAB PO SCH (20:37)
[2018-03-14] MEDS: Atorvastatin Calcium 40 MG TAB PO SCH (20:37)
[2018-03-14] MEDS: Melatonin 3 MG TAB PO SCH (20:37)
[2018-03-15] MEDS: HYDROcodone/Acetaminophen 5/325 mg Tablet PO PRN (01:21)
[2018-03-15 06:24] LABS: #Basophils 0.1 thou/uL (0.0-0.2); #Eosinphils 0.3 thou/uL (0.0-0.7); #Monocytes 1.3 thou/uL (0.11-0.59); #Neutrophils 7.3 thou/uL (1.40-6.50); %Basophils 0.8 % (0.0-1.0); %Eosinophils 2.7 % (0.0-10.0); %Lymphocytes 18.2 % (21.0-51.0); %Monocytes 11.6 % (0.0-10.0); %Neutrophils 66.8 % (42.0-75.0); Hemoglobin 12.3 g/dL (14.0-18.0); Mean Corpuscular HGB CONC 32.7 g/dL (32.0-36.0); Mean Corpuscular Hemoglobin 30.7 pg (27.0-31.0); Mean Corpuscular Volume 93.7 fl (80.0-94.0); Mean Platelet Volume 8.9 fL (7.4-10.4); Platelet Count 147 thou/uL (130-400); RBC Distribution Width 14.3 % (11.5-14.5); Red Blood Cell (RBC) Count 4.02 mill/uL (4.70-6.10)
[2018-03-15 06:39] LABS: Anion Gap 19 mmol/L (10-20); BUN (Urea Nitrogen) 72 mg/dL (8.9-20.6); Calc. Creatinine Clearance 22 mL/min (70-130); Calcium 9.5 mg/dL (7.8-10.44); Carbon Dioxide 22 mmol/L (22-29); Chloride 98 mmol/L (98-107); Estimated GFR-MDRD 7; Glucose 115 mg/dL (70-105); Potassium 5.4 mmol/L (3.5-5.1); Sodium 134 mmol/L (136-145)
--- NOTE | 2018-03-15 07:14 | PDOC.PN ---
- Subjective Encounter Start Date: 03/14/18 Encounter Start Time: 13:00 Patient is seen today, Admitted with Severe hyperkalemia, Now persistant, with multiple Dialysis sessions. pt is still very weak. - Objective Resuscitation Status: Resuscitation Status DNI:No Intubation MAR Reviewed: Yes Vital Signs & Weight: Vital Signs (12 hours) Temp Pulse Resp BP BP 03/15/18 04:00 98.5 F 77 14 122/65 03/14/18 20:00 98.7 F 82 16 112/57 L Weight Admit Weight 311 lb 4.683 oz Weight 293 lb 14.72 oz Most Recent Monitor Data Heart Rate from ECG 97 NIBP 158/98 NIBP BP-Mean 112 Respiration from ECG 18 SpO2 93 Result Diagrams: 03/15/18 05:43 03/15/18 05:43 Additional Labs: Accuchecks 03/15/18 03/14/18 03/14/18 05:54 21:19 17:07 POC Glucose 115 H 135 H 152 H 03/14/18 03/14/18 16:28 11:25 POC Glucose 144 H 113 H Radiology Reviewed by me: Yes Phys Exam - Physical Examination HEENT: PERRLA, moist MMs Neck: no nodes, no JVD Respiratory: no wheezing, no rales Cardiovascular: RRR, no significant murmur Gastrointestinal: soft, non-tender Musculoskeletal: no edema, pulses present Neurological: non-focal, normal sensation Dx/Plan (1) Acute and chronic respiratory failure Code(s): J96.20 - ACUTE AND CHR RESP FAILURE, UNSP W HYPOXIA OR HYPERCAPNIA Status: Acute Comment: Will continue to Moniotr, he is on 4 Liers [place], will continue with Nebs. (2) CAD (coronary artery disease) Code(s): I25.10 - ATHSCL HEART DISEASE OF [place] CORONARY ARTERY W/O ANG PCTRS Status: Chronic Qualifiers: Comment: CABG 2017.on ASA,statin,BB (3) DM2 (diabetes mellitus, type 2) Status: Chronic Qualifiers: Comment: Continue Tresiba 50u sc HS, ISS (4) ESRD (end stage renal disease) on dialysis Code(s): N18.6 - END STAGE RENAL DISEASE; Z99.2 - DEPENDENCE ON RENAL DIALYSIS Status: Chronic Comment: @ consecutive HD, No HD today, pt still has mild Elevation of potassium. (5) Hyperkalemia, diminished renal excretion Code(s): E87.5 - HYPERKALEMIA Status: Chronic Comment: persistant after three back to back HD. pt has likely hemolysis, elevated Retic count, Bili normal, LDH elevated,Haptoglobulin pending, peripheral smear pending (6) Obesity (BMI 30-39.9) Code(s): E66.9 - OBESITY, UNSPECIFIED Status: Chronic (7) PVD (peripheral vascular disease) Code(s): I73.9 - PERIPHERAL VASCULAR DISEASE, UNSPECIFIED Status: Chronic Comment: Continue ASA 325mg daily - Plan cont current plan of care, PT/OT, drug abuse social worker, respiratory therapy, incentive spirometry, DVT proph w/heparin * . - Discharge Day Encounter end time: 13:30 Review of Systems - Review of Systems Constitutional: weakness, malaise Eyes: negative: Pain, Vision Change, Conjunctivae Inflammation, Eyelid Inflammation, Redness, Other ENT: negative: Ear Pain, Ear Discharge, Nose Pain, Nose Discharge, Nose Congestion, Mouth Pain, Mouth Swelling, Throat Pain, Throat Swelling, Other Respiratory: Shortness of Breath, SOB with Excertion, Wheezing Cardiovascular: negative: chest pain, palpitations, orthopnea, paroxysmal nocturnal dyspnea, edema, light headedness, other Gastrointestinal: negative: Nausea, Vomiting, Abdominal Pain, Diarrhea, Constipation, Melena, Hematochezia, Other Musculoskeletal: Back Pain. negative: Neck Pain, Shoulder Pain, Arm Pain, Hand Pain, Leg Pain, Foot Pain, Other - Medications/Allergies Allergies/Adverse Reactions: Allergies Allergy/AdvReac Type Severity Reaction Status Date / Time No Known Allergies Allergy Verified 07/15/17 02:05 Medications: Current Medications Acetaminophen (Tylenol) 650 mg PO Q4H PRN PRN Reason: Headache/Fever or Pain Last Admin: 03/11/18 13:29 Dose: 650 mg Acetaminophen (Tylenol) 650 mg PO Q4H PRN PRN Reason: Pain Hydrocodone Bitart/Acetaminophen ([place] 7.5/325) 1 tab PO Q4H PRN PRN Reason: Moderate Pain (4-6) Hydrocodone Bitart/Acetaminophen ([place] 5/325) 1 tab PO Q4H PRN PRN Reason: Pain Last Admin: 03/15/18 01:21 Dose: 1 tab Acidophilus (Floranex) 1 tab PO TID [facility] Last Admin: 03/14/18 20:37 Dose: 1 tab Aspirin (Aspirin) 325 mg PO DAILY [facility] Last Admin: 03/14/18 08:37 Dose: 325 mg Atorvastatin Calcium (Lipitor) 80 mg PO HS [facility] Last Admin: 03/14/18 20:37 Dose: 80 mg Calcium Acetate (Phoslo) 1,334 mg PO BID-[facility] Last Admin: 03/14/18 17:17 Dose: 1,334 mg Carvedilol (Coreg) 3.125 mg PO BID [facility] Last Admin: 03/14/18 20:37 Dose: 3.125 mg Cholecalciferol (Vitamin D3) 2,000 units PO DAILY [facility] Last Admin: 03/14/18 08:37 Dose: 2,000 units Famotidine (Pepcid) 20 mg PO 2100 [facility] Last Admin: 03/14/18 20:37 Dose: 20 mg Heparin Sodium (Porcine) (Heparin) 5,000 units SC BID [facility] Last Admin: 03/14/18 20:36 Dose: 5,000 units Insulin Human Lispro (Humalog) 5 units SC TID-[facility] Last Admin: 03/14/18 17:15 Dose: 5 unit Lanthanum Carbonate (Fosrenol) 1,000 mg PO TID-[facility] Last Admin: 03/14/18 17:17 Dose: 1,000 mg Loratadine (Claritin) 10 mg PO DAILY [facility] Last Admin: 03/14/18 08:37 Dose: 10 mg Melatonin (Melatonin) 3 mg PO [facility] Last Admin: 03/14/18 20:37 Dose: 3 mg Metoprolol Tartrate (Lopressor) 5 mg IVP Q6H PRN PRN Reason: HR > 110 Ondansetron HCl (Zofran) 4 mg IVP Q6H PRN PRN Reason: Nausea/Vomiting Ondansetron HCl (Zofran Odt) 4 mg PO Q6H PRN PRN Reason: Nausea/Vomiting Last Admin: 03/12/18 08:58 Dose: 4 mg Tresiba Insulin 0 each SC [facility] Patiromer Calcium Sorbitex [Veltassa] 8.4 Gm 0 each PO DAILY [facility] Last Admin: 03/14/18 08:37 Dose: Not Given Risperidone (Risperidone) 0.25 mg PO HS [facility] Last Admin: 03/14/18 20:37 Dose: 0.25 mg Sodium Chloride (Flush - Normal Saline) 10 ml IVF Q12HR [facility] Last Admin: 03/14/18 20:42 Dose: 10 ml Sodium Chloride (Flush - Normal Saline) 10 ml IVF PRN PRN PRN Reason: Saline Flush Vitamin B Complex/Vit C/Folic Acid (Nephro-Anel Tablet) 1 tab PO DAILY [facility] Last Admin: 03/14/18 08:37 Dose: 1 tab
[2018-03-15] MEDS: Calcium Acetate 667 MG CAP PO SCH ×2 (08:58→16:30)
[2018-03-15] MEDS: HumaLOG 300 UNITS/3 ML VIAL SC SCH ×3 (08:58→16:30)
[2018-03-15] MEDS: Lanthanum Carbonate 500 mg Tablet PO SCH ×3 (08:58→16:30)
[2018-03-15] MEDS: Carvedilol 3.125 MG TAB PO SCH ×2 (09:01→19:57)
[2018-03-15] MEDS: Aspirin 325 MG TAB PO SCH (09:01)
[2018-03-15] MEDS: Heparin 5,000 UNITS/ML VIAL SC SCH ×2 (09:01→19:57)
[2018-03-15] MEDS: Loratadine 10 MG TAB PO SCH (09:02)
[2018-03-15] MEDS: Lactinex Tablet PO SCH ×3 (09:02→19:57)
[2018-03-15] MEDS: Folic Acid/Vit B Comp W-C PO SCH (09:02)
[2018-03-15] MEDS: Patiromer Calcium Sorbitex [Veltassa] 8.4 GM PO SCH (09:09)
--- NOTE | 2018-03-15 14:07 | PDOC.PN ---
- Subjective Encounter Start Date: 03/15/18 Encounter Start Time: 11:00 Patient is seen today, drowsy. has persistant hyperkalemia, Pending results for haptoglobulin, Pt had back to back HD with not expected response. - Objective Resuscitation Status: Resuscitation Status DNI:No Intubation MAR Reviewed: Yes Vital Signs & Weight: Vital Signs (12 hours) Temp Pulse Pulse Pulse Resp BP BP 03/15/18 12:00 97.7 F 81 18 03/15/18 11:05 83 88 120/77 121/78 03/15/18 08:00 98.3 F 83 18 03/15/18 04:00 98.5 F 77 14 BP BP BP Pulse Ox 03/15/18 12:00 137/77 92 L 03/15/18 11:05 03/15/18 08:00 118/71 97 03/15/18 04:00 122/65 Weight Admit Weight 311 lb 4.683 oz Weight 293 lb 14.72 oz Most Recent Monitor Data Heart Rate from ECG 97 NIBP 158/98 NIBP BP-Mean 112 Respiration from ECG 18 SpO2 93 I&O: 03/14/18 03/15/18 03/16/18 06:59 06:59 06:59 Intake Total 360 Balance 360 Result Diagrams: 03/15/18 05:43 03/15/18 05:43 Additional Labs: Accuchecks 03/15/18 03/15/18 03/14/18 11:01 05:54 21:19 POC Glucose 139 H 115 H 135 H 03/14/18 03/14/18 17:07 16:28 POC Glucose 152 H 144 H Radiology Reviewed by me: Yes Phys Exam - Physical Examination HEENT: PERRLA, moist MMs Neck: no nodes, no JVD Respiratory: no wheezing, no rales Cardiovascular: RRR, no significant murmur Gastrointestinal: soft, non-tender Musculoskeletal: no edema, pulses present Neurological: non-focal, normal sensation Lymphatic: no nodes Psychiatric: normal affect, A&O x 3 Skin: no rash Dx/Plan (1) Acute and chronic respiratory failure Code(s): J96.20 - ACUTE AND CHR RESP FAILURE, UNSP W HYPOXIA OR HYPERCAPNIA Status: Acute Comment: Will continue to Moniotr, he is on 4 Liers [place], will continue with Nebs. (2) CAD (coronary artery disease) Code(s): I25.10 - ATHSCL HEART DISEASE OF [place] CORONARY ARTERY W/O ANG PCTRS Status: Chronic Qualifiers: Comment: CABG 2017.on ASA,statin,BB (3) DM2 (diabetes mellitus, type 2) Status: Chronic Qualifiers: Comment: Continue Tresiba 50u sc HS, ISS (4) ESRD (end stage renal disease) on dialysis Code(s): N18.6 - END STAGE RENAL DISEASE; Z99.2 - DEPENDENCE ON RENAL DIALYSIS Status: Chronic Comment: @ consecutive HD, No HD today, pt still has mild Elevation of potassium with Multiple HD, discussed with Dr. lobo, plan is to wait for Hemolysis lab work and consult Hematology tomorrow to look for any evidence of hemolysis contributing to High potassium resistant to HD, Another option is to place another dialysis cathter and try doing HD again. (5) Hyperkalemia, diminished renal excretion Code(s): E87.5 - HYPERKALEMIA Status: Chronic Comment: persistant after three back to back HD. pt has likely hemolysis, elevated Retic count, Bili normal, LDH elevated,Haptoglobulin pending, peripheral smear pending. See plan Above. (6) Obesity (BMI 30-39.9) Code(s): E66.9 - OBESITY, UNSPECIFIED Status: Chronic (7) PVD (peripheral vascular disease) Code(s): I73.9 - PERIPHERAL VASCULAR DISEASE, UNSPECIFIED Status: Chronic Comment: Continue ASA 325mg daily - Plan cont current plan of care, PT/OT, social welfare administrator, incentive spirometry, DVT proph w/heparin * . - Discharge Day Encounter end time: 11:35 Review of Systems - Review of Systems Constitutional: negative: fever, chills, sweats, weakness, malaise, other Eyes: negative: Pain, Vision Change, Conjunctivae Inflammation, Eyelid Inflammation, Redness, Other ENT: negative: Ear Pain, Ear Discharge, Nose Pain, Nose Discharge, Nose Congestion, Mouth Pain, Mouth Swelling, Throat Pain, Throat Swelling, Other Respiratory: negative: Cough, Dry, Shortness of Breath, Hemoptysis, SOB with Excertion, Pleuritic Pain, Sputum, Wheezing Cardiovascular: negative: chest pain, palpitations, orthopnea, paroxysmal nocturnal dyspnea, edema, light headedness, other Gastrointestinal: negative: Nausea, Vomiting, Abdominal Pain, Diarrhea, Constipation, Melena, Hematochezia, Other Musculoskeletal: negative: Neck Pain, Shoulder Pain, Arm Pain, Back Pain, Hand Pain, Leg Pain, Foot Pain, Other - Medications/Allergies Allergies/Adverse Reactions: Allergies Allergy/AdvReac Type Severity Reaction Status Date / Time No Known Allergies Allergy Verified 07/15/17 02:05 Medications: Current Medications Acetaminophen (Tylenol) 650 mg PO Q4H PRN PRN Reason: Headache/Fever or Pain Last Admin: 03/11/18 13:29 Dose: 650 mg Acetaminophen (Tylenol) 650 mg PO Q4H PRN PRN Reason: Pain Hydrocodone Bitart/Acetaminophen ([place] 7.5/325) 1 tab PO Q4H PRN PRN Reason: Moderate Pain (4-6) Hydrocodone Bitart/Acetaminophen ([place] 5/325) 1 tab PO Q4H PRN PRN Reason: Pain Last Admin: 03/15/18 01:21 Dose: 1 tab Acidophilus (Floranex) 1 tab PO TID [facility] Last Admin: 03/15/18 09:02 Dose: 1 tab Aspirin (Aspirin) 325 mg PO DAILY [facility] Last Admin: 03/15/18 09:01 Dose: 325 mg Atorvastatin Calcium (Lipitor) 80 mg PO [facility] Last Admin: 03/14/18 20:37 Dose: 80 mg Calcium Acetate (Phoslo) 1,334 mg PO BID[facility] Last Admin: 03/15/18 08:58 Dose: 1,334 mg Carvedilol (Coreg) 3.125 mg PO BID [facility] Last Admin: 03/15/18 09:01 Dose: 3.125 mg Cholecalciferol (Vitamin D3) 2,000 units PO DAILY [facility] Last Admin: 03/15/18 09:01 Dose: 2,000 units Famotidine (Pepcid) 20 mg PO 2100 [facility] Last Admin: 03/14/18 20:37 Dose: 20 mg Heparin Sodium (Porcine) (Heparin) 5,000 units SC BID [facility] Last Admin: 03/15/18 09:01 Dose: 5,000 units Insulin Human Lispro (Humalog) 5 units SC TID-[facility] Last Admin: 03/15/18 12:30 Dose: 5 unit Lanthanum Carbonate (Fosrenol) 1,000 mg PO TID-[facility] Last Admin: 03/15/18 12:28 Dose: 1,000 mg Loratadine (Claritin) 10 mg PO DAILY [facility] Last Admin: 03/15/18 09:02 Dose: 10 mg Melatonin (Melatonin) 3 mg PO HS [facility] Last Admin: 03/14/18 20:37 Dose: 3 mg Metoprolol Tartrate (Lopressor) 5 mg IVP Q6H PRN PRN Reason: HR > 110 Ondansetron HCl (Zofran) 4 mg IVP Q6H PRN PRN Reason: Nausea/Vomiting Ondansetron HCl (Zofran Odt) 4 mg PO Q6H PRN PRN Reason: Nausea/Vomiting Last Admin: 03/12/18 08:58 Dose: 4 mg Tresiba Insulin 0 each SC HS [facility] Patiromer Calcium Sorbitex [Veltassa] 8.4 Gm 0 each PO DAILY [facility] Last Admin: 03/15/18 09:09 Dose: Not Given Risperidone (Risperidone) 0.25 mg PO HS [facility] Last Admin: 03/14/18 20:37 Dose: 0.25 mg Sodium Chloride (Flush - Normal Saline) 10 ml IVF Q12HR [facility] Last Admin: 03/15/18 09:03 Dose: 10 ml Sodium Chloride (Flush - Normal Saline) 10 ml IVF PRN PRN PRN Reason: Saline Flush Vitamin B Complex/Vit C/Folic Acid (Nephro-Anel Tablet) 1 tab PO DAILY [facility] Last Admin: 03/15/18 09:02 Dose: 1 tab
--- NOTE | 2018-03-15 14:08 | PRG ---
DATE OF SERVICE: 03/15/2018 SUBJECTIVE: Patient was seen and examined at bedside and overnight events noted. Patient denies any shortness of breath or chest pain or palpitation. No history of nausea or vomiting or diarrhea or f ever or chills or cramps. OBJECTIVE: General: This is an obese male in no apparent distress. Vital Signs: Temperature 98.3, pulse 83, respiratory rate 18, and blood pressure 118/71. HEENT: Atraumatic, normocephalic. Oral mucosa is moist. Neck: Supple. Cardiovascular: S1 and S2 heard. Rate and rhythm regular. Respiratory: Clear to auscultation. Gastrointestinal: Abdomen is soft. Musculoskeletal: No tenderness, No edema. Dermatologic: No skin rash. Neurologic: Alert and awake and oriented X3, No focal neurologic deficits. Moving all the extremitie s. Psychiatric: Mood and affect normal. LABORATORY DATA: Potassium is 5.4, BUN is 72, and creatinine is 8.3. ASSESSMENT: 1. End-stage renal disease. We will continue on dialysis. 2. Hyperkalemia, which is triggering patient with persistent hyperkalemia despite having frequent di alysis actually in fact potassium is higher than yesterday after dialysis. His catheter is functioni ng good, less likely access related issue, possibility of hemolysis, but lab work is not supporting i t, we would also check a uric acid to rule out any tumor lysis. Might need Hematology/Oncology evalu ation also. PLAN: 1. Discussed with Dr. Rashid Reynaga. The patient was advised to limit potassium intake and currently on a renal diet and also will give a cut dose of Kayexalate. 2. Uremia. 3. Metabolic acidosis, stable. 4. Anemia, stable. 5. Edema, controlled. 6. Hypertension. 7. Plan is to closely monitor persistent potassium then might need a change out of the dialysis acce ss. I will follow.
[2018-03-15] MEDS: risperiDONE 0.25 MG TAB PO SCH (19:53)
[2018-03-15] MEDS: Melatonin 3 MG TAB PO SCH (19:54)
[2018-03-15] MEDS: Atorvastatin Calcium 40 MG TAB PO SCH (19:54)
[2018-03-15] MEDS: Famotidine 20 MG TAB PO SCH (19:57)
[2018-03-16] MEDS: Calcium Acetate 667 MG CAP PO SCH ×2 (08:00→19:15)
[2018-03-16] MEDS: Lanthanum Carbonate 500 mg Tablet PO SCH ×3 (08:05→19:15)
[2018-03-16] MEDS: HumaLOG 300 UNITS/3 ML VIAL SC SCH ×3 (08:10→19:15)
[2018-03-16] MEDS ORDERED: PROPOFOL 200 MG/20 ML VIAL ONE (08:16)
[2018-03-16] MEDS ORDERED: Sterile Water 10 ML VIAL IVP SCH (09:00)
[2018-03-16] MEDS ORDERED: Activase 2 MG VIAL CATH SCH (09:00)
[2018-03-16 09:21] LABS: Anion Gap 22 mmol/L (10-20); BUN (Urea Nitrogen) 106 mg/dL (8.9-20.6); Calc. Creatinine Clearance 17 mL/min (70-130); Calcium 8.9 mg/dL (7.8-10.44); Carbon Dioxide 23 mmol/L (22-29); Chloride 97 mmol/L (98-107); Estimated GFR-MDRD 5; Glucose 187 mg/dL (70-105); Phosphorus 7.7 mg/dL (2.3-4.7); Potassium 5.9 mmol/L (3.5-5.1); Sodium 136 mmol/L (136-145); Uric Acid 8.5 mg/dL (3.5-7.2)
[2018-03-16] MEDS ORDERED: CEFAZOLIN/Water 2 GM/20 ML SYRINGE SLOW IVP SCH (10:45)
[2018-03-16] MEDS: Carvedilol 3.125 MG TAB PO SCH ×2 (11:26→20:06)
--- NOTE | 2018-03-16 11:52 | PRG ---
DATE OF SERVICE: 03/16/2018 SUBJECTIVE: This is a 42-year-old gentleman being seen for end-stage renal disease. Patient denies any nausea, vomiting, chest pain. PHYSICAL EXAMINATION: GENERAL: Patient is awake, alert. VITAL SIGNS: Afebrile, pulse 81, breathing 16, blood pressure is 149/67. GENERAL APPEARANCE AND MENTAL STATUS: Fair. HEAD/NECK: Normocephalic. Atraumatic. EYES: EOMI. No deformity. EARS: Clear. No ulcers. NOSE: Intact. No lesions. MOUTH: Clear. No discharge. THROAT: Clear. No exudate. LUNGS: Clear. No crackles. CARDIAC: S1, S2. No rub. ABDOMEN: Benign. BS+. GENITALIA/RECTUM: Mei absent. BACK/EXTREMITIES: Edema 0+ Ulcer- NEUROLOGICAL: Alert and motor intact. SKIN: Rash- Bruise- LYMPHATICS: Edema- Ulcer- LABORATORY DATA: Potassium is 5.9. ASSESSMENT AND RECOMMENDATIONS: 1. Stage 6 chronic kidney disease, plan hemodialysis. 2. Hypertension, stable. 3. Anemia, stable. 4. Uremia, plan dialysis. 5. Hyperkalemia because of poor access, new access will be placed.
[2018-03-16 12:42] VITALS: BMI 42.5
[2018-03-16] MEDS: Aspirin 325 MG TAB PO SCH (14:28)
[2018-03-16] MEDS: Folic Acid/Vit B Comp W-C PO SCH (14:28)
[2018-03-16] MEDS: Heparin 5,000 UNITS/ML VIAL SC SCH ×2 (14:28→20:07)
[2018-03-16] MEDS: Loratadine 10 MG TAB PO SCH (14:29)
[2018-03-16] MEDS: Patiromer Calcium Sorbitex [Veltassa] 8.4 GM PO SCH (14:29)
[2018-03-16] MEDS: Lactinex Tablet PO SCH ×3 (14:29→20:06)
--- NOTE | 2018-03-16 15:24 | PDOC.PN ---
- Subjective Encounter Start Date: 03/16/18 Encounter Start Time: 11:00 patient is very upset, he says he used a medication at [facility] which reduced his potassium, but explained him his potassium is not responding to HD and would need Access change. pt is very upset, did not want me to do any Physcial exam an was not cooperative. - Objective Resuscitation Status: Resuscitation Status DNI:No Intubation MAR Reviewed: Yes Vital Signs & Weight: Vital Signs (12 hours) Temp Pulse Resp BP BP Pulse Ox 03/16/18 11:10 80 18 171/91 H 97 03/16/18 07:12 98.3 F 81 16 149/67 H 94 L 03/16/18 04:00 97.6 F 78 18 177/88 H 97 Weight Admit Weight 311 lb 4.683 oz Weight 296 lb 1.6 oz Most Recent Monitor Data Heart Rate from ECG 97 NIBP 158/98 NIBP BP-Mean 112 Respiration from ECG 18 SpO2 93 I&O: 03/15/18 03/16/18 03/17/18 06:59 06:59 06:59 Intake Total 1160 Output Total 100 Balance 1060 Result Diagrams: 03/15/18 05:43 03/16/18 08:40 Additional Labs: Accuchecks 03/16/18 03/15/18 03/15/18 11:41 21:35 16:05 POC Glucose 122 H 167 H 128 H Radiology Reviewed by me: Yes Phys Exam - Physical Examination Constitutional: NAD Respiratory: no wheezing Cardiovascular: RRR Dx/Plan (1) Acute and chronic respiratory failure Code(s): J96.20 - ACUTE AND CHR RESP FAILURE, UNSP W HYPOXIA OR HYPERCAPNIA Status: Acute Comment: Will continue to Moniotr, he is on 4 Liers [place], will continue with Nebs. (2) CAD (coronary artery disease) Code(s): I25.10 - ATHSCL HEART DISEASE OF [place] CORONARY ARTERY W/O ANG PCTRS Status: Chronic Qualifiers: Comment: CABG 2017.on ASA,statin,BB (3) DM2 (diabetes mellitus, type 2) Status: Chronic Qualifiers: Comment: Continue Tresiba 50u sc HS, ISS (4) ESRD (end stage renal disease) on dialysis Code(s): N18.6 - END STAGE RENAL DISEASE; Z99.2 - DEPENDENCE ON RENAL DIALYSIS Status: Chronic Comment: @ consecutive HD, No HD today, pt still has mild Elevation of potassium with Multiple HD, discussed with Dr. lobo, plan is to wait for Hemolysis lab work and consult Hematology tomorrow to look for any evidence of hemolysis contributing to High potassium resistant to HD, Plan to change the Access of HD catheter. (5) Hyperkalemia, diminished renal excretion Code(s): E87.5 - HYPERKALEMIA Status: Chronic Comment: persistant after three back to back HD. pt has likely hemolysis, elevated Retic count, Bili normal, LDH elevated,Haptoglobulin pending, peripheral smear pending. See plan Above. (6) Obesity (BMI 30-39.9) Code(s): E66.9 - OBESITY, UNSPECIFIED Status: Chronic (7) PVD (peripheral vascular disease) Code(s): I73.9 - PERIPHERAL VASCULAR DISEASE, UNSPECIFIED Status: Chronic Comment: Continue ASA 325mg daily - Plan cont current plan of care, PT/OT, long term care social worker, incentive spirometry, DVT proph w/heparin * . - Discharge Day Encounter end time: 11:35
--- NOTE | 2018-03-16 16:51 | HP ---
HISTORY OF PRESENT ILLNESS: A 42-year-old male patient, end-stage renal disease, lives in an assiste d care in [place]. The patient had a porcine graft placed in his left upper arm, loop graft twin axi llary artery and vein. He presented to this institution with hemorrhagic episode from the wound with infected graft. He had an emergent exploration to repair this. The graft was removed. The artery was repaired. The vein was closed. During the same operation, he had a left T[place] fistula placed. Wide prosthetic dialysis access was placed in the left upper arm when there was an available suitabl e vein in the wrist is uncertain. Nonetheless, he had this fistula that would not mature and evaluat ion revealed the artery was thrombosed. Reverse greater saphenous vein was used to repair this to re establish blood flow to the arm; however, this later thrombosed. The arm is paralyzed and useless. The patient's Tequila fistula has been ligated. The patient had been dependent on a dialysis catheter . I have been talking to him about placement of a graft in his right arm or thigh. He wishes to yesi id placement of a graft in his right arm to avoid complications. There are no neurological problems with his right arm, so he has one functioning arm, which I think is reasonable. He, however, has merle ght second opinion from [place] and they want to look at his left arm to reestablish circulation, mayb e try to place a dialysis access there. I have told him that we should move towards placement of a t high dialysis graft. He has palpable pedal pulses. Patient on this occasion, presents with refracto ry hyperkalemia. His dialysis catheter is not working anymore and despite Cathflo I have been asked to see him regarding removal and replacement. Unfortunately, he had breakfast. Plan is to place a n ew hemodialysis catheter today. Plan would be to on Friday, 2 days from now, place in a left thig h dialysis graft. He understands the risks and benefits of the procedure and consents. HOME MEDICINES: Extensive list, Colace, Aloperidine, MiraLax, acidophilus, Tylenol p.r.n., aspirin 8 1 mg a day, Zyrtec daily, Coreg 3.125 mg b.i.d., PhosLo 1334 mg p.o. b.i.d., vitamin D3 2000 units p. o. daily, folic acid daily, Humalog 5 units subcu with meals, hydrocodone p.r.n. pain, insulin 50 uni ts at bedtime, Fosrenol 1000 mg p.o. t.i.d. with meals, Zofran p.r.n., melatonin 3 mg p.o. at bedtime , Veltassa 8.4 grams p.o. daily, Risperdal 0.25 mg at bedtime. TOBACCO: None. ALCOHOL: None. PAST MEDICAL HISTORY: 1. End-stage renal disease, dialysis Friday, Friday, and Friday, [place]. 2. Left upper extremity paresis. 3. Vascular occlusion, occluded axillary artery, left. 4. Hypertension. 5. Hyperlipidemia. 6. Type 2 diabetes mellitus, on insulin. 7. Coronary artery disease. PAST SURGICAL HISTORY: Amputation of toes each foot, history of IV access left arm with hemorrhage a nd ligation as noted above, status post aortic valve replacement, status post coronary artery bypass grafting, and history of removal of bovine graft due to hemorrhage and infection. Hemodialysis kaden ter malfunction. PHYSICAL EXAMINATION: VITAL SIGNS: 5 feet 10, 296 pounds. EXTREMITIES: Paralyzed left arm, nonpalpable pedal pulses. Palpable pedal pulses and palpable radia l pulse, right. LUNGS: Clear to auscultation. CARDIAC: Regular rate and rhythm without murmur, rub, or gallop. ABDOMEN: Soft, obese. Hemodialysis catheter, right arm. ASSESSMENT AND PLAN: Dialysis catheter right IJ cuffed tunnel dysfunction. PLAN: 1. Removal and placement of a new one to enable dialysis due to refractory hyperkalemia. 2. Needs long-term dialysis access. We will plan left thigh dialysis graft in 2 days. 3. Diabetes mellitus. 4. Obesity. 5. Hypertension.
[2018-03-16 17:37] LABS: Anion Gap 23 mmol/L (10-20); BUN (Urea Nitrogen) 109 mg/dL (8.9-20.6); Calc. Creatinine Clearance 16 mL/min (70-130); Calcium 9.4 mg/dL (7.8-10.44); Carbon Dioxide 19 mmol/L (22-29); Chloride 99 mmol/L (98-107); Estimated GFR-MDRD 5; Glucose 100 mg/dL (70-105); Potassium 6.4 mmol/L (3.5-5.1); Sodium 135 mmol/L (136-145)
[2018-03-16] MEDS ORDERED: Bupivacaine HCl 0.5%/Epinephrine 1:200,000/PF 30 ml Vial ONE (18:21)
[2018-03-16] MEDS ORDERED: Sodium Chloride 0.9% 10 ML ONE (18:21)
[2018-03-16] MEDS ORDERED: Heparin 10,000 UNITS/1 ML VIAL ONE (18:21)
[2018-03-16] MEDS ORDERED: Lidocaine 2% 10 ML INJ ONE (18:21)
[2018-03-16] MEDS ORDERED: Midazolam HCl 2 mg/2 ml Vial ONE ×2 (18:39→18:47)
[2018-03-16] MEDS ORDERED: Fentanyl 100 MCG/2 ML VIAL ONE (18:39)
[2018-03-16] MEDS ORDERED: Promethazine HCl 25 MG/ML VIAL SLOW IVP PRN (19:26)
[2018-03-16] MEDS ORDERED: Promethazine HCl 25 MG/ML VIAL IM PRN (19:26)
[2018-03-16] MEDS ORDERED: Ondansetron HCl/PF 4 MG/2 ML Vial IVP PRN (19:26)
[2018-03-16] MEDS: Famotidine 20 MG TAB PO SCH (20:06)
[2018-03-16] MEDS: risperiDONE 0.25 MG TAB PO SCH (20:06)
[2018-03-16] MEDS: Atorvastatin Calcium 40 MG TAB PO SCH (20:06)
[2018-03-16] MEDS: Melatonin 3 MG TAB PO SCH (20:06)
--- NOTE | 2018-03-16 20:09 | RAD ---
PORTABLE CHEST: HISTORY: Mediport placement. COMPARISON: 03/10/2018 FINDINGS: Heart size is enlarged with postop sternotomy change. A right-sided Mediport catheter is present. T he catheter tip overlies the more distal superior vena cava region. No signs of pneumothorax. IMPRESSION: 1. Right-sided Mediport catheter. 2. No signs of pneumothorax. 3. Cardiomegaly with postoperative sternotomy change. POS: [facility]
--- NOTE | 2018-03-16 20:15 | RAD ---
CHEST ONE VIEW: HISTORY: Intraoperative film. FINDINGS: This is a C-arm projection, which shows a right-sided HemoSplit type catheter seen over the right cla vicle region. The catheter tips are directed over the superior vena cava region. IMPRESSION: Placement of a dual-lumen catheter. POS: MAYTE
--- NOTE | 2018-03-17 01:32 | OP ---
DATE OF PROCEDURE: 03/16/2018. PREOPERATIVE DIAGNOSES: End-stage renal disease, occluded left axillary artery, paretic left arm, dy sfunctional right internal jugular cuffed tunnel dialysis catheter, patient has refused thigh graft i n the past. POSTOPERATIVE DIAGNOSES: End-stage renal disease, occluded left axillary artery, paretic left arm, d ysfunctional right internal jugular cuffed tunnel dialysis catheter, patient has refused thigh graft in the past. PROCEDURES: Removal of right internal jugular cuffed tunnel dialysis catheter. Placement of new rig ht internal jugular cuffed tunnel dialysis catheter slightly longer, and fluoroscopy used. SURGEON: Brayan Graham M.D. ANESTHESIA: Intravenous sedation, local 0.5% Marcaine with epinephrine 30 mL with 2% Xylocaine 10 mL . PROCEDURE IN DETAIL: Patient was taken to the operating room under intravenous sedation, his chest, neck and a dialysis catheter were prepped with ChloraPrep, draped in routine fashion. The cuff of th e catheter had been freed under local anesthetic just prior. Incision was made in the right side of the neck carried down the skin and subcutaneous tissue and the tunnel catheter was dissected free, pu lled out of this incision, controlled with a clamp, transected, and the old catheter removed and the old site prepared with ChloraPrep again. A J-wire placed through the lumen and old catheter removed. A new exit site stab incision was made and using the tunneling device, the slightly longer catheter tunneled between two incisions, placing the cuff beneath the catheter exit site and catheter secured with two interrupted sutures of 3-0 nylon. Biopatch applied. The J-wire placed to the old catheter and old catheter removed. Dilator and pull-away sheath placed over the J-wire in internal jugular v ein. J-wire and dilator removed. Catheter placed through pull-away sheath and the pull-away sheath removed. Fluoroscopically, the catheter noted to be in good position. Platysma approximated with 4- 0 Monocryl, skin with subdermal 4-0 Monocryl. DermaGlue and sterile dressings applied. Each port as pirated blood and flushed with saline solution and heparinized saline solution 1000 units heparin per mL indicated volume the port.
[2018-03-17 08:06] LABS: #Basophils 0.1 thou/uL (0.0-0.2); #Eosinphils 0.2 thou/uL (0.0-0.7); #Lymphocytes 1.6 thou/uL (1.20-3.40); #Monocytes 0.9 thou/uL (0.11-0.59); #Neutrophils 6.3 thou/uL (1.40-6.50); %Eosinophils 2.4 % (0.0-10.0); %Lymphocytes 17.2 % (21.0-51.0); %Monocytes 9.5 % (0.0-10.0); %Neutrophils 69.9 % (42.0-75.0); Hemoglobin 12.1 g/dL (14.0-18.0); Mean Corpuscular HGB CONC 33.5 g/dL (32.0-36.0); Mean Corpuscular Hemoglobin 31.2 pg (27.0-31.0); Mean Corpuscular Volume 93.3 fl (80.0-94.0); Mean Platelet Volume 8.8 fL (7.4-10.4); Platelet Count 158 thou/uL (130-400); Red Blood Cell (RBC) Count 3.86 mill/uL (4.70-6.10)
[2018-03-17 08:27] LABS: Albumin 3.6 g/dL (3.5-5.0); Anion Gap 19 mmol/L (10-20); BUN (Urea Nitrogen) 87 mg/dL (8.9-20.6); BUN/Creatinine Ratio 9.03; Calc. Creatinine Clearance 19 mL/min (70-130); Calcium 9.2 mg/dL (7.8-10.44); Carbon Dioxide 22 mmol/L (22-29); Chloride 101 mmol/L (98-107); Estimated GFR-MDRD 6; Glucose 126 mg/dL (70-105); Phosphorus 7.2 mg/dL (2.3-4.7); Potassium 5.5 mmol/L (3.5-5.1); Sodium 136 mmol/L (136-145)
--- NOTE | 2018-03-17 08:29 | PRG ---
DATE OF SERVICE: 03/17/2018 Mr. Tolbert has a new dialysis catheter. He is waiting to go dialysis. I have recommended he hav e a thigh access graft. The patient states he needs to talk to his medical power of tax associate attorney. Kori pinto I have scheduled a thigh access graft for tomorrow. I have explained to the patient the risk of infection, bleeding, reoperation, ischemic lower extremity. We have tentatively planned operation tomorrow. N.p.o. after midnight. Hibiclens bath/shower tomorrow. We will plan on placement of a [facility] dialysis graft to hopefully eventually get rid of his dialysis catheter which he has had repeated problems with.
[2018-03-17 09:04] LABS: Anion Gap 24 mmol/L (10-20); BUN (Urea Nitrogen) 84 mg/dL (8.9-20.6); Calc. Creatinine Clearance 19 mL/min (70-130); Calcium 9.3 mg/dL (7.8-10.44); Carbon Dioxide 20 mmol/L (22-29); Chloride 100 mmol/L (98-107); Estimated GFR-MDRD 6; Glucose 122 mg/dL (70-105); Potassium 5.5 mmol/L (3.5-5.1); Sodium 138 mmol/L (136-145)
--- NOTE | 2018-03-17 09:10 | PRG ---
DATE OF SERVICE: 03/17/2018 SUBJECTIVE: This is a 42-year-old gentleman being seen for end-stage renal disease. The patient den ies any nausea, vomiting or chest pain. PHYSICAL EXAMINATION: GENERAL: Patient is awake, alert. VITAL SIGNS: Afebrile, pulse 70, breathing 16, blood pressure 130/76. HEAD/NECK: Normocephalic. Atraumatic. EYES: EOMI. No deformity. EARS: Clear. No ulcers. NOSE: Intact. No lesions. MOUTH: Clear. No discharge. THROAT: Clear. No exudate. LUNGS: Clear. No crackles. CARDIAC: S1, S2. No rub. ABDOMEN: Benign. BS+. GENITALIA/RECTUM: Mei absent. BACK/EXTREMITIES: Edema 0+ Ulcer- NEUROLOGICAL: Alert and motor intact. SKIN: Rash- Bruise- LYMPHATICS: Edema- Ulcer- LABORATORY DATA: Show hemoglobin 12.1, potassium is 5.5. ASSESSMENT AND PLAN: 1. Chronic kidney disease stage 6, plan dialysis. 2. Uremia, plan dialysis. 3. Hyperkalemia, plan dialysis.
[2018-03-17] MEDS: Heparin 5,000 UNITS/ML VIAL SC SCH ×2 (09:41→20:05)
[2018-03-17] MEDS: HumaLOG 300 UNITS/3 ML VIAL SC SCH ×3 (09:42→17:46)
[2018-03-17] MEDS: Aspirin 325 MG TAB PO SCH (09:45)
[2018-03-17] MEDS: Loratadine 10 MG TAB PO SCH (09:45)
[2018-03-17] MEDS: Calcium Acetate 667 MG CAP PO SCH ×2 (09:45→17:46)
[2018-03-17] MEDS: Carvedilol 3.125 MG TAB PO SCH ×2 (09:45→20:04)
[2018-03-17] MEDS: Folic Acid/Vit B Comp W-C PO SCH (09:45)
[2018-03-17] MEDS: Lactinex Tablet PO SCH ×3 (09:45→20:04)
[2018-03-17] MEDS: Lanthanum Carbonate 500 mg Tablet PO SCH ×3 (09:46→17:46)
[2018-03-17] MEDS: Patiromer Calcium Sorbitex [Veltassa] 8.4 GM PO SCH (09:47)
--- NOTE | 2018-03-17 13:30 | PDOC.PN ---
- Subjective Encounter Start Date: 03/17/18 Encounter Start Time: 09:00 Subjective: had shower this am, no chest pain or sob -: No c/o palp - Objective Resuscitation Status: Resuscitation Status DNI:No Intubation MAR Reviewed: Yes Vital Signs & Weight: Vital Signs (12 hours) Temp Pulse Pulse Pulse Resp BP BP 03/17/18 11:43 79 18 03/17/18 09:11 78 79 139/85 141/65 H 03/17/18 07:35 98.3 F 78 16 03/17/18 04:00 98.5 F 80 18 BP BP Pulse Ox 03/17/18 11:43 128/80 98 03/17/18 09:11 03/17/18 07:35 160/76 H 96 03/17/18 04:00 130/76 96 Weight Admit Weight 311 lb 4.683 oz Weight 294 lb 12.8 oz Most Recent Monitor Data Heart Rate from ECG 97 NIBP 158/98 NIBP BP-Mean 112 Respiration from ECG 18 SpO2 93 I&O: 03/16/18 03/17/18 03/18/18 06:59 06:59 06:59 Intake Total 1160 480 Output Total 100 0 Balance 1060 480 Result Diagrams: 03/17/18 08:00 03/17/18 08:10 Additional Labs: Accuchecks 03/17/18 03/17/18 03/16/18 11:20 06:06 20:06 POC Glucose 149 H 111 H 106 Phys Exam - Physical Examination HEENT: PERRLA, moist MMs Neck: no JVD, supple Respiratory: no wheezing, no rales Cardiovascular: RRR, no significant murmur Gastrointestinal: soft, non-tender, positive bowel sounds Musculoskeletal: no edema, pulses present Neurological: non-focal, moves all 4 limbs Psychiatric: A&O x 3 Dx/Plan (1) Hyperkalemia Code(s): E87.5 - HYPERKALEMIA Status: Acute (2) Anemia of renal disease Code(s): D63.1 - ANEMIA IN CHRONIC KIDNEY DISEASE Status: Chronic (3) CAD (coronary artery disease) Code(s): I25.10 - ATHSCL HEART DISEASE OF [place] CORONARY ARTERY W/O ANG PCTRS Status: Chronic Qualifiers: Coronary Disease-Associated Artery/Lesion type: bypass graft [place] vs. transplanted heart: [place] heart Associated angina: without angina Qualified Code(s): I25.810 - Atherosclerosis of coronary artery bypass graft(s) without angina pectoris (4) DM2 (diabetes mellitus, type 2) Status: Chronic Qualifiers: Diabetes mellitus termite control servicer insulin use: with senior care use Diabetes mellitus complication status: with unspecified complications Qualified Code(s) : E11.8 - Type 2 diabetes mellitus with unspecified complications; Z79.4 - [facility] (current) use of insulin; Z79.4 - terminal clerk (current) use of insulin; Z79.4 - terminal clerk (current) use of insulin; Z79.4 - terminal clerk (current) use of insulin Comment: (5) Dyslipidemia Code(s): E78.5 - HYPERLIPIDEMIA, UNSPECIFIED Status: Chronic (6) ESRD (end stage renal disease) on dialysis Code(s): N18.6 - END STAGE RENAL DISEASE; Z99.2 - DEPENDENCE ON RENAL DIALYSIS Status: Chronic (7) PVD (peripheral vascular disease) Code(s): I73.9 - PERIPHERAL VASCULAR DISEASE, UNSPECIFIED Status: Chronic - Plan for HD today with new tunelled right IJ cath -: will watch for serum K levels -: to mobilize as tolerated -: continue asp, lipitor, coreg and risperidone HS -: dc plan when electrolytes and uremia is corrected * . Review of Systems - Medications/Allergies Allergies/Adverse Reactions: Allergies Allergy/AdvReac Type Severity Reaction Status Date / Time No Known Allergies Allergy Verified 07/15/17 02:05 Medications: Current Medications Acetaminophen (Tylenol) 650 mg PO Q4H PRN PRN Reason: Headache/Fever or Pain Last Admin: 03/11/18 13:29 Dose: 650 mg Acetaminophen (Tylenol) 650 mg PO Q4H PRN PRN Reason: Pain Hydrocodone Bitart/Acetaminophen ([place] 7.5/325) 1 tab PO Q4H PRN PRN Reason: Moderate Pain (4-6) Hydrocodone Bitart/Acetaminophen ([place] 5/325) 1 tab PO Q4H PRN PRN Reason: Pain Last Admin: 03/15/18 01:21 Dose: 1 tab Acidophilus (Floranex) 1 tab PO TID [facility] Last Admin: 03/17/18 09:45 Dose: 1 tab Aspirin (Aspirin) 325 mg PO DAILY [facility] Last Admin: 03/17/18 09:45 Dose: 325 mg Atorvastatin Calcium (Lipitor) 80 mg PO HS [facility] Last Admin: 03/16/18 20:06 Dose: 80 mg Calcium Acetate (Phoslo) 1,334 mg PO BID-[facility] Last Admin: 03/17/18 09:45 Dose: 1,334 mg Carvedilol (Coreg) 3.125 mg PO BID [facility] Last Admin: 03/17/18 09:45 Dose: 3.125 mg Cefazolin Sodium (Ancef) 2 gm SLOW IVP ONCALL-OR [facility] Cholecalciferol (Vitamin D3) 2,000 units PO DAILY [facility] Last Admin: 03/17/18 09:45 Dose: 2,000 units Famotidine (Pepcid) 20 mg PO 2100 [facility] Last Admin: 03/16/18 20:06 Dose: 20 mg Heparin Sodium (Porcine) (Heparin) 5,000 units SC BID [facility] Last Admin: 03/17/18 09:41 Dose: 5,000 units Insulin Human Lispro (Humalog) 5 units SC TID-[facility] Last Admin: 03/17/18 12:07 Dose: 5 unit Lanthanum Carbonate (Fosrenol) 1,000 mg PO TID-[facility] Last Admin: 03/17/18 12:07 Dose: 1,000 mg Loratadine (Claritin) 10 mg PO DAILY [facility] Last Admin: 03/17/18 09:45 Dose: 10 mg Melatonin (Melatonin) 3 mg PO [facility] Last Admin: 03/16/18 20:06 Dose: 3 mg Metoprolol Tartrate (Lopressor) 5 mg IVP Q6H PRN PRN Reason: HR > 110 Ondansetron HCl (Zofran) 4 mg IVP Q6H PRN PRN Reason: Nausea/Vomiting Ondansetron HCl (Zofran Odt) 4 mg PO Q6H PRN PRN Reason: Nausea/Vomiting Last Admin: 03/12/18 08:58 Dose: 4 mg Tresiba Insulin 0 each SC [facility] Patiromer Calcium Sorbitex [Veltassa] 8.4 Gm 0 each PO DAILY [facility] Last Admin: 03/17/18 09:47 Dose: Not Given Risperidone (Risperidone) 0.25 mg PO [facility] Last Admin: 03/16/18 20:06 Dose: 0.25 mg Sodium Chloride (Flush - Normal Saline) 10 ml IVF Q12HR [facility] Last Admin: 03/17/18 09:47 Dose: Not Given Sodium Chloride (Flush - Normal Saline) 10 ml IVF PRN PRN PRN Reason: Saline Flush Vitamin B Complex/Vit C/Folic Acid (Nephro-Anel Tablet) 1 tab PO DAILY [facility] Last Admin: 03/17/18 09:45 Dose: 1 tab
[2018-03-17] MEDS: Atorvastatin Calcium 40 MG TAB PO SCH (20:04)
[2018-03-17] MEDS: risperiDONE 0.25 MG TAB PO SCH (20:04)
[2018-03-17] MEDS: Famotidine 20 MG TAB PO SCH (20:04)
[2018-03-17] MEDS: Melatonin 3 MG TAB PO SCH (20:05)
[2018-03-18 05:20] LABS: #Basophils 0.1 thou/uL (0.0-0.2); #Eosinphils 0.2 thou/uL (0.0-0.7); #Lymphocytes 2.3 thou/uL (1.20-3.40); #Monocytes 1.2 thou/uL (0.11-0.59); #Neutrophils 6.8 thou/uL (1.40-6.50); %Basophils 1.1 % (0.0-1.0); %Eosinophils 1.7 % (0.0-10.0); %Lymphocytes 21.3 % (21.0-51.0); %Monocytes 11.7 % (0.0-10.0); %Neutrophils 64.3 % (42.0-75.0); Hemoglobin 12.1 g/dL (14.0-18.0); Mean Corpuscular HGB CONC 32.9 g/dL (32.0-36.0); Mean Corpuscular Hemoglobin 30.6 pg (27.0-31.0); Mean Corpuscular Volume 93.3 fl (80.0-94.0); Mean Platelet Volume 8.7 fL (7.4-10.4); Platelet Count 172 thou/uL (130-400); RBC Distribution Width 14.2 % (11.5-14.5); Red Blood Cell (RBC) Count 3.94 mill/uL (4.70-6.10); White Blood Cell (WBC) Count 10.6 thou/uL (4.8-10.8)
[2018-03-18] MEDS: Carvedilol 3.125 MG TAB PO SCH ×2 (05:28→22:44)
[2018-03-18 05:43] LABS: Anion Gap 17 mmol/L (10-20); BUN (Urea Nitrogen) 49 mg/dL (8.9-20.6); Calc. Creatinine Clearance 26 mL/min (70-130); Calcium 9.2 mg/dL (7.8-10.44); Carbon Dioxide 29 mmol/L (22-29); Chloride 96 mmol/L (98-107); Estimated GFR-MDRD 9; Glucose 157 mg/dL (70-105); Potassium 4.8 mmol/L (3.5-5.1); Sodium 137 mmol/L (136-145)
[2018-03-18] MEDS ORDERED: Vancomycin HCl 1.5 GM in Sodium Chloride 0.9% 250 ML 300 ML IVPB SCH (08:00)
[2018-03-18] MEDS ORDERED: Gentamicin 80 MG/2 ML VIAL IVPB SCH (09:00)
[2018-03-18] MEDS: Lactinex Tablet PO SCH ×3 (09:30→22:45)
[2018-03-18] MEDS ORDERED: CEFAZOLIN/Water 2 GM/20 ML SYRINGE ONE (10:32)
[2018-03-18] MEDS ORDERED: Lidocaine 2% 10 ML INJ ONE (10:40)
[2018-03-18] MEDS ORDERED: Bupivacaine/Epinephrine 0.25% 30 ML VIAL ONE (10:40)
--- NOTE | 2018-03-18 10:40 | PDOC.PN ---
- Subjective Encounter Start Date: 03/18/18 Encounter Start Time: 08:30 Subjective: feels a bit nauseous -: no chest pain or sob - Objective Resuscitation Status: Resuscitation Status DNI:No Intubation MAR Reviewed: Yes Vital Signs & Weight: Vital Signs (12 hours) Temp Pulse Resp BP BP Pulse Ox 03/18/18 08:23 98.5 F 78 18 139/66 96 03/18/18 04:00 98.4 F 82 18 125/60 93 L Weight Admit Weight 311 lb 4.683 oz Weight 291 lb 4.48 oz Most Recent Monitor Data Heart Rate from ECG 97 NIBP 158/98 NIBP BP-Mean 112 Respiration from ECG 18 SpO2 93 I&O: 03/17/18 03/18/18 03/19/18 06:59 06:59 06:59 Intake Total 480 1038 Output Total 0 2700 Balance 480 -1662 Result Diagrams: 03/18/18 04:59 03/18/18 04:59 Additional Labs: Accuchecks 03/18/18 03/17/18 03/17/18 06:16 20:49 17:41 POC Glucose 155 H 237 H 117 H 03/17/18 11:20 POC Glucose 149 H Phys Exam - Physical Examination HEENT: PERRLA, moist MMs Neck: no JVD, supple Respiratory: no wheezing, no rales Cardiovascular: RRR, no significant murmur Gastrointestinal: soft, non-tender, positive bowel sounds Musculoskeletal: pulses present, edema present Neurological: non-focal, moves all 4 limbs chronic left UE paresis Psychiatric: normal affect, A&O x 3 Dx/Plan (1) Hyperkalemia Code(s): E87.5 - HYPERKALEMIA Status: Resolved (2) Anemia of renal disease Code(s): D63.1 - ANEMIA IN CHRONIC KIDNEY DISEASE Status: Chronic (3) CAD (coronary artery disease) Code(s): I25.10 - ATHSCL HEART DISEASE OF [place] CORONARY ARTERY W/O ANG PCTRS Status: Chronic Qualifiers: Coronary Disease-Associated Artery/Lesion type: bypass graft [place] vs. transplanted heart: [place] heart Associated angina: without angina Qualified Code(s): I25.810 - Atherosclerosis of coronary artery bypass graft(s) without angina pectoris (4) DM2 (diabetes mellitus, type 2) Status: Chronic Qualifiers: Diabetes mellitus emt intermediate insulin use: with emt intermediate use Diabetes mellitus complication status: with unspecified complications Qualified Code(s) : E11.8 - Type 2 diabetes mellitus with unspecified complications; Z79.4 - snf (current) use of insulin; Z79.4 - snf (current) use of insulin; Z79.4 - termite control servicer (current) use of insulin; Z79.4 - termite control servicer (current) use of insulin Comment: (5) Dyslipidemia Code(s): E78.5 - HYPERLIPIDEMIA, UNSPECIFIED Status: Chronic (6) ESRD (end stage renal disease) on dialysis Code(s): N18.6 - END STAGE RENAL DISEASE; Z99.2 - DEPENDENCE ON RENAL DIALYSIS Status: Chronic (7) PVD (peripheral vascular disease) Code(s): I73.9 - PERIPHERAL VASCULAR DISEASE, UNSPECIFIED Status: Chronic - Plan had succesfull HD yesterday -: is going for graft placement in [place] today -: dc plan per nephrology advice -: is on asp, lipitor and coreg -: potassium is 4.8 this am * . Review of Systems - Medications/Allergies Allergies/Adverse Reactions: Allergies Allergy/AdvReac Type Severity Reaction Status Date / Time No Known Allergies Allergy Verified 07/15/17 02:05 Medications: Current Medications Acetaminophen (Tylenol) 650 mg PO Q4H PRN PRN Reason: Headache/Fever or Pain Last Admin: 03/11/18 13:29 Dose: 650 mg Acetaminophen (Tylenol) 650 mg PO Q4H PRN PRN Reason: Pain Hydrocodone Bitart/Acetaminophen ([place] 7.5/325) 1 tab PO Q4H PRN PRN Reason: Moderate Pain (4-6) Hydrocodone Bitart/Acetaminophen ([place] 5/325) 1 tab PO Q4H PRN PRN Reason: Pain Last Admin: 03/15/18 01:21 Dose: 1 tab Acidophilus (Floranex) 1 tab PO TID [facility] Last Admin: 03/17/18 20:04 Dose: 1 tab Aspirin (Aspirin) 325 mg PO DAILY [facility] Last Admin: 03/17/18 09:45 Dose: 325 mg Atorvastatin Calcium (Lipitor) 80 mg PO HS [facility] Last Admin: 03/17/18 20:04 Dose: 80 mg Calcium Acetate (Phoslo) 1,334 mg PO BID-[facility] Last Admin: 03/17/18 17:46 Dose: 1,334 mg Carvedilol (Coreg) 3.125 mg PO BID [facility] Last Admin: 03/18/18 05:28 Dose: 3.125 mg Cefazolin Sodium (Ancef) 2 gm SLOW IVP ONCALL-OR [facility] Cholecalciferol (Vitamin D3) 2,000 units PO DAILY [facility] Last Admin: 03/17/18 09:45 Dose: 2,000 units Famotidine (Pepcid) 20 mg PO 2100 [facility] Last Admin: 03/17/18 20:04 Dose: 20 mg Heparin Sodium (Porcine) (Heparin) 5,000 units SC BID [facility] Last Admin: 03/17/18 20:05 Dose: 5,000 units Vancomycin HCl 1.5 gm/ Sodium (Chloride) 300 mls @ 200 mls/hr IVPB ONCALL-OR [facility] Stop: 03/18/18 11:00 Gentamicin Sulfate 90 mg/ (Sodium Chloride) 102.25 mls @ 204.5 mls/hr IVPB 0900 [facility] Stop: 03/18/18 11:00 Insulin Human Lispro (Humalog) 5 units SC TID[facility] Last Admin: 03/17/18 17:46 Dose: 5 unit Lanthanum Carbonate (Fosrenol) 1,000 mg PO TID-[facility] Last Admin: 03/17/18 17:46 Dose: 1,000 mg Loratadine (Claritin) 10 mg PO DAILY [facility] Last Admin: 03/17/18 09:45 Dose: 10 mg Melatonin (Melatonin) 3 mg PO [facility] Last Admin: 03/17/18 20:05 Dose: 3 mg Metoprolol Tartrate (Lopressor) 5 mg IVP Q6H PRN PRN Reason: HR > 110 Ondansetron HCl (Zofran) 4 mg IVP Q6H PRN PRN Reason: Nausea/Vomiting Ondansetron HCl (Zofran Odt) 4 mg PO Q6H PRN PRN Reason: Nausea/Vomiting Last Admin: 03/12/18 08:58 Dose: 4 mg Tresiba Insulin 0 each SC [facility] Patiromer Calcium Sorbitex [Veltassa] 8.4 Gm 0 each PO DAILY [facility] Last Admin: 03/17/18 09:47 Dose: Not Given Risperidone (Risperidone) 0.25 mg PO [facility] Last Admin: 03/17/18 20:04 Dose: 0.25 mg Sodium Chloride (Flush - Normal Saline) 10 ml IVF Q12HR [facility] Last Admin: 03/17/18 22:46 Dose: Not Given Sodium Chloride (Flush - Normal Saline) 10 ml IVF PRN PRN PRN Reason: Saline Flush Vitamin B Complex/Vit C/Folic Acid (Nephro-Anel Tablet) 1 tab PO DAILY [facility] Last Admin: 03/17/18 09:45 Dose: 1 tab
--- NOTE | 2018-03-18 10:58 | PRG ---
DATE OF SERVICE: 03/18/2018 SUBJECTIVE: This is a 42-year-old gentleman being seen for end-stage renal disease. The patient den ies any nausea, vomiting or chest pain. PHYSICAL EXAMINATION: GENERAL: Patient is awake, alert. VITAL SIGNS: Afebrile, pulse 70, breathing 16, blood pressure 113/66. HEAD/NECK: Normocephalic. Atraumatic. EYES: EOMI. No deformity. EARS: Clear. No ulcers. NOSE: Intact. No lesions. MOUTH: Clear. No discharge. THROAT: Clear. No exudate. LUNGS: Clear. No crackles. CARDIAC: S1, S2. No rub. ABDOMEN: Benign. BS+. GENITALIA/RECTUM: Mei absent. BACK/EXTREMITIES: Edema 0+ Ulcer- NEUROLOGICAL: Alert and motor intact. SKIN: Rash- Bruise- LYMPHATICS: Edema- Ulcer- LABORATORY DATA: Hemoglobin 12.1, potassium 4.8. ASSESSMENT AND RECOMMENDATIONS: 1. End-stage renal disease. Continue hemodialysis. 2. Hypertension, stable. 3. Anemia, stable. 4. Hyperkalemia, stable. No indication for dialysis.
[2018-03-18] MEDS ORDERED: Midazolam HCl 2 mg/2 ml Vial ONE (11:09)
[2018-03-18] MEDS ORDERED: Fentanyl 100 MCG/2 ML VIAL ONE (11:09)
[2018-03-18] MEDS ORDERED: Protamine Sulfate 50 MG/5 ML VIAL ONE (11:20)
[2018-03-18] MEDS ORDERED: Heparin 5,000 UNITS/ML VIAL ONE (11:20)
[2018-03-18] MEDS ORDERED: Gentamicin 80 MG/2 ML VIAL ONE (11:46)
[2018-03-18] MEDS ORDERED: HYDROmorphone 0.5 MG/0.5 ML SYRINGE ONE (12:51)
[2018-03-18] MEDS ORDERED: HYDROmorphone 2 MG/ML VIAL SLOW IVP PRN (13:53)
[2018-03-18] MEDS ORDERED: Ondansetron HCl/PF 4 MG/2 ML Vial IVP PRN (13:53)
[2018-03-18] MEDS ORDERED: Promethazine HCl 25 MG/ML VIAL IM PRN (13:53)
[2018-03-18] MEDS ORDERED: Promethazine HCl 25 MG/ML VIAL SLOW IVP PRN (13:53)
[2018-03-18] MEDS ORDERED: Morphine Sulfate 2 MG/ML SYRINGE SLOW IVP PRN (13:53)
[2018-03-18] MEDS ORDERED: Meperidine HCl/PF 25 MG/ML VIAL SLOW IVP PRN (13:53)
[2018-03-18] MEDS ORDERED: Heparin 10,000 UNITS/ 10 ML VIAL ONE ×2 (14:13→14:26)
[2018-03-18] MEDS ORDERED: PROPOFOL 200 MG/20 ML VIAL ONE (14:26)
[2018-03-18] MEDS ORDERED: Lidocaine 1% PF 5 ML VIAL ONE (14:26)
[2018-03-18] MEDS ORDERED: ePHEDrine/0.9% NaCl/PF SYRINGE 50 mg/10 ml ONE (14:26)
[2018-03-18] MEDS ORDERED: PHENYLEPHRINE-NS 100 MCG/ML 10 ML SYRINGE ONE (14:26)
[2018-03-18] MEDS: Calcium Acetate 667 MG CAP PO SCH ×2 (14:48→17:02)
[2018-03-18] MEDS: Lanthanum Carbonate 500 mg Tablet PO SCH ×2 (14:49→17:02)
[2018-03-18] MEDS: Aspirin 325 MG TAB PO SCH (14:49)
[2018-03-18] MEDS: HumaLOG 300 UNITS/3 ML VIAL SC SCH ×2 (14:49→17:04)
[2018-03-18] MEDS: Patiromer Calcium Sorbitex [Veltassa] 8.4 GM PO SCH (14:50)
[2018-03-18] MEDS: Heparin 5,000 UNITS/ML VIAL SC SCH ×2 (14:50→22:44)
[2018-03-18] MEDS: Folic Acid/Vit B Comp W-C PO SCH (16:55)
[2018-03-18] MEDS: Loratadine 10 MG TAB PO SCH (16:55)
[2018-03-18] MEDS: Ondansetron ODT 4 MG TAB PO PRN (17:01)
[2018-03-18] MEDS ORDERED: Insulin Glargine 50 UNITS in Pre-Filled Syringe 1 EACH SC SCH (21:00)
[2018-03-18] MEDS: Atorvastatin Calcium 40 MG TAB PO SCH (22:43)
[2018-03-18] MEDS: Famotidine 20 MG TAB PO SCH (22:44)
[2018-03-18] MEDS: risperiDONE 0.25 MG TAB PO SCH (22:46)
[2018-03-18] MEDS: Melatonin 3 MG TAB PO SCH (23:11)
[2018-03-19] MEDS: Acetaminophen 325 MG TAB PO PRN (04:42)
[2018-03-19 07:47] VITALS: TEMP 99.3
[2018-03-19] MEDS: Lactinex Tablet PO SCH ×2 (08:51→17:03)
[2018-03-19] MEDS: Lanthanum Carbonate 500 mg Tablet PO SCH ×2 (08:52→13:42)
[2018-03-19] MEDS: Carvedilol 3.125 MG TAB PO SCH (08:52)
[2018-03-19] MEDS: Folic Acid/Vit B Comp W-C PO SCH (08:52)
[2018-03-19] MEDS: Calcium Acetate 667 MG CAP PO SCH (08:52)
[2018-03-19] MEDS: Loratadine 10 MG TAB PO SCH (08:52)
[2018-03-19] MEDS: Aspirin 325 MG TAB PO SCH (08:53)
[2018-03-19] MEDS: HumaLOG 300 UNITS/3 ML VIAL SC SCH ×2 (08:53→13:41)
[2018-03-19] MEDS: Heparin 5,000 UNITS/ML VIAL SC SCH (08:53)
[2018-03-19] MEDS: Patiromer Calcium Sorbitex [Veltassa] 8.4 GM PO SCH (09:03)
--- NOTE | 2018-03-19 09:08 | PRG ---
DATE OF SERVICE: 03/19/2018 SUBJECTIVE: Mr. Tolbert is doing well today. He denies any pain. OBJECTIVE: VITAL SIGNS: 99.3 degrees, 87, 114/62. LUNGS: Clear to auscultation. CARDIAC: Regular rate and rhythm without murmur or gallop. ABDOMEN: Soft. EXTREMITIES: Left thigh wound. Good thrill and bruit in the dialysis graft. Surgical wounds were c lean and dry. LABORATORY DATA: No laboratories this morning. ASSESSMENT AND PLAN: The patient is doing well after left thigh dialysis graft placement. Continue to dialyze using his hemodialysis catheter. We plan to see him in three weeks and at the time if his graft is doing well, we can release the dialysis unit to began outpatient dialysis using his graft a t that time. At this point, I will see him as needed this hospitalization. The patient is ready for discharge home from a surgical standpoint.
--- NOTE | 2018-03-19 10:01 | OP ---
DATE OF OPERATION: 03/18/2018 PREOPERATIVE DIAGNOSES: End-stage renal disease, hemodialysis catheter dependent, occluded left axil denise artery, right arm, this is only function in his arm, neuropathic ulceration both fee t. PROCEDURES: Left thigh dialysis graft, tapered PTFE 4P07, femoral artery loop, thigh to femoral vein . SURGEON: Brayan Graham MD ANESTHESIA: General LMA. Local 0.25% Marcaine with epinephrine 60 mL mixed with 2% Xylocaine, 40 mL total volume mixture used. PROCEDURE IN DETAIL: Patient was taken to the operating room under general anesthesia after receivin g vancomycin, gentamicin, pannus was taped cephalad. Left groin, lower abdomen, thigh, hip prepared with chloraprep and draped in routine fashion. Ioban was used. Incision was made in the left groin, carried down through the skin and subcutaneous tissue, identifying the femoral artery which was very deep. Femoral vein and femoral artery dissected free. Superficial femoral artery identified. I co uld not find the profunda femoral arteries that must have had a high bifurcation. A [place] tunne ler was used to create a tunnel, tunneling the tapered graft, placing the 4 mm arterial inflow near t he femoral artery laterally. A counter incision was made inferiorly to facilitate. Once the graft w as placed in proper position, patient was given 6000 units of heparin intravenously. After adequate circulation time, the femoral vein clamped proximally and distally and longitudinal venotomy was made sharply and elongated for a 4 cm anastomosis to the 7 mm end of the graft spatulated accordingly, en d graft to side vein anastomosis created with continuous suture of 5-0 Prolene. Vascular clamps were released and there was good flow in the graft. Graft was clamped to the counter incision. Femoral artery was clamped proximally and distally. Longitudinal arteriotomy was made sharply for a 2.5 to 3 cm anastomosis. End graft 4 mm end tailored for the anastomosis. Continuous suture of 5-0 Prolene used for the anastomosis. Once this was completed, venous backflow released filling the graft. Raysa rial foreflow released. There was good hemostasis. The patient was given 25 mg of protamine intrave nously by Anesthesia. Subcutaneous tissues were anesthetized with local anesthetic and subcutaneous tissues in the groin closed in three layers with continuous suture of 3-0 Monocryl and skin with cont inuous subcuticular suture of 4-0 Monocryl and DermaGlue applied. Counter incision was closed likewi se. Patient tolerated the procedure well.
--- NOTE | 2018-03-19 10:43 | PDOC.PN ---
- Subjective Encounter Start Date: 03/19/18 Encounter Start Time: 09:00 Subjective: no sob or palpitations - Objective Resuscitation Status: Resuscitation Status DNI:No Intubation MAR Reviewed: Yes Vital Signs & Weight: Vital Signs (12 hours) Temp Pulse Resp BP Pulse Ox 03/19/18 07:43 99.3 F 87 18 114/62 97 03/19/18 03:13 97.4 F L 101 H 21 H 117/59 L 96 03/19/18 00:00 99.2 F 94 20 100/57 L 99 Weight Admit Weight 311 lb 4.683 oz Weight 294 lb 14.4 oz Most Recent Monitor Data Heart Rate from ECG 97 NIBP 158/98 NIBP BP-Mean 112 Respiration from ECG 18 SpO2 93 I&O: 03/18/18 03/19/18 03/20/18 06:59 06:59 06:59 Intake Total 1038 844 Output Total 2700 0 Balance -1662 844 Result Diagrams: 03/18/18 04:59 03/18/18 04:59 Additional Labs: Accuchecks 03/19/18 03/18/18 03/18/18 05:56 22:43 16:26 POC Glucose 195 H 118 H 117 H 03/16/18 05:55 POC Glucose 130 H Phys Exam - Physical Examination HEENT: moist MMs, sclera anicteric Neck: no JVD, supple Respiratory: no wheezing, no rales Cardiovascular: RRR, no significant murmur Gastrointestinal: soft, non-tender, positive bowel sounds Musculoskeletal: pulses present left thigh graft+ Neurological: non-focal, moves all 4 limbs Psychiatric: normal affect, A&O x 3 Dx/Plan (1) Hyperkalemia Code(s): E87.5 - HYPERKALEMIA Status: Resolved (2) Anemia of renal disease Code(s): D63.1 - ANEMIA IN CHRONIC KIDNEY DISEASE Status: Chronic (3) CAD (coronary artery disease) Code(s): I25.10 - ATHSCL HEART DISEASE OF [place] CORONARY ARTERY W/O ANG PCTRS Status: Chronic Qualifiers: Coronary Disease-Associated Artery/Lesion type: bypass graft [place] vs. transplanted heart: [place] heart Associated angina: without angina Qualified Code(s): I25.810 - Atherosclerosis of coronary artery bypass graft(s) without angina pectoris (4) DM2 (diabetes mellitus, type 2) Status: Chronic Qualifiers: Diabetes mellitus halfway insulin use: with halfway use Diabetes mellitus complication status: with unspecified complications Qualified Code(s) : E11.8 - Type 2 diabetes mellitus with unspecified complications; Z79.4 - halfway (current) use of insulin; Z79.4 - halfway (current) use of insulin; Z79.4 - rn long term care (current) use of insulin; Z79.4 - halfway (current) use of insulin Comment: (5) Dyslipidemia Code(s): E78.5 - HYPERLIPIDEMIA, UNSPECIFIED Status: Chronic (6) ESRD (end stage renal disease) on dialysis Code(s): N18.6 - END STAGE RENAL DISEASE; Z99.2 - DEPENDENCE ON RENAL DIALYSIS Status: Chronic (7) PVD (peripheral vascular disease) Code(s): I73.9 - PERIPHERAL VASCULAR DISEASE, UNSPECIFIED Status: Chronic - Plan hemostable -: d/w , is ok for dc to [facility] today -: to continue HD as before * . Review of Systems - Medications/Allergies Allergies/Adverse Reactions: Allergies Allergy/AdvReac Type Severity Reaction Status Date / Time No Known Allergies Allergy Verified 07/15/17 02:05 Medications: Current Medications Acetaminophen (Tylenol) 650 mg PO Q4H PRN PRN Reason: Headache/Fever or Pain Last Admin: 03/19/18 04:42 Dose: 650 mg Hydrocodone Bitart/Acetaminophen ([place] 7.5/325) 1 tab PO Q4H PRN PRN Reason: Moderate Pain (4-6) Last Admin: 03/18/18 17:03 Dose: 1 tab Hydrocodone Bitart/Acetaminophen ([place] 5/325) 1 tab PO Q4H PRN PRN Reason: Pain Last Admin: 03/15/18 01:21 Dose: 1 tab Acidophilus (Floranex) 1 tab PO TID [facility] Last Admin: 03/19/18 08:51 Dose: 1 tab Aspirin (Aspirin) 325 mg PO DAILY [facility] Last Admin: 03/19/18 08:53 Dose: 325 mg Atorvastatin Calcium (Lipitor) 80 mg PO HS [facility] Last Admin: 03/18/18 22:43 Dose: 80 mg Calcium Acetate (Phoslo) 1,334 mg PO BID[facility] Last Admin: 05/10/18 08:52 Dose: 1,334 mg Carvedilol (Coreg) 3.125 mg PO BID [facility] Last Admin: 03/19/18 08:52 Dose: 3.125 mg Cefazolin Sodium (Ancef) 2 gm SLOW IVP ONCALL-OR [facility] Cholecalciferol (Vitamin D3) 2,000 units PO DAILY [facility] Last Admin: 03/19/18 08:51 Dose: 2,000 units Famotidine (Pepcid) 20 mg PO 2100 [facility] Last Admin: 03/18/18 22:44 Dose: 20 mg Heparin Sodium (Porcine) (Heparin) 5,000 units SC BID [facility] Last Admin: 03/19/18 08:53 Dose: 5,000 units Insulin Glargine 50 units/ (Miscellaneous Medication) 0.5 mls @ 0 mls/hr SC [facility] Last Admin: 03/18/18 23:06 Dose: 0.5 mls Insulin Human Lispro (Humalog) 5 units SC TID[facility] Last Admin: 03/19/18 08:53 Dose: 5 unit Lanthanum Carbonate (Fosrenol) 1,000 mg PO TID[facility] Last Admin: 03/19/18 08:52 Dose: 1,000 mg Loratadine (Claritin) 10 mg PO DAILY [facility] Last Admin: 03/19/18 08:52 Dose: 10 mg Melatonin (Melatonin) 3 mg PO [facility] Last Admin: 03/18/18 23:11 Dose: Not Given Metoprolol Tartrate (Lopressor) 5 mg IVP Q6H PRN PRN Reason: HR > 110 Ondansetron HCl (Zofran) 4 mg IVP Q6H PRN PRN Reason: Nausea/Vomiting Ondansetron HCl (Zofran Odt) 4 mg PO Q6H PRN PRN Reason: Nausea/Vomiting Last Admin: 03/18/18 17:01 Dose: 4 mg Patiromer Calcium Sorbitex [Veltassa] 8.4 Gm 0 each PO DAILY [facility] Last Admin: 03/19/18 09:03 Dose: Not Given Risperidone (Risperidone) 0.25 mg PO [facility] Last Admin: 03/18/18 22:46 Dose: 0.25 mg Sodium Chloride (Flush - Normal Saline) 10 ml IVF Q12HR [facility] Last Admin: 03/19/18 09:03 Dose: 10 ml Sodium Chloride (Flush - Normal Saline) 10 ml IVF PRN PRN PRN Reason: Saline Flush Vitamin B Complex/Vit C/Folic Acid (Nephro-Anel Tablet) 1 tab PO DAILY [facility] Last Admin: 03/19/18 08:52 Dose: 1 tab
--- NOTE | 2018-03-19 11:15 | PRG ---
DATE OF SERVICE: 03/19/2018 SUBJECTIVE: This is a 42-year-old gentleman being seen for end-stage renal disease. The patient den ies any nausea, vomiting or chest pain. PHYSICAL EXAMINATION: GENERAL: The patient is awake, alert. VITAL SIGNS: Afebrile, pulse 75, breathing 16, blood pressure was 114/62. OBJECTIVE: See above. Awake, alert, in no acute distress. GENERAL APPEARANCE AND MENTAL STATUS: Fair. HEAD/NECK: Normocephalic. Atraumatic. EYES: EOMI. No deformity. EARS: Clear. No ulcers. NOSE: Intact. No lesions. MOUTH: Clear. No discharge. THROAT: Clear. No exudate. LUNGS: Clear. No crackles. CARDIAC: S1, S2. No rub. ABDOMEN: Benign. BS+. GENITALIA/RECTUM: Mei absent. BACK/EXTREMITIES: Edema 0+ Ulcer- NEUROLOGICAL: Alert and motor intact. SKIN: Rash- Bruise- LYMPHATICS: Edema- Ulcer- LABORATORY: Hemoglobin 12.1. ASSESSMENT AND RECOMMENDATIONS: 1. Stage 6 chronic kidney, continue hemodialysis. 2. Hypertension, stable. 3. Anemia, stable. 4. Hyperkalemia, stable.
[2018-03-19 15:29] VITALS: BP 126/66
--- NOTE | 2018-03-20 21:59 | DIS ---
DATE OF ADMISSION: 03/10/2018 DATE OF DISCHARGE: 03/19/2018 DISCHARGE DISPOSITION: To longterm. PRIMARY DISCHARGE DIAGNOSES: Hyperkalemia, resolved. Volume overload, resolved. SECONDARY DISCHARGE DIAGNOSES: End-stage renal disease on hemodialysis, dyslipidemia, diabetes mellitus type 2, coronary artery disease, peripheral vascular disease, chronic anemia due to renal disease. PROCEDURES DONE DURING HOSPITALIZATION: Patient has had removal of right IJ cuffed tunnel dialysis catheter and placement of new right IJ cuffed tunneled dialysis catheter which is slightly longer done on 03/16/[address] Graham. He has had placement of left thigh dialysis graft, femoral artery loop tied to femoral vein done by Dr. Brayan Graham on 03/18/2018. Chest x-ray done on the day of admission showed cardiomegaly with pulmonary vascular congestion. Blood cultures x2 no growth. H&H 12 and 36, platelet count 172. Haptoglobin 289. Retic count was 1.8. Discharge potassium is 4.8 on the , BUN 49, creatinine 6.8. Had potassium of greater than 9.5 on the when he got admitted with BUN of 165, creatinine of 15.7, serum bicarbonate of 10. HBS antigen was nonreactive. DISCHARGE MEDICATIONS: Aspirin 325 mg p.o. daily, Lipitor 80 mg p.o. at bedtime , PhosLo 1334 mg p.o. twice daily, Coreg 3.125 mg p.o. twice daily, cetirizine 10 mg daily, vitamin D3 of 2000 units p.o. daily, Colace 100 mg p.o. daily, Humalog 5 units subQ 3 times daily, [place] p.r.n. for pain, Tresiba 50 units subcutaneously at bedtime, lanthanum carbonate 1000 mg p.o. 3 times daily, melatonin 3 mg p.o. at bedtime, MiraLax 17 grams daily, Risperdal 0.25 mg p.o. at bedtime. ALLERGIES: No known drug allergies. INPATIENT CONSULTS: Dr. Pearce for Nephrology. Dr. Rico for Pulmonary and Critical Care. Dr. Graham for General Surgery/Vascular Surgery. BRIEF COURSE DURING HOSPITALIZATION: Patient initially got admitted on the after he was sent from longterm for complaints of diarrhea. In the ER, he was noted to have a potassium of 8.1 with uremic symptoms and elevated BUN and creatinine. Patient was initially admitted to ICU and nephrology consultation with Dr. Pearce was requested. He has had back to back hemodialysis done during the first 3 days despite which, his hyperkalemia was not resolving. His right IJ catheter was removed and a new IJ catheter was placed. After this, hemodialysis done promptly corrected his potassium. Likely it was an issue with dialysis access which resulted in his hyperkalemia, volume overload. Patient has had a thigh graft placed as well by Dr. Graham on the . He needs to follow up with Dr. Graham as advised. He was counseled with regards to compliance with diet and hemodialysis sessions. He has been cleared by Dr. Diaz for discharge and will be shortly discharged back to the longterm. He is from [facility] and rehabilitation. A total of 35 minutes was spent on discharge plan. Please see a face to face documentation on [facility] for the day of discharge. MI
== END 2018-03-19 15:09 | DRG 252 ==
LOC: ERS 13:19 → CCU 14:51 → 2NO 03-11 18:40
PROVIDERS: ADMIT Family Medicine; ATTEND Family Medicine
PROC: 5A1D70Z Performance of Urinary Filtration, Intermittent, Less than 6 Hours Per Day (ICD-10-PCS; 2018-03-10)
PROC: 5A09357 Assistance with Respiratory Ventilation, Less than 24 Consecutive Hours, Continuous Positive Airway Pressure (ICD-10-PCS; 2018-03-10)
PROC: 5A1D70Z Performance of Urinary Filtration, Intermittent, Less than 6 Hours Per Day (ICD-10-PCS; 2018-03-11)
PROC: 5A1D70Z Performance of Urinary Filtration, Intermittent, Less than 6 Hours Per Day (ICD-10-PCS; 2018-03-13)
PROC: 5A1D70Z Performance of Urinary Filtration, Intermittent, Less than 6 Hours Per Day (ICD-10-PCS; 2018-03-14)
PROC: 05PYX3Z Removal of Infusion Device from Upper Vein, External Approach (ICD-10-PCS; 2018-03-16)
PROC: 05HM33Z Insertion of Infusion Device into Right Internal Jugular Vein, Percutaneous Approach (ICD-10-PCS; 2018-03-16)
PROC: 5A1D70Z Performance of Urinary Filtration, Intermittent, Less than 6 Hours Per Day (ICD-10-PCS; 2018-03-16)
PROC: 5A1D70Z Performance of Urinary Filtration, Intermittent, Less than 6 Hours Per Day (ICD-10-PCS; 2018-03-17)
PROC: 041L0JS Bypass Left Femoral Artery to Lower Extremity Vein with Synthetic Substitute, Open Approach (ICD-10-PCS; principal; 2018-03-18)
PROC: 5A1D70Z Performance of Urinary Filtration, Intermittent, Less than 6 Hours Per Day (ICD-10-PCS; 2018-03-18)
DX: T82.49XA Other complication of vascular dialysis catheter, initial encounter (principal); N18.6 End stage renal disease; J96.01 Acute respiratory failure with hypoxia; Z68.41 Body mass index [BMI] 40.0-44.9, adult; E87.2 Acidosis; I12.0 Hypertensive chronic kidney disease with stage 5 chronic kidney disease or end stage renal disease; E87.5 Hyperkalemia; E87.70 Fluid overload, unspecified; E11.22 Type 2 diabetes mellitus with diabetic chronic kidney disease; E78.5 Hyperlipidemia, unspecified; I25.10 Atherosclerotic heart disease of native coronary artery without angina pectoris; E66.01 Morbid (severe) obesity due to excess calories; G83.24 Monoplegia of upper limb affecting left nondominant side; R19.7 Diarrhea, unspecified; E11.51 Type 2 diabetes mellitus with diabetic peripheral angiopathy without gangrene; D63.1 Anemia in chronic kidney disease; Z99.2 Dependence on renal dialysis; Z91.15 Patient's noncompliance with renal dialysis; Z79.82 Long term (current) use of aspirin; Z79.4 Long term (current) use of insulin; Z79.899 Other long term (current) drug therapy; Z95.2 Presence of prosthetic heart valve; Z95.1 Presence of aortocoronary bypass graft; Y83.8 Other surgical procedures as the cause of abnormal reaction of the patient, or of later complication, without mention of misadventure at the time of the procedure
CPT/HCPCS: 36415; 36416; 71045; 80048; 80053; 80069; 81003; 81015; 82247; 82248; 82330; 82553; 82803; 82805; 83010; 83605; 83615; 83735; 83880; 84100; 84484; 84550; 85025; 85046; 85610; 85730; 86850; 86900; 86901; 87040; 87086; 87340; 90471; 90670; 90935; 93005; 94644; 94660; 94760; 96374; 96375; 99292; A4216; C1752; C1769; G0009; G0257; G8978-GP-CM; G8979-GP-CJ; G8987-GO-CL; G8988-GO-CK; J0670; J1170; J1580; J1644; J1650; J1815; J2001; J2250; J2704; J2720; J2997; J3010; J3370; J7050; J7611; L8670; Q0162

== ENCOUNTER 2018-08-21 11:54 | Inpatient (IN) | payer OTHER, MEDICARE, MEDICAID ==
[2018-08-21] MEDS ORDERED: Cyclobenzaprine 10 MG TAB ONE (13:53)
[2018-08-21] MEDS ORDERED: Piperacillin/Tazobactam 4.5 GM VIAL ONE (14:35)
[2018-08-21 15:44] LABS: BUN (Urea Nitrogen) 130 mg/dL (8.9-20.6)
[2018-08-21 15:46] LABS: Anion Gap 29 mmol/L (10-20); Carbon Dioxide 15 mmol/L (22-29); Chloride 103 mmol/L (98-107); Potassium 8.1 mmol/L (3.5-5.1); Sodium 139 mmol/L (136-145)
[2018-08-21 15:47] LABS: ALT (SGPT) 15 U/L (8-55); AST (SGOT) 10 U/L (5-34); Albumin 3.9 g/dL (3.5-5.0); Alkaline Phosphatase 148 U/L (40-150); Bilirubin, Total 0.5 mg/dL (0.2-1.2); Calc. Creatinine Clearance 0 mL/min (70-130); Calcium 9.3 mg/dL (7.8-10.44); Estimated GFR-MDRD 4; Globulin 3.4 g/dL (2.4-3.5); Glucose 97 mg/dL (70-105); Protein, Total 7.3 g/dL (6.0-8.3)
--- NOTE | 2018-08-21 16:05 | RAD ---
PORTABLE CHEST: Date: 08/21/18 INDICATION: Dyspnea. COMPARISON: 03/16/18. FINDINGS: Cardiomegaly with vascular congestion. Probable small effusions. Evidence of interstitial edema. Incr eased density overlying the right hilum may be due to positioning and exposure, although I cannot exc lude more confluent infiltrate or other etiologies. Consider upright PA and lateral views for better evaluation if possible. IMPRESSION: There is cardiomegaly with vascular congestion. Right heart border is obscured and I cannot exclude m ass or infiltrate in the right perihilar region. Recommend upright PA and lateral views of chest if p ossible. Otherwise, recommend close follow-up. POS: KYLE
[2018-08-21] MEDS ORDERED: Insulin Regular 300 UNITS/3 ML VIAL ONE (16:06)
[2018-08-21] MEDS ORDERED: Dextrose 50% Abboject 50 ML SYRINGE ONE ×2 (16:07→16:10)
[2018-08-21 16:16] LABS: CKMB 9.6 ng/mL (0-6.6)
[2018-08-21] MEDS ORDERED: Lidocaine-Prilocaine 2.5% Cream 5 GM TUBE TOP SCH (17:00)
[2018-08-21 17:01] LABS: #Basophils 0.1 thou/uL (0.0-0.2); #Eosinphils 0.1 thou/uL (0.0-0.7); #Monocytes 0.9 thou/uL (0.11-0.59); #Neutrophils 9.8 thou/uL (1.40-6.50); %Basophils 0.6 % (0.0-1.0); %Eosinophils 0.8 % (0.0-10.0); %Lymphocytes 8.4 % (21.0-51.0); %Monocytes 7.2 % (0.0-10.0); Hemoglobin 9.9 g/dL (14.0-18.0); Mean Corpuscular HGB CONC 30.6 g/dL (32.0-36.0); Mean Corpuscular Hemoglobin 29.3 pg (27.0-31.0); Mean Corpuscular Volume 95.9 fL (78.0-98.0); Mean Platelet Volume 8.8 fL (7.4-10.4); Platelet Count 201 thou/uL (130-400); RBC Distribution Width 14.2 % (11.5-14.5); Red Blood Cell (RBC) Count 3.39 mill/uL (4.70-6.10); White Blood Cell (WBC) Count 11.8 thou/uL (4.8-10.8)
[2018-08-21] MEDS ORDERED: Bisacodyl 5 MG TAB PO PRN (18:36)
[2018-08-21] MEDS ORDERED: Dextrose 5% in Water 1,000 ML IV PRN (18:36)
[2018-08-21] MEDS ORDERED: Acetaminophen 325 MG TAB PO PRN (18:36)
[2018-08-21] MEDS ORDERED: Dextrose 50% Abboject 50 ML SYRINGE SLOW IVP PRN (18:36)
[2018-08-21] MEDS ORDERED: Guaifenesin DM 100-10/5 ML UDCUP PO PRN (18:36)
[2018-08-21] MEDS ORDERED: Senokot S 8.6-50 MG TAB PO PRN (18:36)
[2018-08-21] MEDS ORDERED: Docusate 100 MG CAP PO PRN (18:36)
[2018-08-21] MEDS ORDERED: HumaLOG 300 UNITS/3 ML VIAL SC PRN ×2 (18:36)
[2018-08-21] MEDS ORDERED: INSULIN DEGLUDEC 50 UNIT SQ SCH (21:00)
[2018-08-21 22:13] VITALS: BMI 49.6
[2018-08-21] MEDS: Heparin 5,000 UNITS/ML VIAL SC SCH (22:15)
[2018-08-21] MEDS: Atorvastatin Calcium 40 MG TAB PO SCH (22:15)
[2018-08-21] MEDS: risperiDONE 0.25 MG TAB PO SCH (22:15)
[2018-08-21] MEDS: Carvedilol 3.125 MG TAB PO SCH (22:15)
[2018-08-21] MEDS: Insulin Glargine 50 UNITS in Pre-Filled Syringe 1 EACH SC SCH (22:25)
[2018-08-21] MEDS: Melatonin 3 MG TAB PO SCH (22:32)
[2018-08-21] MEDS ORDERED: Vancomycin HCl 750 MG in Sodium Chloride 0.9% 250 ML 250 ML IVPB SCH (22:45)
[2018-08-21] MEDS ORDERED: Vancomycin HCl 1 GM in Premix Bag 1 BAG IVPB SCH (22:45)
[2018-08-21] MEDS ORDERED: Vancomycin Sliding Scale 1 EACH FS ONE (22:45)
[2018-08-21] MEDS ORDERED: HOLD VANCOMYCIN FOR LEVEL >20 FS SCH (22:45)
[2018-08-21] MEDS ORDERED: Vancomycin HCl 1.25 GM in Sodium Chloride 0.9% 250 ML 250 ML IVPB SCH (22:45)
[2018-08-21] MEDS ORDERED: Vancomycin HCl 1.5 GM in Sodium Chloride 0.9% 250 ML 300 ML IVPB SCH (22:45)
--- NOTE | 2018-08-21 23:40 | HP ---
REASON FOR ADMISSION: Volume overload, hyperkalemia. HISTORY OF PRESENTING ILLNESS: Patient was essentially sent from dialysis center as his blood pressure was 200/130. They did not dialyze him and patient was transferred here. On arrival here, the patient was found to have had potassium of 8.1, BUN of 113, creatinine of 13. The patient has put on nearly 17 kilos of extra weight per Dr. Pearce whom I have just discussed with, his clinical instructor. Currently, he has no complaints of chest pain or palpitation, but has extreme shortness of breath. He has been admitted here multiple times. 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 PERSONAL HISTORY: Does not abuse alcohol or drugs. No history of smoking. Patient is a resident of [facility]. FAMILY HISTORY: Positive for diabetes and hypertension. ALLERGIES: No known drug allergies. CURRENT MEDICATIONS: Please note patient does not recall any of his medications prior to discharge, he was on aspirin 325 mg daily, atorvastatin 80 mg p.o. at bedtime, PhosLo 1334 mg p.o. twice daily, Coreg 3.125 mg p.o. twice daily, cetirizine 10 mg daily, vitamin D3 2000 units p.o. daily, Colace 100 mg daily, Joana-Anel 0.8 mg p.o. daily, Humalog 5 units 3 times daily subcutaneous, [place] 5/325 mg 1 tab p.o. q.4 hours p.r.n., Tresiba 50 units subcutaneously at bedtime, lanthanum 1000 mg p.o. 3 times daily, melatonin 3 mg p.o. at bedtime, MiraLax 17 grams daily, Risperdal 0.25 mg p.o. at bedtime. CODE STATUS: DNR. I have discussed this with the patient at bedside. REVIEW OF SYSTEMS: The following complete review of systems was negative, unless otherwise mentioned in the HPI or below: Constitutional: Weight loss or gain, ability to conduct usual activities. Skin: Rash, itching. Eyes: Double vision, pain. ENT/Mouth: Nose bleeding, neck stiffness, pain, tenderness. Cardiovascular: Palpitations, dyspnea on exertion, orthopnea. Respiratory: Shortness of breath, wheezing, cough, hemoptysis, fever or night sweats. Gastrointestinal: Poor appetite, abdominal pain, heartburn, nausea, vomiting, constipation, or diarrhea. Genitourinary: Urgency, frequency, dysuria, nocturia. Musculoskeletal: Pain, swelling. Neurologic/Psychiatric: Anxiety, depression. Allergy/Immunologic: Skin rash, bleeding tendency. PHYSICAL EXAMINATION: GENERAL: Patient is a 42-year-old male who is currently getting emergency dialysis in the dialysis center. VITAL SIGNS: Blood pressure 175/74, pulse 88 per minute, respiratory rate 18 per minute, temperature 98.1 degrees Fahrenheit, saturating 94% on room air. NECK: Supple. There is elevated JVD. EYES: Extraocular muscles intact. Pupils reacting to light. ORAL CAVITY: Mucous membranes are moist. No exudates or congestion. CARDIOVASCULAR SYSTEM: S1, S2 heard. Regular rhythm. RESPIRATORY SYSTEM: Air entry 1+ bilateral. Scattered rales plus bilateral, rhonchi plus bilateral. ABDOMEN: There is abdominal wall edema. No tenderness, rigidity or guarding. EXTREMITIES: There is 2+ peripheral edema, no calf tenderness. VASCULAR SYSTEM: Peripheral pulses 1+ bilateral, no ischemic ulcerations or gangrene. CENTRAL NERVOUS SYSTEM: No gross focal deficits noted. Patient is lethargic, but oriented well. PSYCHIATRIC SYSTEM: The patient's mood is euthymic. No hallucinations or delusions. LABORATORY DATA AND IMAGING DATA: White count of 11, hemoglobin and hematocrit 10 and 32, platelet count 201, MCV is 95 with 83% neutrophils. Potassium is 8.1. Serum bicarbonate 15, BUN 130, creatinine 13.8, serum glucose 97. AST, ALT, alkaline phosphatase within normal limits. CK-MB 9.6. Troponin I 0.02. Albumin is 3.9. Chest x-ray done shows cardiomegaly with pulmonary vascular congestion. CLINICAL IMPRESSION AND PLAN: The patient will be admitted to telemetry for severe volume overload with hyperkalemia and metabolic acidosis. Likely patient is noncompliant. Has increased his dry weight by [address] Pearce. He will likely need back to back hemodialysis. We will also obtain ultrasound venous Doppler of lower extremities to rule out DVT. We will continue his aspirin, atorvastatin, PhosLo, Coreg, Colace, Nephro-Anel, lanthanum, Tresiba, melatonin, Risperdal and MiraLax as before. Blood cultures have been obtained in the ER and we will follow up on the labs. I have discussed code status with him and he wants to be a DO NOT RESUSCITATE. DHRUVD
--- NOTE | 2018-08-22 00:55 | CON ---
DATE OF CONSULTATION: 08/21/2018 CONSULTING PHYSICIAN: Sajan Segovia D.O. REASON FOR ADMISSION: Fluid overload, shortness of breath, hyperkalemia, acidosis. HISTORY OF PRESENT ILLNESS: A 42-year-old white male with history of end-stage renal disease, noncom pliance, type 2 diabetes, hypertension, hyperlipidemia, peripheral vascular disease, who came to the hospital with shortness of breath. Patient is highly noncompliant with dialysis and missed one day o f dialysis last week and was found to have 16 liters of fluid today on dialysis with shortness of ankush ath and hypoxia and was sent to the hospital for safe dialysis. The patient was found to have hyper kalemia with a potassium of 8, metabolic acidosis with a bicarbonate of 15 and anemia. Nephrology wa s consulted for emergent dialysis from the ER and the patient was taken to the dialysis for emergent dialysis. The patient was seen during dialysis, tolerating well, was very sleepy, remains fluid over loaded and currently tolerating dialysis well. No history of any nausea, vomiting, no fever or chill s. No skin rash reported. PAST MEDICAL HISTORY: End stage renal disease, peripheral vascular disease, hypertension, hyperlipid emia, type 2 diabetes, coronary artery disease. PAST SURGICAL HISTORY: Ablation of AV fistula, coronary artery bypass graft, aortic valve replacemen t, dialysis graft placement. HOME MEDICATIONS: Currently shows Risperdal, MiraLax, Zofran, Imodium, Fosrenol vitamin D3, ca rvedilol, PhosLo, atorvastatin, aspirin, Tylenol. CODE STATUS: DNR. ALLERGIES: No known drug allergies. SOCIAL HISTORY: Lives in a detention. No alcohol or drug abuse, no smoking abuse reported. FAMILY HISTORY: Positive for diabetes, hypertension. REVIEW OF SYSTEMS: The following complete review of systems was negative, unless otherwise mentioned in the HPI or below: Constitutional: Weight loss or gain, ability to conduct usual activities. Sk in: Rash, itching. Eyes: Double vision, pain. ENT/Mouth: Nose bleeding, neck stiffness, pain, te nderness. Cardiovascular: Palpitations, dyspnea on exertion, orthopnea. Respiratory: Shortness of breath, wheezing, cough, hemoptysis, fever or night sweats. Gastrointestinal: Poor appetite, abdom inal pain, heartburn, nausea, vomiting, constipation, or diarrhea. Genitourinary: Urgency, frequenc y, dysuria, nocturia. Musculoskeletal: Pain, swelling. Neurologic/Psychiatric: Anxiety, depressio n. Allergy/Immunologic: Skin rash, bleeding tendency. PHYSICAL EXAMINATION: GENERAL: This is an obese male in mild to moderate distress, seen during dialysis. VITAL SIGNS: Temperature 96, pulse 70, respiratory rate 18, blood pressure 164/94. HEENT: Atraumatic, normocephalic, puffy face. NECK: Supple. CVS: S1, S2 heard. RESPIRATORY: Coarse breath sounds. GASTROINTESTINAL: Abdomen is soft. MUSCULOSKELETAL: 2+ edema. DERMATOLOGIC: No skin rash. NEUROLOGIC: Somnolent. PSYCHIATRIC: Not assessed. LABORATORY AND X-RAY FINDINGS: Hemoglobin 9.9. Potassium is 8.0, BUN is 125 and sodium , tropo daryn 0.02. ASSESSMENT AND PLAN: 1. End-stage renal disease on hemodialysis. Plan is to have emergent dialysis. The patient might n eed daily dialysis for 3 days, but patient is highly noncompliant. The patient already is refusing t o have dialysis tomorrow. We will continue counseling. 2. Fluid overload with hypoxia and shortness of breath. The plan is to remove fluid with dialysis. 3. Severe hyperkalemia, life threatening. We will have emergent dialysis for metabolic acidosis. W e will have dialysis. 4. Anemia. 5. Obesity. 6. Noncompliance. 7. DNR status. The patient is at high risk for complications and is highly noncompliant with dialysis sessions and d iet and fluid restriction despite repeated counseling. Patient made himself DNR and we will continue counseling. Patient understands the risks. Thank you for the consult.
[2018-08-22] MEDS ORDERED: diphenhydrAMINE 25 MG CAP PO PRN (01:21)
[2018-08-22 05:25] LABS: #Basophils 0.1 thou/uL (0.0-0.2); #Eosinphils 0.3 thou/uL (0.0-0.7); #Neutrophils 7.2 thou/uL (1.40-6.50); %Basophils 0.9 % (0.0-1.0); %Eosinophils 2.9 % (0.0-10.0); %Lymphocytes 10.1 % (21.0-51.0); %Monocytes 10.6 % (0.0-10.0); %Neutrophils 75.6 % (42.0-75.0); Hemoglobin 9.1 g/dL (14.0-18.0); Mean Corpuscular Hemoglobin 30.3 pg (27.0-31.0); Mean Corpuscular Volume 94.7 fL (78.0-98.0); Mean Platelet Volume 9.1 fL (7.4-10.4); Platelet Count 187 thou/uL (130-400); Red Blood Cell (RBC) Count 3.01 mill/uL (4.70-6.10); White Blood Cell (WBC) Count 9.5 thou/uL (4.8-10.8)
[2018-08-22 05:49] LABS: Anion Gap 21 mmol/L (10-20); BUN (Urea Nitrogen) 71 mg/dL (8.9-20.6); Calc. Creatinine Clearance 25 mL/min (70-130); Calcium 8.9 mg/dL (7.8-10.44); Carbon Dioxide 22 mmol/L (22-29); Chloride 102 mmol/L (98-107); Estimated GFR-MDRD 7; Glucose 144 mg/dL (70-105); Potassium 5.8 mmol/L (3.5-5.1); Sodium 139 mmol/L (136-145)
[2018-08-22] MEDS: Calcium Acetate 667 MG CAP PO SCH ×2 (08:21→18:24)
--- NOTE | 2018-08-22 09:41 | PDOC.PN ---
- Subjective Encounter Start Date: 08/22/18 Encounter Start Time: 09:40 Breathing better. No complaints. Getting HD today. - Objective Resuscitation Status: Resuscitation Status DNR:Do Not Resuscitate Vital Signs & Weight: Vital Signs (12 hours) Temp Pulse Resp BP Pulse Ox 08/22/18 08:55 97.8 F 85 22 H 143/64 H 98 08/22/18 04:00 98.5 F 86 20 153/70 H 97 08/21/18 23:00 98.0 F 87 20 142/63 H 96 Weight Weight 344 lb 2.265 oz I&O: 08/21/18 08/22/18 08/23/18 06:59 06:59 06:59 Intake Total 500 Output Total 2505 Balance -2004 Result Diagrams: 08/22/18 04:47 08/22/18 04:47 Additional Labs: Accuchecks 08/22/18 08/21/18 05:37 21:50 POC Glucose 151 H 97 Phys Exam - Physical Examination Constitutional: NAD morbidly obese Respiratory: no wheezing, no rales, no rhonchi, clear to auscultation bilateral Cardiovascular: RRR, no significant murmur, no rub Gastrointestinal: soft, non-tender, no distention, positive bowel sounds Persistent 2+ edema to the thighs. So modestly bleeding from the nailbed of the left 4th an 5th fingers. Chronic ischemia. Dx/Plan (1) Volume overload Code(s): E87.70 - FLUID OVERLOAD, UNSPECIFIED Status: Acute (2) Obesity Code(s): E66.9 - OBESITY, UNSPECIFIED Status: Acute (3) Anemia of renal disease Code(s): D63.1 - ANEMIA IN CHRONIC KIDNEY DISEASE Status: Chronic (4) CAD (coronary artery disease) Code(s): I25.10 - ATHSCL HEART DISEASE OF [place] CORONARY ARTERY W/O ANG PCTRS Status: Chronic Qualifiers: Coronary Disease-Associated Artery/Lesion type: bypass graft [place] vs. transplanted heart: [place] heart Associated angina: without angina Qualified Code(s): I25.810 - Atherosclerosis of coronary artery bypass graft(s) without angina pectoris (5) DM2 (diabetes mellitus, type 2) Status: Chronic Qualifiers: Diabetes mellitus intermediate project manager insulin use: with intermediate project manager use Diabetes mellitus complication status: with unspecified complications Qualified Code(s) : E11.8 - Type 2 diabetes mellitus with unspecified complications; Z79.4 - terminal system operator (current) use of insulin; Z79.4 - terminal system operator (current) use of insulin; Z79.4 - residential (current) use of insulin; Z79.4 - residential (current) use of insulin Comment: (6) ESRD (end stage renal disease) on dialysis Code(s): N18.6 - END STAGE RENAL DISEASE; Z99.2 - DEPENDENCE ON RENAL DIALYSIS Status: Chronic (7) Hyperkalemia, diminished renal excretion Code(s): E87.5 - HYPERKALEMIA Status: Chronic Comment: persistant after three back to back HD. pt has likely hemolysis, elevated Retic count, Bili normal, LDH elevated,Haptoglobulin pending, peripheral smear pending. See plan Above. - Plan * Potassium improved, but still high. * Still very volume overloaded, but breathing is better. * Daily HD for now. Nephrology following.
[2018-08-22] MEDS: Lanthanum Carbonate 500 mg Tablet PO SCH ×3 (09:51→18:26)
--- NOTE | 2018-08-22 10:27 | ULT ---
ULTRASOUND WITH DOPPLER DUPLEX VENOUS LOWER EXTREMITY BILATERAL: CPT: 14789 ICD-10-PCS: B54D INDICATION: History of prior surgery with edema. TECHNIQUE: Color flow Doppler, spectral waveform analysis of pulsed Doppler, and rachel-scale imaging with dusty ankush and augmentation, were used to evaluate the bilateral common femoral, femoral, popliteal, electric motor assembler ior tibial, and superficial femoral, veins; and the proximal portions of the profunda femoral and gre ater saphenous, veins. FINDINGS: Within the imaged aspects of the deep vein system of each lower extremity, there is no deep venous th rombosis identified. There is marked limitation due to patient body habitus, as well as inability to tolerate positioning for the exam. This does preclude assessment of portions of the deep vein system and augmentation could not be performed. IMPRESSION: There is limited assessment as discussed above, although within the visualized aspects of the deep ve in system of each lower extremity, there is no deep venous thrombosis evident. POS: [facility]
[2018-08-22] MEDS: Heparin 5,000 UNITS/ML VIAL SC SCH ×3 (10:56→20:51)
[2018-08-22] MEDS: HYDROcodone/Acetaminophen 5/325 mg Tablet PO PRN ×2 (10:57→16:25)
--- NOTE | 2018-08-22 11:05 | PRG ---
DATE OF SERVICE: 08/22/2018 SUBJECTIVE: Patient was seen and examined at bedside and overnight events noted. Patient denies any shortness of breath or chest pain or palpitation. No history of nausea or vomiting or diarrhea or f ever or chills or cramps. OBJECTIVE: GENERAL: This is an obese male in no apparent distress. VITAL SIGNS: Temperature 98.5, pulse 76, respiratory rate 18, blood pressure 153/70. HEENT: Atraumatic, normocephalic. Oral mucosa is moist. NECK: Supple. CARDIOVASCULAR: S1, S2 heard. Rate and rhythm regular. RESPIRATORY: Clear to auscultation. GASTROINTESTINAL: Abdomen is soft. MUSCULOSKELETAL: No tenderness, no edema. DERMATOLOGIC: No skin rash. NEUROLOGIC: Alert and awake and oriented x3. No focal neurologic deficits. Moving all the extremit ies. PSYCHIATRIC: Mood and affect normal. LABORATORY DATA: Potassium is 5.8, BUN is 71, creatinine is 8.6. ASSESSMENT AND PLAN: 1. End-stage renal disease. We will continue on hemodialysis. 2. Hyperkalemia, better. We will have dialysis. 3. Fluid overload. The patient does not want to do more than 10 liters of fluid and plan is to have daily dialysis. The patient does not want to do more than 3 hours. 4. Noncompliance, counseled. 5. Obesity. 6. Prognosis, extremely guarded and complicated by high noncompliance. Patient was counseled again. Limit potassium, fluid and salt intake and we will continue dialysis as tolerated.
[2018-08-22] MEDS: Polyethylene Glycol 3350 17 GM Packet PO SCH (18:23)
[2018-08-22] MEDS: Folic Acid/Vit B Comp W-C PO SCH (18:24)
[2018-08-22] MEDS: Aspirin 325 MG TAB PO SCH (18:25)
[2018-08-22] MEDS: Carvedilol 3.125 MG TAB PO SCH ×2 (18:25→20:51)
[2018-08-22] MEDS: risperiDONE 0.25 MG TAB PO SCH (20:51)
[2018-08-22] MEDS: Gabapentin 300 MG CAP PO SCH (20:51)
[2018-08-22] MEDS: Atorvastatin Calcium 40 MG TAB PO SCH (20:51)
[2018-08-22] MEDS: Insulin Glargine 50 UNITS in Pre-Filled Syringe 1 EACH SC SCH (20:52)
[2018-08-22] MEDS: Melatonin 3 MG TAB PO SCH (20:57)
[2018-08-23 05:56] LABS: #Basophils 0.1 thou/uL (0.0-0.2); #Eosinphils 0.3 thou/uL (0.0-0.7); #Lymphocytes 1.3 thou/uL (1.20-3.40); #Monocytes 1.1 thou/uL (0.11-0.59); #Neutrophils 5.3 thou/uL (1.40-6.50); %Basophils 1.1 % (0.0-1.0); %Eosinophils 3.9 % (0.0-10.0); %Lymphocytes 16.3 % (21.0-51.0); %Monocytes 13.5 % (0.0-10.0); %Neutrophils 65.2 % (42.0-75.0); Hemoglobin 9.7 g/dL (14.0-18.0); Mean Corpuscular HGB CONC 30.9 g/dL (32.0-36.0); Mean Corpuscular Hemoglobin 29.3 pg (27.0-31.0); Mean Corpuscular Volume 94.7 fL (78.0-98.0); Mean Platelet Volume 8.6 fL (7.4-10.4); Platelet Count 187 thou/uL (130-400); RBC Distribution Width 13.7 % (11.5-14.5); White Blood Cell (WBC) Count 8.1 thou/uL (4.8-10.8)
[2018-08-23 06:12] LABS: Anion Gap 14 mmol/L (10-20); BUN (Urea Nitrogen) 39 mg/dL (8.9-20.6); Calc. Creatinine Clearance 34 mL/min (70-130); Calcium 9.6 mg/dL (7.8-10.44); Carbon Dioxide 32 mmol/L (22-29); Chloride 98 mmol/L (98-107); Estimated GFR-MDRD 10; Glucose 157 mg/dL (70-105); Potassium 4.7 mmol/L (3.5-5.1); Sodium 139 mmol/L (136-145)
[2018-08-23] MEDS: Lanthanum Carbonate 500 mg Tablet PO SCH ×3 (10:24→16:59)
[2018-08-23] MEDS: Aspirin 325 MG TAB PO SCH (10:26)
[2018-08-23] MEDS: Folic Acid/Vit B Comp W-C PO SCH (10:26)
[2018-08-23] MEDS: Calcium Acetate 667 MG CAP PO SCH ×2 (10:26→16:59)
[2018-08-23] MEDS: Carvedilol 3.125 MG TAB PO SCH ×2 (10:27→20:51)
[2018-08-23] MEDS: Heparin 5,000 UNITS/ML VIAL SC SCH ×3 (10:28→20:49)
[2018-08-23] MEDS: Polyethylene Glycol 3350 17 GM Packet PO SCH (10:28)
[2018-08-23] MEDS ORDERED: Lidocaine-Prilocaine 2.5% Cream 5 GM TUBE TOP SCH (14:00)
--- NOTE | 2018-08-23 14:00 | PRG ---
DATE OF SERVICE: 08/23/2018. PHYSICAL EXAMINATION: GENERAL: This is a well-built male, in no apparent distress. VITAL SIGNS: Temperature 98.7, pulse 74, respiratory rate 18, blood pressure 135/70. LABORATORY DATA: Potassium 4.7, BUN 39, creatinine 6.3. ASSESSMENT AND PLAN: 1. End-stage renal disease, fluid overload. Plan is to have daily dialysis. Might need dialysis to day and tomorrow. 2. Fluid overload. Remove fluid with dialysis started. The patient does not want to more patty n 3 hours. 3. Hyperkalemia. 4. Noncompliance. 5. Obesity. 6. Hypertension. 7. We will remove fluid with dialysis as tolerated.
--- NOTE | 2018-08-23 17:21 | PDOC.PN ---
- Subjective Encounter Start Date: 08/23/18 Encounter Start Time: 08:00 Feeling some better. Breathing better, but not at baseline. - Objective Resuscitation Status: Resuscitation Status DNR:Do Not Resuscitate Vital Signs & Weight: Vital Signs (12 hours) Temp Pulse Resp BP Pulse Ox 08/23/18 08:10 98.0 F 74 22 H 135/70 97 Weight Weight 327 lb 2.656 oz I&O: 08/22/18 08/23/18 08/24/18 06:59 06:59 06:59 Intake Total 500 908 Output Total 2505 50 Balance -2004 858 Result Diagrams: 08/23/18 05:27 08/23/18 05:27 Additional Labs: Accuchecks 08/23/18 08/23/18 08/23/18 16:37 10:37 05:57 POC Glucose 149 H 189 H 171 H 08/22/18 20:50 POC Glucose 120 H Phys Exam - Physical Examination Constitutional: NAD Obese blind Respiratory: no wheezing, no rales, no rhonchi, clear to auscultation bilateral Cardiovascular: RRR, no significant murmur Gastrointestinal: soft, non-tender, no distention, positive bowel sounds 2+ edema in the calves, less in the thighs. Neurological: non-focal Dx/Plan (1) Volume overload Code(s): E87.70 - FLUID OVERLOAD, UNSPECIFIED Status: Acute (2) Obesity Code(s): E66.9 - OBESITY, UNSPECIFIED Status: Acute (3) Anemia of renal disease Code(s): D63.1 - ANEMIA IN CHRONIC KIDNEY DISEASE Status: Chronic (4) CAD (coronary artery disease) Code(s): I25.10 - ATHSCL HEART DISEASE OF [place] CORONARY ARTERY W/O ANG PCTRS Status: Chronic Qualifiers: Coronary Disease-Associated Artery/Lesion type: bypass graft [place] vs. transplanted heart: [place] heart Associated angina: without angina Qualified Code(s): I25.810 - Atherosclerosis of coronary artery bypass graft(s) without angina pectoris (5) DM2 (diabetes mellitus, type 2) Status: Chronic Qualifiers: Diabetes mellitus retirement insulin use: with supervisor intermediates use Diabetes mellitus complication status: with unspecified complications Qualified Code(s) : E11.8 - Type 2 diabetes mellitus with unspecified complications; Z79.4 - intermodal customer service (current) use of insulin; Z79.4 - intermodal customer service (current) use of insulin; Z79.4 - intermodal customer service (current) use of insulin; Z79.4 - intermodal customer service (current) use of insulin Comment: (6) ESRD (end stage renal disease) on dialysis Code(s): N18.6 - END STAGE RENAL DISEASE; Z99.2 - DEPENDENCE ON RENAL DIALYSIS Status: Chronic (7) Hyperkalemia, diminished renal excretion Code(s): E87.5 - HYPERKALEMIA Status: Resolved - Plan * Volume removed with HD. Seems to be improving. Continue dialysis per Neph. * He has a habit of biting his finger nails and when they are gone...the finger tips to the point of bleeding. Cleaned and dressed appropriately by nursing.
[2018-08-23] MEDS: Atorvastatin Calcium 40 MG TAB PO SCH (20:49)
[2018-08-23] MEDS: risperiDONE 0.25 MG TAB PO SCH (20:50)
[2018-08-23] MEDS: Gabapentin 300 MG CAP PO SCH (20:50)
[2018-08-23] MEDS: Insulin Glargine 50 UNITS in Pre-Filled Syringe 1 EACH SC SCH (20:51)
[2018-08-23] MEDS: Melatonin 3 MG TAB PO SCH (23:24)
[2018-08-23] MEDS: HYDROcodone/Acetaminophen 5/325 mg Tablet PO PRN (23:35)
[2018-08-24 10:52] LABS: Vancomycin, Random 17.5 ug/mL (See Comment)
--- NOTE | 2018-08-24 11:24 | PRG ---
DATE OF SERVICE: 08/24/2018 SUBJECTIVE: Patient was seen and examined at bedside and overnight events noted. Patient denies any shortness of breath or chest pain or palpitation. No history of nausea or vomiting or diarrhea or fever or chills or cramps. OBJECTIVE: GENERAL: This is an obese male in no apparent distress. VITAL SIGNS: Temperature , respiratory rate 18, blood pressure 145/66. HEENT: Atraumatic, normocephalic. Oral mucosa is moist. NECK: Supple. CARDIOVASCULAR: S1 and S2 heard. Rate and rhythm regular. RESPIRATORY: Clear to auscultation. GASTROINTESTINAL: Abdomen is soft. MUSCULOSKELETAL: No tenderness. No edema. DERMATOLOGIC: No skin rash. NEUROLOGIC: Alert and awake and oriented x3. No focal neurologic deficits. Moving all the extremit ies. PSYCHIATRIC: Mood and affect normal. LABORATORY DATA: Potassium is 4.7, BUN is 39, creatinine is 6.3. ASSESSMENT AND PLAN: 1. End-stage renal disease. We will continue on dialysis as tolerated. We will have dialysis today and then continue dialysis Friday, Friday, and Friday. 2. Fluid overload. Remove fluid as tolerated. 3. Hyperkalemia. 4. Noncompliance. 5. Obesity. 6. Hypertension. Plan to have dialysis and remove fluid with dialysis as tolerated.
[2018-08-24] MEDS: Calcium Acetate 667 MG CAP PO SCH ×2 (12:59→16:35)
[2018-08-24] MEDS: Heparin 5,000 UNITS/ML VIAL SC SCH ×3 (12:59→21:15)
[2018-08-24] MEDS: Polyethylene Glycol 3350 17 GM Packet PO SCH (12:59)
[2018-08-24] MEDS: Lanthanum Carbonate 500 mg Tablet PO SCH ×3 (12:59→16:35)
[2018-08-24] MEDS: Carvedilol 3.125 MG TAB PO SCH ×2 (13:08→21:15)
[2018-08-24] MEDS: Aspirin 325 MG TAB PO SCH (13:08)
[2018-08-24] MEDS: Folic Acid/Vit B Comp W-C PO SCH (13:09)
--- NOTE | 2018-08-24 15:36 | RAD ---
AP VIEW CHEST: HISTORY: A 42-year-old with a history of being fluid overloaded, congestive heart failure. FINDINGS: AP view chest is obtained on 08/24/2018. Comparison is made to previous exam from 08/21/2018. AP view chest demonstrates sternotomy wires seen. Cardiomegaly noted. The left heart border is obsc ured. I do recommend correlation with PA and lateral views of the chest as there may be possible lef t upper lobe pneumonia or left upper lobectomy. Correlate with the surgical history. IMPRESSION: Cardiomegaly and pulmonary vascular congestion. POS: [facility]
--- NOTE | 2018-08-24 16:04 | PQF ---
EMEKA SPENCE DAVID R MD [id number] [id number] CLINICAL DOCUMENTATION IMPROVEMENT CLARIFICATION FORM: ICD-10 Updated PLEASE DO AN ADDENDUM TO THE PROGRESS NOTE WITH ANY DOCUMENTATION UPDATES OR ADDITIONS AND CARRY THROUGH TO DC SUMMARY. THANK YOU. DATE: 08-24-18 ATTN: DR. URIAS Please exercise your independent, professional judgment in responding to the clarification form. Clinical indicators are provided on the bottom of this form for your review Please check appropriate box(s): [ ] Empirically treating Gram Negative Pneumonia [ ] Empirically treating Anaerobic Pneumonia [ ] Simple Pneumonia (community acquired - nosocomial) [ ] Pneumonia of unknown etiology [ x] Other diagnosis volume overload secondary to ESRD and noncompliance with HD._ [ ] Unable to determine In addition, please specify: Present on Admission (POA): [ ] Yes [ ] No [ ] Unable to determine For continuity of documentation, please document condition throughout progress notes and discharge summary. Thank You. CLINICAL INDICATORS - SIGNS / SYMPTOMS / LABS ED: PT REPORTS SOB; VOMITING MODERATE RESP DISTRESS; BREATH SOUNDS DIMINISHED; BLE PITTING EDEMA +2 08-21 CXR: RIGHT PLEURAL INFILTRATE 08-24 CXR: THERE MAY BE POSSIBLE LEFT UPPER LOBE PNA OR LEFT UPPER LOBECTOMY - PULMONARY VASCUALR CONGESTION LABS: 08-21 WBC 11.8 08-23 ([place]) BREATHING BETTER, BUT NOT AT BASELINE RISK FACTORS 08-21 (MARIA DEL CARMEN): RESIDENT OF [facility] ESRD ON HEMODIALYSIS TREATMENTS: ED: LEVAQUIN IV 10-12 VANCOMYCIN IV - ZOSYN IV 08-21 MAR: 08-23 LEVAQUIN IV 10-15 VANCOMYCIN IV 08-21 TO 08-24 OXYGEN O2 NC 1.5 - 3 LNC THANK YOU, ISABELLA (This form is maintained as a part of the permanent medical record) 2014 [email or web address], [employer]. All Rights Reserved Isabella Wren RN, BS [email or web address]
--- NOTE | 2018-08-24 21:05 | PDOC.PN ---
- Subjective Encounter Start Date: 08/24/18 Encounter Start Time: 13:00 Feeling better, but still has some chest congestion and productive cough. He says he has not been able to walk since his last heart issue. He says his legs are just weak. Spends his time in bed or up in a chair, but does not ambulate. - Objective Resuscitation Status: Resuscitation Status DNR:Do Not Resuscitate Vital Signs & Weight: Vital Signs (12 hours) Temp Pulse Pulse Resp BP BP Pulse Ox 08/24/18 16:32 98.0 F 85 18 127/77 93 L 08/24/18 15:28 83 134/64 Pulse Ox 08/24/18 16:32 08/24/18 15:28 95 Weight Weight 328 lb 7.82 oz I&O: 08/23/18 08/24/18 08/25/18 06:59 06:59 06:59 Intake Total 908 1229 Output Total 50 500 Balance 858 729 Result Diagrams: 08/23/18 05:27 08/23/18 05:27 Additional Labs: Accuchecks 08/24/18 08/24/18 08/24/18 16:51 13:07 05:43 POC Glucose 225 H 147 H 132 H 08/23/18 20:14 POC Glucose 133 H Phys Exam - Physical Examination Constitutional: NAD morbid obesity Blind Respiratory: no wheezing, no rales, no rhonchi Compromised exam due to habitus. Cardiovascular: RRR, no significant murmur, no rub Gastrointestinal: soft, non-tender, no distention 2+ edema to pretibial area bilaterally. Psychiatric: normal affect Dx/Plan (1) Volume overload Code(s): E87.70 - FLUID OVERLOAD, UNSPECIFIED Status: Acute Comment: Continue to pull volume with HD. (2) Obesity Code(s): E66.9 - OBESITY, UNSPECIFIED Status: Acute (3) Anemia of renal disease Code(s): D63.1 - ANEMIA IN CHRONIC KIDNEY DISEASE Status: Chronic (4) CAD (coronary artery disease) Code(s): I25.10 - ATHSCL HEART DISEASE OF [place] CORONARY ARTERY W/O ANG PCTRS Status: Chronic Qualifiers: Coronary Disease-Associated Artery/Lesion type: bypass graft [place] vs. transplanted heart: [place] heart Associated angina: without angina Qualified Code(s): I25.810 - Atherosclerosis of coronary artery bypass graft(s) without angina pectoris (5) DM2 (diabetes mellitus, type 2) Status: Chronic Qualifiers: Diabetes mellitus fdc insulin use: with fdc use Diabetes mellitus complication status: with unspecified complications Qualified Code(s) : E11.8 - Type 2 diabetes mellitus with unspecified complications; Z79.4 - stenciler (current) use of insulin; Z79.4 - senior care (current) use of insulin; Z79.4 - senior care (current) use of insulin; Z79.4 - senior care (current) use of insulin Comment: Well controlled. (6) ESRD (end stage renal disease) on dialysis Code(s): N18.6 - END STAGE RENAL DISEASE; Z99.2 - DEPENDENCE ON RENAL DIALYSIS Status: Chronic - Plan * CXR revealed pulmonary congestion, but no sign of infiltrate. Will discontinue abx because there initial concern for pneumonia has been ruled out. * Continue daily HD per nephrology. Can discharge when volume adequately controlled.
[2018-08-24] MEDS: Atorvastatin Calcium 40 MG TAB PO SCH (21:14)
[2018-08-24] MEDS: Gabapentin 300 MG CAP PO SCH (21:14)
[2018-08-24] MEDS: Insulin Glargine 50 UNITS in Pre-Filled Syringe 1 EACH SC SCH (21:16)
[2018-08-24] MEDS: risperiDONE 0.25 MG TAB PO SCH (21:16)
[2018-08-24] MEDS: Melatonin 3 MG TAB PO SCH (22:27)
[2018-08-25 06:24] LABS: Anion Gap 18 mmol/L (10-20); BUN (Urea Nitrogen) 54 mg/dL (8.9-20.6); Calc. Creatinine Clearance 28 mL/min (70-130); Calcium 9.4 mg/dL (7.8-10.44); Carbon Dioxide 24 mmol/L (22-29); Chloride 98 mmol/L (98-107); Estimated GFR-MDRD 8; Glucose 170 mg/dL (70-105); Potassium 5.1 mmol/L (3.5-5.1); Sodium 135 mmol/L (136-145)
[2018-08-25] MEDS: Aspirin 325 MG TAB PO SCH (08:33)
[2018-08-25] MEDS: Polyethylene Glycol 3350 17 GM Packet PO SCH (08:33)
[2018-08-25] MEDS: Calcium Acetate 667 MG CAP PO SCH ×3 (08:33→17:53)
[2018-08-25] MEDS: Carvedilol 3.125 MG TAB PO SCH ×3 (08:33→22:10)
[2018-08-25] MEDS: Heparin 5,000 UNITS/ML VIAL SC SCH ×3 (08:33→22:09)
[2018-08-25] MEDS: Folic Acid/Vit B Comp W-C PO SCH (08:33)
[2018-08-25] MEDS: Lanthanum Carbonate 500 mg Tablet PO SCH ×4 (08:36→17:53)
--- NOTE | 2018-08-25 11:52 | PRG ---
Date of service: 08/25/2018 SUBJECTIVE: Patient was seen and examined at bedside and overnight events noted. Patient denies any shortness of breath or chest pain or palpitation. No history of nausea or vomiting or diarrhea or f ever or chills or cramps. OBJECTIVE: GENERAL: This is an obese male, in no acute distress. VITAL SIGNS: Temperature 98.2, heart rate 82, respiratory rate 16, blood pressure 135/78. HEENT: Atraumatic, normocephalic. Oral mucosa is moist. NECK: Supple. CARDIOVASCULAR: S1, S2 heard. Rate and rhythm regular. RESPIRATORY: Clear to auscultation. GASTROINTESTINAL: Abdomen is soft. MUSCULOSKELETAL: No tenderness. No edema. DERMATOLOGIC: No skin rash. NEUROLOGIC: Alert and awake and oriented x3. No focal neurologic deficits. Moving all the extremit ies. PSYCHIATRIC: Mood and affect normal LABORATORY DATA: Potassium is 5.1, BUN is 54, creatinine 7.2. ASSESSMENT AND PLAN: 1. End-stage renal disease. We will continue hemodialysis as tolerated. 2. Fluid overload. Remove fluid. 3. Hyperkalemia, better. 4. Noncompliance, obesity and hypertension. . The patient is chronically hyperkalemic as outp atient with his controlled diet. Potassium is stable. The patient is noncompliant with his di et and fluid restriction. Remains hyperkalemic and fluid overloaded. He is completely compliant wit h the dialysis sessions. Due to shortening and missing treatments, patient was counseled again. 4. Hyperkalemia. 5. Edema. Plan is to have extra session of dialysis today. The patient was advised to limit fluid and salt int cher.
--- NOTE | 2018-08-25 18:13 | PDOC.PN ---
- Subjective Encounter Start Date: 08/25/18 Encounter Start Time: 08:15 Continues to have some cough. Has sinus congestion and drainage. - Objective Resuscitation Status: Resuscitation Status DNR:Do Not Resuscitate Vital Signs & Weight: Vital Signs (12 hours) Temp Pulse Pulse Pulse Resp BP BP 08/25/18 13:30 83 86 138/59 L 140/61 08/25/18 11:51 97.6 F 79 18 08/25/18 08:28 97.6 F 80 16 BP Pulse Ox Pulse Ox Pulse Ox 08/25/18 13:30 96 95 08/25/18 11:51 151/67 H 98 08/25/18 08:28 135/78 93 L Weight Weight 325 lb 13.491 oz I&O: 08/24/18 08/25/18 08/26/18 06:59 06:59 06:59 Intake Total 1229 400 Output Total 500 125 Balance 729 275 Result Diagrams: 08/23/18 05:27 08/25/18 05:22 Additional Labs: Accuchecks 08/25/18 08/25/18 08/25/18 17:21 11:13 05:50 POC Glucose 104 177 H 156 H 08/24/18 08/24/18 21:07 16:51 POC Glucose 152 H 225 H Phys Exam - Physical Examination Constitutional: NAD Obese Respiratory: no wheezing, no rales, no rhonchi, clear to auscultation bilateral Cardiovascular: RRR, no significant murmur Gastrointestinal: soft, non-tender, no distention 1+ edema. Psychiatric: normal affect Dx/Plan (1) Volume overload Code(s): E87.70 - FLUID OVERLOAD, UNSPECIFIED Status: Acute Comment: Continue to pull volume with HD. Much improved overall. (2) Obesity Code(s): E66.9 - OBESITY, UNSPECIFIED Status: Acute (3) Anemia of renal disease Code(s): D63.1 - ANEMIA IN CHRONIC KIDNEY DISEASE Status: Chronic (4) CAD (coronary artery disease) Code(s): I25.10 - ATHSCL HEART DISEASE OF [place] CORONARY ARTERY W/O ANG PCTRS Status: Chronic Qualifiers: Coronary Disease-Associated Artery/Lesion type: bypass graft [place] vs. transplanted heart: [place] heart Associated angina: without angina Qualified Code(s): I25.810 - Atherosclerosis of coronary artery bypass graft(s) without angina pectoris (5) DM2 (diabetes mellitus, type 2) Status: Chronic Qualifiers: Diabetes mellitus fpc insulin use: with director data management use Diabetes mellitus complication status: with unspecified complications Qualified Code(s) : E11.8 - Type 2 diabetes mellitus with unspecified complications; Z79.4 - nursing home (current) use of insulin; Z79.4 - corporate administrator (current) use of insulin; Z79.4 - nursing home (current) use of insulin; Z79.4 - nursing home (current) use of insulin Comment: Well controlled. (6) ESRD (end stage renal disease) on dialysis Code(s): N18.6 - END STAGE RENAL DISEASE; Z99.2 - DEPENDENCE ON RENAL DIALYSIS Status: Chronic (7) Sinusitis Code(s): J32.9 - CHRONIC SINUSITIS, UNSPECIFIED Status: Acute - Plan * Volume is improved. Anticipate discharge tomorrow. Can resume the MWF regimen. * Can have oral abx for sinusitis at discharge.
[2018-08-25] MEDS: Insulin Glargine 50 UNITS in Pre-Filled Syringe 1 EACH SC SCH (22:09)
[2018-08-25] MEDS: Gabapentin 300 MG CAP PO SCH (22:10)
[2018-08-25] MEDS: Atorvastatin Calcium 40 MG TAB PO SCH (22:10)
[2018-08-25] MEDS: risperiDONE 0.25 MG TAB PO SCH (22:10)
[2018-08-25] MEDS: HYDROcodone/Acetaminophen 5/325 mg Tablet PO PRN (22:17)
[2018-08-25] MEDS: Melatonin 3 MG TAB PO SCH (22:22)
[2018-08-26] MEDS: Lanthanum Carbonate 500 mg Tablet PO SCH ×3 (09:22→17:40)
[2018-08-26] MEDS: Folic Acid/Vit B Comp W-C PO SCH (09:23)
[2018-08-26] MEDS: Calcium Acetate 667 MG CAP PO SCH ×2 (09:23→17:40)
[2018-08-26] MEDS: Polyethylene Glycol 3350 17 GM Packet PO SCH (09:23)
[2018-08-26] MEDS ORDERED: Heparin 10,000 UNITS/ 10 ML VIAL ONE (10:00)
[2018-08-26] MEDS: Aspirin 325 MG TAB PO SCH (10:15)
[2018-08-26] MEDS: Carvedilol 3.125 MG TAB PO SCH (10:15)
[2018-08-26] MEDS: Heparin 5,000 UNITS/ML VIAL SC SCH ×3 (11:30→15:34)
[2018-08-26 12:14] LABS: #Basophils 0.2 thou/uL (0.0-0.2); #Eosinphils 0.3 thou/uL (0.0-0.7); #Lymphocytes 1.7 thou/uL (1.20-3.40); #Monocytes 1.1 thou/uL (0.11-0.59); #Neutrophils 9.4 thou/uL (1.40-6.50); %Basophils 1.3 % (0.0-1.0); %Eosinophils 2.7 % (0.0-10.0); %Lymphocytes 13.4 % (21.0-51.0); %Monocytes 8.6 % (0.0-10.0); %Neutrophils 74.1 % (42.0-75.0); Hemoglobin 10.5 g/dL (14.0-18.0); Mean Corpuscular HGB CONC 31.7 g/dL (32.0-36.0); Mean Corpuscular Volume 94.8 fL (78.0-98.0); Mean Platelet Volume 8.7 fL (7.4-10.4); Platelet Count 211 thou/uL (130-400); RBC Distribution Width 13.7 % (11.5-14.5); Red Blood Cell (RBC) Count 3.51 mill/uL (4.70-6.10); White Blood Cell (WBC) Count 12.6 thou/uL (4.8-10.8)
[2018-08-26] MEDS: HYDROcodone/Acetaminophen 5/325 mg Tablet PO PRN (17:38)
--- NOTE | 2018-08-26 18:09 | PRG ---
DATE OF SERVICE: 08/26/2018 SUBJECTIVE: Patient was seen and examined at bedside and overnight events noted. Patient denies any shortness of breath or chest pain or palpitation. No history of nausea or vomiting or diarrhea or f ever or chills or cramps. OBJECTIVE: GENERAL: This is an obese male in no apparent distress. VITAL SIGNS: Temperature 98.1, pulse 81, respiratory rate 18, blood pressure 123/59. HEENT: Atraumatic, normocephalic. Oral mucosa is moist. NECK: Supple. CARDIOVASCULAR: S1, S2 heard. Rate and rhythm regular. RESPIRATORY: Clear to auscultation. GASTROINTESTINAL: Abdomen is soft. MUSCULOSKELETAL: No tenderness. No edema. DERMATOLOGIC: No skin rash. NEUROLOGIC: Alert and awake and oriented x3. No focal neurologic deficits. Moving all the extremiti es. PSYCHIATRIC: Mood and affect normal. LABORATORY DATA: Not done today. ASSESSMENT AND PLAN: 1. End-stage renal disease. Continue on dialysis as tolerated. 2. Fluid overload. 3. Hyperkalemia that is noncompliant. 4. Edema. 5. We will remove fluid with dialysis as tolerated.
[2018-08-26 18:35] VITALS: BP 113/67; TEMP 97.9
--- NOTE | 2018-08-29 10:35 | EKG ---
Test Reason : Blood Pressure : / mmHG Vent. Rate : 088 BPM Atrial Rate : 088 BPM P-R Int : 200 ms QRS Dur : 188 ms QT Int : 422 ms P-R-T Axes : -01 150 013 degrees QTc Int : 510 ms Normal sinus rhythm Right axis deviation Non-specific intra-ventricular conduction block Abnormal ECG Confirmed by JOCELYNE HILL ([id number]), editorial manager DARIELA ESPINOZA ([id number]) on 08/29/2018 10:34:40 AM Referred By: Confirmed By:JOCELYNE HILL
== END 2018-08-26 19:42 | DRG 682 ==
LOC: ERS 11:54 → 2NO 17:50
PROVIDERS: ADMIT Internal Medicine; ATTEND Internal Medicine
PROC: 5A1D70Z Performance of Urinary Filtration, Intermittent, Less than 6 Hours Per Day (ICD-10-PCS; principal; 2018-08-21)
DX: I12.0 Hypertensive chronic kidney disease with stage 5 chronic kidney disease or end stage renal disease (principal); N18.6 End stage renal disease; Z68.42 Body mass index [BMI] 45.0-49.9, adult; E87.2 Acidosis; E87.70 Fluid overload, unspecified; E87.5 Hyperkalemia; Z91.15 Patient's noncompliance with renal dialysis; E11.22 Type 2 diabetes mellitus with diabetic chronic kidney disease; J01.90 Acute sinusitis, unspecified; Z99.2 Dependence on renal dialysis; I25.10 Atherosclerotic heart disease of native coronary artery without angina pectoris; D63.1 Anemia in chronic kidney disease; R09.02 Hypoxemia; E11.51 Type 2 diabetes mellitus with diabetic peripheral angiopathy without gangrene; Z66 Do not resuscitate; E66.9 Obesity, unspecified; Z95.1 Presence of aortocoronary bypass graft; E11.319 Type 2 diabetes mellitus with unspecified diabetic retinopathy without macular edema; Z95.2 Presence of prosthetic heart valve; Z89.422 Acquired absence of other left toe(s); Z89.421 Acquired absence of other right toe(s)
CPT/HCPCS: 36415; 36416; 71045; 80048; 80053; 80202; 82553; 84484; 85025; 87040; 90935; 93005; 93970; 96365; 96367; 96375; G0257; G8978-GP-CN; G8979-GP-CK; G8987-GO-CM; G8988-GO-CK; J1644; J1815; J1956; J2543; J3370; J7050

== ENCOUNTER 2019-02-09 22:06 | Inpatient (IN) | payer MEDICARE, MEDICAID ==
--- NOTE | 2019-02-09 22:49 | RAD ---
FEXAM: Portable chest PROVIDED CLINICAL HISTORY: Cough COMPARISON: 08/24/2013 FINDINGS: Evaluation is limited by patient body habitus. Cardiac silhouette remains enlarged. Median sternotomy changes are seen. Patchy parenchymal opacity involving the left midlung zone is suspected. No eviden ce for large effusion. No evidence for pneumothorax. IMPRESSION: Limited study. Left midlung zone airspace disease is suspected, which may reflect pneumonia in the ap propriate clinical context. Follow-up is recommended.
[2019-02-09 22:50] LABS: #Basophils 0.1 thou/uL (0.0-0.2); #Eosinphils 0.3 thou/uL (0.0-0.7); #Lymphocytes 1.4 thou/uL (1.20-3.40); #Monocytes 1.1 thou/uL (0.11-0.59); #Neutrophils 10.1 thou/uL (1.40-6.50); %Basophils 0.5 % (0.0-1.0); %Lymphocytes 11.1 % (21.0-51.0); %Monocytes 8.7 % (0.0-10.0); %Neutrophils 77.8 % (42.0-75.0); Hemoglobin 10.7 g/dL (14.0-18.0); Mean Corpuscular HGB CONC 31.6 g/dL (32.0-36.0); Mean Corpuscular Volume 94.9 fL (78.0-98.0); Platelet Count 216 thou/uL (130-400); RBC Distribution Width 15.1 % (11.5-14.5); Red Blood Cell (RBC) Count 3.55 mill/uL (4.70-6.10); White Blood Cell (WBC) Count 12.9 thou/uL (4.8-10.8)
[2019-02-09 23:07] LABS: ALT (SGPT) 9 U/L (8-55); AST (SGOT) 7 U/L (5-34); Albumin 3.9 g/dL (3.5-5.0); Alkaline Phosphatase 283 U/L (40-150); Anion Gap 24 mmol/L (10-20); BUN (Urea Nitrogen) 117 mg/dL (8.9-20.6); Bilirubin, Total 0.4 mg/dL (0.2-1.2); Calc. Creatinine Clearance 0 mL/min (70-130); Calcium 9.1 mg/dL (7.8-10.44); Carbon Dioxide 25 mmol/L (22-29); Chloride 95 mmol/L (98-107); Estimated GFR-MDRD 4; Globulin 3.5 g/dL (2.4-3.5); Glucose 153 mg/dL (70-105); Protein, Total 7.4 g/dL (6.0-8.3); Sodium 136 mmol/L (136-145)
[2019-02-09 23:13] LABS: Potassium 8.1 mmol/L (3.5-5.1)
[2019-02-09] MEDS ORDERED: Piperacillin/Tazobactam 4.5 GM VIAL ONE (23:36)
[2019-02-09] MEDS ORDERED: HYDROcodone/Acetaminophen 5/325 mg Tablet ONE (23:36)
[2019-02-09] MEDS ORDERED: Vancomycin HCl 1.5 GM in Sodium Chloride 0.9% 250 ML 300 ML IVPB SCH (23:45)
[2019-02-10] MEDS ORDERED: Ondansetron PF 4 MG/2 ML Vial IVP PRN (00:09)
[2019-02-10] MEDS ORDERED: Senokot S 8.6-50 MG TAB PO PRN (00:09)
[2019-02-10] MEDS ORDERED: Acetaminophen 325 MG TAB PO PRN (00:09)
[2019-02-10] MEDS ORDERED: Zolpidem Tartrate 5 MG TAB PO PRN (00:09)
[2019-02-10] MEDS ORDERED: Albuterol Sulfate 2.5 mg/3 ml Neb ONE (00:12)
[2019-02-10] MEDS ORDERED: tiZANidine HCl 4 MG TAB PO PRN (00:12)
[2019-02-10] MEDS ORDERED: Dextrose 50% Abboject 50 ML SYRINGE SLOW IVP PRN (00:15)
[2019-02-10] MEDS ORDERED: Dextrose 5% in Water 1,000 ML IV PRN (00:15)
[2019-02-10] MEDS ORDERED: HumaLOG 300 UNITS/3 ML VIAL SC PRN ×2 (00:15)
--- NOTE | 2019-02-10 00:18 | PDOC.EVN ---
Event Note - Event Note Event Note: H&P [id number]
--- NOTE | 2019-02-10 00:49 | HP ---
CHIEF COMPLAINT: "Not feeling well all over." HISTORY OF PRESENT ILLNESS: This is a 43-year-old male, being admitted to the hospital and was seen in the ER for not feeling well. The patient was found to have severe significant hyperkalemia, apparently was dialyzed on Friday, and misses dialysis session yesterday. The patient was found to have a potassium of 8.5 in the ER. Call placed to the customer experience intern who has placed orders for dialysis to be done in the ER. The patient states that he is having significant swelling, edema, and pain all over. The patient states that he has these type of feelings whenever he misses out on his dialysis treatments. The patient states that, otherwise, he has no other associated symptoms or complaints. No alleviating or aggravating factors noted. The patient was seen and examined in the ER. All questions answered. No family at bedside. ALLERGIES: NO KNOWN DRUG ALLERGIES. PAST MEDICAL HISTORY: Positive for diabetes mellitus, ESRD, metabolic bone disease, anemia of renal disease, hypertension, hyperlipidemia, morbid obesity, and heart failure. SOCIAL HISTORY: Nondrinker and nonsmoker. FAMILY HISTORY: Noncontributory. HOME MEDICATIONS: See MAR. REVIEW OF SYSTEMS: All systems reviewed, pertinent positives in HPI, otherwise negative. PHYSICAL EXAMINATION: VITAL SIGNS: Blood pressure 170/100. GENERAL: The patient appears in moderate discomfort, lying in bed, covered in blankets, is morbidly obese. HEENT: Pupils are equal, round, and reactive to light and accommodation. Oral cavity moist and pink. NECK: Supple, mobile, and nontender. Thyroid appreciated. PULMONARY: Distant lung sounds, but appeared clear. Mild increase in AP diameter. No respiratory distress. CARDIOVASCULAR: Again distant heart sounds. Faint systolic ejection murmur appreciated. S1 and S2. Sinus rhythm. ABDOMEN: Rotund. Positive bowel sounds. Soft, nontender, and nondistended. EXTREMITIES: 2+ pitting edema in bilateral lower extremities. 2+ peripheral pulses noted. LABORATORY DATA: CBC and BMP reviewed. ASSESSMENT: 1. Life-threatening hyperkalemia. 2. End-stage renal disease. 3. Hyperlipidemia. 4. Hypertension. 5. Anemia. 6. Metabolic bone disease. 7. Metabolic acidosis secondary to renal disease. 8. Diabetes mellitus type 2. PLAN: At this point in time, we will admit the patient to Internal Medicine Team. Dialysis orders have already placed by customer experience intern per ER sign out. We will provide the patient with p.r.n. oxygen, pain medication as well as repeat lab work in the morning. Insulin for his diabetes. The patient wishes to remain a full code. Advised heavily to not ever miss dialysis again as this is a very life-threatening situation that has land himself right now. The patient expressed understanding of his condition. Case and plan were discussed with the patient at length. He understood and agreed with this plan and wishes to remain a full code. No family at bedside. Job ID: [id number]
[2019-02-10 01:06] LABS: HBSAB Concentration 5.12 mIU/mL; HBSAg Index 0.31 S/CO (0-0.99); Hep B Surf AB Non-Reactive (NonReactive); Hep B Surf Ag Non-Reactive S/CO (NonReactive)
[2019-02-10] MEDS ORDERED: diphenhydrAMINE 50 MG/ML VIAL ONE (03:14)
[2019-02-10] MEDS ORDERED: diphenhydrAMINE 50 MG/ML VIAL IVP SCH (04:00)
[2019-02-10 04:09] LABS: #Basophils 0.1 thou/uL (0.0-0.2); #Eosinphils 0.3 thou/uL (0.0-0.7); #Lymphocytes 0.9 thou/uL (1.20-3.40); #Monocytes 0.8 thou/uL (0.11-0.59); #Neutrophils 8.8 thou/uL (1.40-6.50); %Basophils 0.7 % (0.0-1.0); %Eosinophils 2.3 % (0.0-10.0); %Lymphocytes 8.6 % (21.0-51.0); %Monocytes 7.6 % (0.0-10.0); %Neutrophils 80.7 % (42.0-75.0); Hemoglobin 10.6 g/dL (14.0-18.0); Mean Corpuscular HGB CONC 32.2 g/dL (32.0-36.0); Mean Corpuscular Hemoglobin 30.2 pg (27.0-31.0); Mean Corpuscular Volume 93.8 fL (78.0-98.0); Platelet Count 211 thou/uL (130-400); RBC Distribution Width 15.2 % (11.5-14.5); Red Blood Cell (RBC) Count 3.51 mill/uL (4.70-6.10); White Blood Cell (WBC) Count 10.9 thou/uL (4.8-10.8)
[2019-02-10 04:29] LABS: Anion Gap 19 mmol/L (10-20); BUN (Urea Nitrogen) 56 mg/dL (8.9-20.6); Calc. Creatinine Clearance 0 mL/min (70-130); Calcium 9.1 mg/dL (7.8-10.44); Carbon Dioxide 26 mmol/L (22-29); Chloride 97 mmol/L (98-107); Estimated GFR-MDRD 8; Glucose 110 mg/dL (70-105); Potassium 5.1 mmol/L (3.5-5.1); Sodium 137 mmol/L (136-145)
[2019-02-10] MEDS ORDERED: Docusate 100 MG CAP PO PRN (08:55)
[2019-02-10] MEDS ORDERED: Vancomycin HCl 1 GM in Premix Bag 1 BAG IVPB SCH ×2 (09:00→10:45)
[2019-02-10] MEDS ORDERED: VANCOMYCIN/ZOSYN IVPB PRN (09:02)
[2019-02-10] MEDS ORDERED: HOLD VANCOMYCIN FOR LEVEL >20 FS SCH (10:45)
[2019-02-10] MEDS ORDERED: Vancomycin HCl 1.25 GM in Sodium Chloride 0.9% 250 ML 250 ML IVPB SCH (10:45)
[2019-02-10] MEDS ORDERED: Vancomycin HCl 750 MG in Sodium Chloride 0.9% 250 ML 250 ML IVPB SCH (10:45)
[2019-02-10] MEDS ORDERED: Vancomycin HCl 1.5 GM in Sodium Chloride 0.9% 250 ML 300 ML IVPB SCH (10:45)
[2019-02-10] MEDS ORDERED: Piperacillin/Tazobactam 3.375 GM in Sodium Chloride 0.9% 100 ML IVPB SCH (12:00)
--- NOTE | 2019-02-10 12:03 | CON ---
DATE OF CONSULTATION: 02/10/2019 CONSULTING PHYSICIAN: Darion Torre DO REASON FOR CONSULT: Severe hyperkalemia and end-stage renal disease. HISTORY OF PRESENT ILLNESS: A 43-year-old male with history of type 2 diabetes, end-stage renal disease on hemodialysis, and anemia, came to the hospital with above complaints and feeling weak and the patient is very noncompliant with diet and dialysis sessions. Missed dialysis and was found to have a potassium 8.1. No fever or chills. No nausea or vomiting. PAST MEDICAL HISTORY: Positive for type 2 diabetes, end-stage renal disease, anemia, hypertension, hyperlipidemia, morbid obesity. PAST SURGICAL HISTORY: Dialysis access placement. HOME MEDICATIONS: Include; 1. Zanaflex. 2. MiraLAX. 3. Veltassa. 4. Zofran. 5. Fosrenol. 6. Lorazepam. 7. [place]. 8. Joana-Anel Rx . 9. Coreg. ALLERGIES: NO KNOWN DRUG ALLERGIES. SOCIAL HISTORY: No smoking, alcohol, or illicit drug use. FAMILY HISTORY: No history of kidney disease. REVIEW OF SYSTEMS: CONSTITUTIONAL: Negative for weight loss or gain, ability to conduct usual activities. SKIN: Negative for rash, itching. EYES: Negative for double vision, pain. ENT/MOUTH: Negative for nose bleeding, neck stiffness, pain, tenderness. CARDIOVASCULAR: Negative for palpitations, dyspnea on exertion, orthopnea. RESPIRATORY: Negative for shortness of breath, wheezing, cough, hemoptysis, fever or night sweats. GASTROINTESTINAL: Negative for poor appetite, abdominal pain, heartburn, nausea, vomiting, constipation, or diarrhea. GENITOURINARY: Negative for urgency, frequency, dysuria, nocturia. MUSCULOSKELETAL: Negative for pain, swelling. NEUROLOGIC/PSYCHIATRIC: Negative for anxiety, depression. ALLERGY/IMMUNOLOGIC: Negative for skin rash, bleeding tendency. PHYSICAL EXAMINATION: GENERAL: This is a well-built male, in no apparent distress. VITAL SIGNS: Temperature 98.3, pulse 70, respirations 18, blood pressure 178/70. HEENT: Atraumatic and normocephalic. Oral mucosa is moist. NECK: Supple. CV: S1 and S2 heard. Rate and rhythm regular. RESPIRATORY: Clear. GASTROINTESTINAL: Abdomen is soft. MUSCULOSKELETAL: 1+ edema. DERMATOLOGIC: No skin rash. NEUROLOGIC: Alert and awake. PSYCHIATRIC: Normal mood and affect. LABORATORY DATA: Hemoglobin is 10.6. Potassium is 5.1, BUN is 56, creatinine is 7.4. Potassium was 8.1. ASSESSMENT AND PLAN: 1. Severe hyperkalemia. Plan is to have emergent dialysis. 2. End-stage renal disease. We will have dialysis. 3. Anemia. 4. Morbid obesity. 5. Edema. 6. Hypertension. Remove fluid. Plan is to have 2 or 3 sessions of dialysis as tolerated. Limit potassium intake. We will follow. The patient is highly noncompliant with medication and dietary regimen. We will follow. Job ID: [id number]
[2019-02-10] MEDS ORDERED: Aspirin 325 MG TAB ONE (13:26)
[2019-02-10] MEDS ORDERED: HumaLOG 300 UNITS/3 ML VIAL ONE (13:29)
[2019-02-10] MEDS: Aspirin 325 MG TAB PO SCH (16:56)
[2019-02-10] MEDS: Carvedilol 3.125 MG TAB PO SCH ×2 (16:56→20:59)
[2019-02-10] MEDS: Heparin 5,000 UNITS/ML VIAL SC SCH ×2 (16:57→21:00)
[2019-02-10] MEDS: Piperacillin/Tazobactam 2.25 GM in Sodium Chloride 0.9% 100 ML IVPB SCH ×2 (16:57→17:55)
[2019-02-10] MEDS: Polyethylene Glycol 3350 17 GM Packet PO SCH (16:57)
[2019-02-10] MEDS: HumaLOG 300 UNITS/3 ML VIAL SC SCH ×2 (16:57→17:02)
[2019-02-10] MEDS: Cetirizine HCl 10 MG TAB PO SCH (16:57)
[2019-02-10 17:09] VITALS: BMI 57.2
[2019-02-10] MEDS: Atorvastatin Calcium 40 MG TAB PO SCH (20:59)
[2019-02-10] MEDS: Melatonin 3 MG TAB PO SCH (20:59)
[2019-02-10] MEDS: risperiDONE 0.25 MG TAB PO SCH (21:00)
[2019-02-10] MEDS: Insulin Glargine 10 UNITS in Pre-Filled Syringe 1 EACH SC SCH (21:01)
--- NOTE | 2019-02-10 21:23 | PDOC.PN ---
- Subjective Encounter Start Date: 02/10/19 Encounter Start Time: 14:00 Subjective: pt up in bed no complains - Objective Vital Signs & Weight: Vital Signs (12 hours) Temp Pulse Resp BP Pulse Ox 02/10/19 20:54 98.5 F 90 19 132/65 97 Weight Weight 399 lb 0.587 oz Result Diagrams: 02/10/19 03:35 02/10/19 03:35 Additional Labs: Accuchecks 02/10/19 11:26 POC Glucose 169 H Phys Exam - Physical Examination Neck: no nodes, no JVD, supple, full ROM Respiratory: no wheezing, no rales, no rhonchi, wheezing present, clear to auscultation bilateral Cardiovascular: RRR, no significant murmur, no rub, gallop, irregular Gastrointestinal: soft, non-tender, no distention, positive bowel sounds Dx/Plan (1) Hyperkalemia Code(s): E87.5 - HYPERKALEMIA Status: Resolved (2) Pneumonia Code(s): J18.9 - PNEUMONIA, UNSPECIFIED ORGANISM Status: Acute (3) Obesity Code(s): E66.9 - OBESITY, UNSPECIFIED Status: Acute (4) ESRD (end stage renal disease) on dialysis Code(s): N18.6 - END STAGE RENAL DISEASE; Z99.2 - DEPENDENCE ON RENAL DIALYSIS Status: Chronic (5) DM2 (diabetes mellitus, type 2) Status: Chronic Qualifiers: Diabetes mellitus moth exterminator insulin use: with intermediate use Diabetes mellitus complication status: with unspecified complications Qualified Code(s) : E11.8 - Type 2 diabetes mellitus with unspecified complications; Z79.4 - intermodal customer service (current) use of insulin; Z79.4 - jail (current) use of insulin; Z79.4 - jail (current) use of insulin; Z79.4 - jail (current) use of insulin - Plan pt underwent dialysis, his K post was 5. -: will start him on abx, he states he has been coughing for the past -: few days. will cover him for HCAP since he lives in a group home -: will continue his home meds. * . Review of Systems - Review of Systems Respiratory: Cough, Shortness of Breath Cardiovascular: negative: chest pain, palpitations, orthopnea, paroxysmal nocturnal dyspnea, edema, light headedness, other Gastrointestinal: negative: Nausea, Vomiting, Abdominal Pain, Diarrhea, Constipation, Melena, Hematochezia, Other Musculoskeletal: negative: Neck Pain, Shoulder Pain, Arm Pain, Back Pain, Hand Pain, Leg Pain, Foot Pain, Other - Medications/Allergies Allergies/Adverse Reactions: Allergies Allergy/AdvReac Type Severity Reaction Status Date / Time No Known Allergies Allergy Verified 02/10/19 16:30 Medications: Current Medications Acetaminophen (Tylenol) 650 mg PO Q4H PRN PRN Reason: Headache/Fever/Mild Pain (1-3) Aspirin (Aspirin) 325 mg PO DAILY [facility] Last Admin: 02/10/19 16:56 Dose: Not Given Atorvastatin Calcium (Lipitor) 40 mg PO HS [facility] Last Admin: 02/10/19 20:59 Dose: 40 mg Carvedilol (Coreg) 3.125 mg PO BID [facility] Last Admin: 02/10/19 20:59 Dose: 3.125 mg Cetirizine HCl (Zyrtec) 10 mg PO DAILY [facility] Last Admin: 02/10/19 16:57 Dose: Not Given Cholecalciferol (Vitamin D3) 2,000 units PO DAILY [facility] Last Admin: 02/10/19 16:57 Dose: Not Given Dextrose/Water (Dextrose 50%) 25 gm SLOW IVP PRN PRN PRN Reason: Hypoglycemia Docusate Sodium (Colace) 100 mg PO PRN PRN PRN Reason: Constipation Glucagon (Glucagon) 1 mg IM PRN PRN PRN Reason: Hypoglycemia Heparin Sodium (Porcine) (Heparin) 5,000 units SC BID [facility] Last Admin: 02/10/19 21:00 Dose: 5,000 units Dextrose/Water (D5w) 1,000 mls @ 0 mls/hr IV .Q0M PRN PRN Reason: Hypoglycemia Insulin Glargine 10 units/ (Miscellaneous Medication) 0.1 mls @ 0 mls/hr SC HS [facility] Last Admin: 02/10/19 21:01 Dose: 0.1 mls Piperacillin Sod/Tazobactam (Sod 2.25 gm/ Sodium Chloride) 100 mls @ 200 mls/ hr IVPB 0300,1100,1900 [facility] Last Admin: 02/10/19 17:55 Dose: 100 mls Vancomycin HCl 1.5 gm/ Sodium (Chloride) 300 mls @ 200 mls/hr IVPB WILLCALL [facility] Vancomycin HCl 1.25 gm/ Sodium (Chloride) 250 mls @ 166.667 mls/hr IVPB [facility] Vancomycin HCl 1 gm/ Device 200 mls @ 200 mls/hr IVPB WILLCALL [facility] Vancomycin HCl 750 mg/ Sodium (Chloride) 250 mls @ 250 mls/hr IVPB WILLCALL [facility] Insulin Human Lispro (Humalog) 0 units SC .MILD SLIDING SCALE PRN PRN Reason: Mild Correctional Scale Insulin Human Lispro (Humalog) 0 units SC .BEDTIME SLIDING SC PRN PRN Reason: Bedtime Correctional Scale Insulin Human Lispro (Humalog) 5 units SC [facility] Last Admin: 02/10/19 17:02 Dose: 5 unit Lorazepam (Ativan) 1 mg PO Q6H PRN PRN Reason: Anxiety Melatonin (Melatonin) 3 mg PO [facility] Last Admin: 02/10/19 20:59 Dose: 3 mg Miscellaneous Medication (Pharmacy To Dose) 1 each IVPB PRN PRN PRN Reason: Pharmacy to dose Hold Vancomycin For (Level >20) 0 each FS .AT DIALYSIS [facility] Ondansetron HCl (Zofran) 4 mg IVP Q6H PRN PRN Reason: Nausea/Vomiting Polyethylene Glycol (Miralax) 17 gm PO DAILY [facility] Last Admin: 02/10/19 16:57 Dose: Not Given Risperidone (Risperidone) 0.5 mg PO [facility] Last Admin: 02/10/19 21:00 Dose: 0.5 mg Senna/Docusate Sodium (Senokot S) 2 tab PO BIDPRN PRN PRN Reason: Constipation Sodium Chloride (Flush - Normal Saline) 10 ml IVF Q12H PRN PRN Reason: Saline Flush Tizanidine HCl (Zanaflex) 4 mg PO Q8H PRN PRN Reason: muscle spasms Zolpidem Tartrate (Ambien) 5 mg PO HSPRN PRN PRN Reason: Insomnia
[2019-02-10] MEDS: HYDROcodone/Acetaminophen 5/325 mg Tablet PO PRN (23:29)
[2019-02-11] MEDS: Lorazepam 1 MG TAB PO PRN ×2 (00:45→16:49)
[2019-02-11] MEDS: Piperacillin/Tazobactam 2.25 GM in Sodium Chloride 0.9% 100 ML IVPB SCH ×3 (03:05→20:17)
--- NOTE | 2019-02-11 10:55 | PRG ---
DATE OF SERVICE: SUBJECTIVE: Patient was seen and examined at bedside and overnight events noted. Patient denies any shortness of breath or chest pain or palpitation. No history of nausea or vomiting or diarrhea or fever or chills or cramps. OBJECTIVE: GENERAL: This is an obese male, in no apparent distress. VITAL SIGNS: Temperature 97.9. Heart rate . Respiratory rate 16. Blood pressure 125/75. HEENT: Atraumatic, normocephalic. Oral mucosa is moist NECK: Supple. CARDIOVASCULAR: S1, S2 heard. Rate and rhythm regular. RESPIRATORY: Clear to auscultation. GASTROINTESTINAL: Abdomen is soft. MUSCULOSKELETAL: No tenderness. No edema. DERMATOLOGIC: No skin rash. NEUROLOGIC: Alert and awake and oriented X3. No focal neurologic deficits. Moving all the extremities. PSYCHIATRIC: Mood and affect normal. LABORATORY DATA: No labs done today. ASSESSMENT AND PLAN: 1. End-stage renal disease. Continue dialysis. 2. Severe hyperkalemia, better. 3. Anemia. 4. Edema. 5. Hypertension. Plan is to have an extra session of dialysis today. The patient is highly noncompliant. Job ID: [id number]
[2019-02-11] MEDS: HYDROcodone/Acetaminophen 5/325 mg Tablet PO PRN ×2 (12:09→16:49)
[2019-02-11] MEDS: HumaLOG 300 UNITS/3 ML VIAL SC SCH ×2 (13:06→19:26)
[2019-02-11] MEDS: Aspirin 325 MG TAB PO SCH (13:06)
[2019-02-11] MEDS: Polyethylene Glycol 3350 17 GM Packet PO SCH (13:07)
[2019-02-11] MEDS: Heparin 5,000 UNITS/ML VIAL SC SCH ×2 (13:07→20:19)
[2019-02-11] MEDS: Carvedilol 3.125 MG TAB PO SCH ×2 (13:07→20:19)
[2019-02-11] MEDS: Cetirizine HCl 10 MG TAB PO SCH (13:07)
--- NOTE | 2019-02-11 14:29 | PQF ---
BEBEEJ ROHAN [id number] CLINICAL DOCUMENTATION IMPROVEMENT CLARIFICATION FORM: ICD-10 Updated PLEASE DO AN ADDENDUM TO THE PROGRESS NOTE WITH ANY DOCUMENTATION UPDATES OR ADDITIONS AND CARRY THROUGH TO DC SUMMARY. THANK YOU. DATE: 02/11/2019 ATTN: DR. Kavita JC Please exercise your independent, professional judgment in responding to the clarification form. Clinical indicators are provided on the bottom of this form for your review. Please check appropriate box(s) to clarify if the following diagnosis has been ruled in or ruled out: LEFT SIDE PNEUMONIA [ x ] Ruled in diagnosis [ x ] Continue to treat [ ] Resolved [ ] Ruled out diagnosis [ ] Other diagnosis [ ] Unable to determine In addition, please specify: Present on Admission (POA): [ x ] Yes [ ] No [ ] Unable to determine For continuity of documentation, please document condition throughout progress notes and discharge summary. Thank You. CLINICAL INDICATORS - SIGNS / SYMPTOMS / LABS 4/2 ED PROVIDER DX: LEFT SIDED PNEUMONIA 4/2 CXR IMPRESSION: LEFT MIDLUNG ZONE AIRSPACE DISEASE IS SUSPECTED, WHICH MAY REFLECT PNEUMONIA IN THE APPROPRIATE CLINICAL CONTEXT. 4/2 H &P (PANTANKAR) PHYSICAL EXAM : PULMONARY - DISTANT LUNG SOUNDS BUT APPEARED CLEAR. MILD INCREASE IN AP DIAMETER. NO RESPIRATORY DISTRESS. 4/3 PN (BHIMJI) DX/PLAN: 2) PNEUMONIA,UNSPECIFIED STATUS, ACUTE RISK: LONG TERM RESIDENT CHF ESRD TREATMENTS: ZOSYN IV (4/3 - PRESENT) O2 THERAPY (4/3- PRESENT) CXR THANK YOU! [place] (This form is maintained as a part of the permanent medical record) 2014 [employer] All Rights Reserved [email or web address] [phone] MTDD
--- NOTE | 2019-02-11 15:02 | PDOC.PN ---
- Subjective Encounter Start Date: 02/11/19 Encounter Start Time: 15:00 Patient seen and examined, no new issues or complaints, all questions answered. - Objective Vital Signs & Weight: Vital Signs (12 hours) Temp Pulse Resp BP Pulse Ox 02/11/19 07:46 97.9 F 80 16 125/75 98 Weight Admit Weight 399 lb 0.587 oz Weight 399 lb 0.587 oz I&O: 02/10/19 02/11/19 02/12/19 06:59 06:59 06:59 Intake Total 800 Balance 800 Result Diagrams: 02/10/19 03:35 02/10/19 03:35 Additional Labs: Accuchecks 02/11/19 02/10/19 11:14 20:55 POC Glucose 146 H 188 H Phys Exam - Physical Examination Constitutional: NAD morbidly obese HEENT: PERRLA, moist MMs, sclera anicteric Neck: no nodes, no JVD, supple, full ROM Respiratory: clear to auscultation bilateral distant lung sounds Cardiovascular: RRR, no significant murmur, no rub Gastrointestinal: soft, non-tender, no distention, positive bowel sounds Musculoskeletal: pulses present, edema present (1+) Dx/Plan (1) Pneumonia Code(s): J18.9 - PNEUMONIA, UNSPECIFIED ORGANISM Status: Acute (2) Volume overload Code(s): E87.70 - FLUID OVERLOAD, UNSPECIFIED Status: Acute Comment: Continue to pull volume with HD. Much improved overall. (3) Anemia of renal disease Code(s): D63.1 - ANEMIA IN CHRONIC KIDNEY DISEASE Status: Chronic (4) CAD (coronary artery disease) Code(s): I25.10 - ATHSCL HEART DISEASE OF [place] CORONARY ARTERY W/O ANG PCTRS Status: Chronic Qualifiers: Coronary Disease-Associated Artery/Lesion type: bypass graft [place] vs. transplanted heart: [place] heart Associated angina: without angina Qualified Code(s): I25.810 - Atherosclerosis of coronary artery bypass graft(s) without angina pectoris (5) DM2 (diabetes mellitus, type 2) Status: Chronic Qualifiers: Diabetes mellitus meterman insulin use: with meterman use Diabetes mellitus complication status: with unspecified complications Qualified Code(s) : E11.8 - Type 2 diabetes mellitus with unspecified complications; Z79.4 - detention (current) use of insulin; Z79.4 - manager intermediate (current) use of insulin; Z79.4 - manager intermediate (current) use of insulin; Z79.4 - detention (current) use of insulin (6) Sepsis Code(s): A41.9 - SEPSIS, UNSPECIFIED ORGANISM Status: Suspected Qualifiers: Sepsis type: methicillin resistant Staphylococcus aureus Qualified Code(s) : A41.02 - Sepsis due to Methicillin resistant Staphylococcus aureus - Plan * labs in AM * HD pe renal * cont abx * cultures pending * DC plans in 24-48hrs if patient improving, cultures remain negative * case and plan d/w patient at length, he understood and agreed with this plan.
[2019-02-11] MEDS: Melatonin 3 MG TAB PO SCH (20:19)
[2019-02-11] MEDS: risperiDONE 0.25 MG TAB PO SCH (20:19)
[2019-02-11] MEDS: Atorvastatin Calcium 40 MG TAB PO SCH (20:19)
[2019-02-11] MEDS: Insulin Glargine 10 UNITS in Pre-Filled Syringe 1 EACH SC SCH (20:20)
[2019-02-11 20:35] LABS: Anion Gap 18 mmol/L (10-20); BUN (Urea Nitrogen) 46 mg/dL (8.9-20.6); Calc. Creatinine Clearance 33 mL/min (70-130); Carbon Dioxide 27 mmol/L (22-29); Chloride 96 mmol/L (98-107); Estimated GFR-MDRD 8; Glucose 243 mg/dL (70-105); Potassium 5.3 mmol/L (3.5-5.1); Sodium 136 mmol/L (136-145)
[2019-02-12] MEDS: Piperacillin/Tazobactam 2.25 GM in Sodium Chloride 0.9% 100 ML IVPB SCH ×2 (02:52→13:52)
[2019-02-12] MEDS: Cetirizine HCl 10 MG TAB PO SCH (07:57)
[2019-02-12] MEDS: Carvedilol 3.125 MG TAB PO SCH (07:57)
[2019-02-12] MEDS: HumaLOG 300 UNITS/3 ML VIAL SC SCH ×3 (07:58→17:12)
[2019-02-12] MEDS: Aspirin 325 MG TAB PO SCH (07:58)
[2019-02-12] MEDS: Heparin 5,000 UNITS/ML VIAL SC SCH (07:59)
[2019-02-12] MEDS: Polyethylene Glycol 3350 17 GM Packet PO SCH (08:00)
[2019-02-12 09:47] LABS: Vancomycin, Random 12.5 ug/mL (See Comment)
[2019-02-12 09:48] LABS: Anion Gap 18 mmol/L (10-20); BUN (Urea Nitrogen) 60 mg/dL (8.9-20.6); Calc. Creatinine Clearance 28 mL/min (70-130); Calcium 8.7 mg/dL (7.8-10.44); Carbon Dioxide 28 mmol/L (22-29); Chloride 98 mmol/L (98-107); Estimated GFR-MDRD 7; Glucose 224 mg/dL (70-105); Potassium 5.7 mmol/L (3.5-5.1); Sodium 138 mmol/L (136-145)
[2019-02-12] MEDS: HYDROcodone/Acetaminophen 5/325 mg Tablet PO PRN (09:58)
[2019-02-12 11:50] LABS: #Basophils 0.1 thou/uL (0.0-0.2); #Eosinphils 0.2 thou/uL (0.0-0.7); #Lymphocytes 0.8 thou/uL (1.20-3.40); #Monocytes 0.7 thou/uL (0.11-0.59); #Neutrophils 6.3 thou/uL (1.40-6.50); %Basophils 0.7 % (0.0-1.0); %Eosinophils 2.5 % (0.0-10.0); %Lymphocytes 9.8 % (21.0-51.0); Hemoglobin 10.3 g/dL (14.0-18.0); Mean Corpuscular HGB CONC 30.6 g/dL (32.0-36.0); Mean Corpuscular Hemoglobin 29.6 pg (27.0-31.0); Mean Corpuscular Volume 96.8 fL (78.0-98.0); Mean Platelet Volume 8.5 fL (7.4-10.4); Platelet Count 205 thou/uL (130-400); Red Blood Cell (RBC) Count 3.46 mill/uL (4.70-6.10); White Blood Cell (WBC) Count 8.1 thou/uL (4.8-10.8)
--- NOTE | 2019-02-12 12:22 | PDOC.EVN ---
Event Note - Event Note Event Note: DC SUMMARY #[id number]
[2019-02-12] MEDS ORDERED: Fleet Enema 133 ML BOT PR SCH (14:30)
[2019-02-12 15:58] VITALS: BP 130/71; TEMP 98.3
--- NOTE | 2019-02-12 16:00 | PRG ---
DATE OF SERVICE: 02/12/2019 SUBJECTIVE: Patient was seen and examined at bedside and overnight events noted. Patient denies any shortness of breath or chest pain or palpitation. No history of nausea or vomiting or diarrhea or fever or chills or cramps. OBJECTIVE: GENERAL: This is a morbidly obese male, in no apparent distress. VITAL SIGNS: Temperature 97. Heart rate 83. Respiratory rate 18. Blood pressure 145/74. HEENT: Atraumatic, normocephalic. Oral mucosa is moist NECK: Supple. CARDIOVASCULAR: S1, S2 heard. Rate and rhythm regular. RESPIRATORY: Clear to auscultation. GASTROINTESTINAL: Abdomen is soft. MUSCULOSKELETAL: No tenderness. No edema. DERMATOLOGIC: No skin rash. NEUROLOGIC: Alert and awake and oriented X3. No focal neurologic deficits. Moving all the extremities. PSYCHIATRIC: Mood and affect normal. LABORATORY DATA: Potassium is 5.7, BUN is 60, creatinine is 8.7. ASSESSMENT AND PLAN: 1. End-stage renal disease. We will continue dialysis. The patient is hesitant to have dialysis. 2. Edema. We will remove fluid. 3. Severe hyperkalemia. 4. Anemia. 5. Hypertension. Plan is to continue on dialysis as tolerated. Job ID: [id number]
--- NOTE | 2019-02-13 03:02 | DIS ---
DATE OF ADMISSION: 02/09/2019 DATE OF DISCHARGE: 02/12/2019 ADMITTING DIAGNOSES: Cough, fevers, chills, shortness of breath, morbid obesity, coronary artery disease, hypertension, end-stage renal disease, metabolic bone disease, anemia of renal disease. DISCHARGE DIAGNOSES: Pneumonia, resolving. End-stage renal disease, hypertension, metabolic bone disease, diabetes mellitus type 2, obesity, coronary artery disease, hyperlipidemia. HOSPITAL COURSE: This is a 43-year-old male who was admitted to the hospital initially with life-threatening hyperkalemia of 8.1. The patient had emergent dialysis done. The patient was also found to have left lobe pneumonia, was started on medical treatments with significant improvement. The patient had 2-3 dialysis stations in the hospital. Potassium level was normalized. The patient was discharged home with azithromycin 500 mg daily for 5 days. The patient was advised to not miss or skip any of his dialysis sessions. Advised to pursue aggressive weight loss and take all of his medications as directed. At this point in time of discharge, the patient was stable. Denied any nausea, vomiting, diarrhea, constipation, chest pain, fevers, or shortness of breath. Temperatures were stable. Vital signs stable. No fevers. Tolerating diet and was given medications for constipation, Fleet enema. The patient did have a bowel movement as well. The patient otherwise stated that he is back to baseline. All questions answered at point in time of discharge. DISPOSITION: Back to his senior care. FOLLOWUP: Follow up with PCP and Nephrology in 1-2 days as well as dialysis in the morning. MEDICATIONS: See MAR. ACTIVITY: As tolerated with assistance as needed. CONDITION: Stable. PROGNOSIS: Guarded. DIET: Low-fat low-calorie high-fiber. Case and plan discussed with the patient at length. He understood and agreed with this plan. Job ID: [id number]
== END 2019-02-12 18:11 | DRG 640 ==
LOC: ERS 22:06 → ERHOLD 23:41 → T4-B 02-10 14:44
PROVIDERS: ADMIT Internal Medicine; ATTEND Internal Medicine
PROC: 5A1D70Z Performance of Urinary Filtration, Intermittent, Less than 6 Hours Per Day (ICD-10-PCS; principal; 2019-02-09)
DX: E87.5 Hyperkalemia (principal); N18.6 End stage renal disease; J18.9 Pneumonia, unspecified organism; I13.2 Hypertensive heart and chronic kidney disease with heart failure and with stage 5 chronic kidney disease, or end stage renal disease; Z91.15 Patient's noncompliance with renal dialysis; E11.22 Type 2 diabetes mellitus with diabetic chronic kidney disease; D63.1 Anemia in chronic kidney disease; E78.5 Hyperlipidemia, unspecified; E66.01 Morbid (severe) obesity due to excess calories; I50.9 Heart failure, unspecified; I25.10 Atherosclerotic heart disease of native coronary artery without angina pectoris; E88.9 Metabolic disorder, unspecified; Z79.899 Other long term (current) drug therapy; Z99.2 Dependence on renal dialysis; Z79.4 Long term (current) use of insulin; Z79.82 Long term (current) use of aspirin
CPT/HCPCS: 36415; 36416; 71045; 80048; 80053; 80202; 83880; 84484; 85025; 86706; 87340; 93005; 94640; 96365; 96366; J1200; J1644; J1825; J2405; J2543; J3370; J7050; J7611; J7620